=== PATIENT | male | born 1930 | race Caucasian/White ===

== ENCOUNTER 2020-06-14 21:06 | Inpatient (IN) | payer MEDICARE ==
--- NOTE | 2020-06-14 21:25 | ED ---
General Adult HPI - General Chief complaint: Urogenital Stated complaint: Dehydration Time Seen by Provider: 06/14/20 21:09 Source: patient, EMS Mode of arrival: EMS Limitations: altered mental status - History of Present Illness Initial comments: Patient presents the ED by ambulance from his assisted living facility for evaluation of urinary retention. Per EMS, it was reported to them that the patient's Barnard catheter has not been draining urine today. Patient is noted to have abrasions to the right side of his scalp on arrival to the ED, which EMS states the patient sustained from a fall that he had a few days ago, but the assisted living facility staff were not concerned about this. History from the patient is very limited secondary to dementia. Patient repeatedly states "I am " when asked how he feels. Patient denies having any pain to me. Patient is able to tell me his name, but he is disoriented to place and time. Patient is reportedly DO NOT RESUSCITATE. - Related Data Home Medications Medication Instructions Recorded Confirmed Citalopram Hydrobromide [CeleXA] 20 mg PO DAILY 06/14/20 06/14/20 Donepezil [Aricept] 10 mg PO DAILY 06/14/20 06/14/20 Naproxen Sodium [Aleve] 220 mg PO DAILY PRN 06/14/20 06/14/20 Tamsulosin HCl [Flomax] 0.4 mg PO BID 06/14/20 06/14/20 Allergies Allergy/AdvReac Type Severity Reaction Status Date / Time No Known Allergies Allergy Unverified 06/14/20 21:29 Review of Systems ROS Statement: Those systems with pertinent positive or pertinent negative responses have been documented in the HPI. ROS Other: All systems not noted in ROS Statement are negative. Limitations: ROS unobtainable due to patients medical condition Past Medical History Past Medical History: Dementia, Osteoarthritis (OA), Prostate Disorder History of Any Multi-Drug Resistant Organisms: None Reported Additional Past Surgical History / Comment(s): urogenital implants Past Psychological History: Depression Smoking Status: Former smoker Past Alcohol Use History: None Reported Past Drug Use History: None Reported General Exam Limitations: no limitations General appearance: alert, in no apparent distress Head exam: Present: other (Superficial abrasions are noted to the right side of the patient's frontal scalp) Eye exam: Present: normal appearance, PERRL, EOMI ENT exam: Present: mucous membranes moist, TM's normal bilaterally Neck exam: Present: other (Trachea is in midline). Absent: tenderness Respiratory exam: Present: normal lung sounds bilaterally. Absent: respiratory distress, wheezes, rales, rhonchi Cardiovascular Exam: Present: regular rate, irregular rhythm, normal heart sounds, other (Normal radial pulses bilaterally) GI/Abdominal exam: Present: soft. Absent: distended, tenderness, guarding exam: Present: other (a Barnard catheter is in place with no urine draining from the catheter; there is some blood noted around the patient's urethral meatus). Absent: scrotal swelling Extremities exam: Absent: tenderness, pedal edema Back exam: Absent: CVA tenderness (R), CVA tenderness (L) Neurological exam: Present: alert, other (Patient is oriented to himself, but not to time or place). Absent: motor sensory deficit Psychiatric exam: Present: normal affect, normal mood Skin exam: Present: warm, dry, intact, normal color Course Vital Signs 06/14/20 06/14/20 21:14 22:05 Temperature 98.0 F Pulse Rate 109 H 105 H Respiratory 18 16 Rate Blood Pressure 124/69 96/59 O2 Sat by Pulse 99 98 Oximetry - Reevaluation(s) Reevaluation #1: 06/14/20 22:41 Case, H&P, test results and ED management were discussed with Dr. Ni. He accepts hospital admission. He has no further recommendations at this time. EKG Findings - EKG Comments: EKG Findings:: Atrial fibrillation with RVR, ventricular rate of 110 bpm, normal QRS duration, normal QT interval, normal axis, nonspecific ST and T-wave abnormality Medical Decision Making - Medical Decision Making Patient's Barnard catheter was exchanged in the ED by ED nursing staff with an immediate output of about 1 L of urine. Some purulent drainage was also noted draining into the patient's catheter. Patient's laboratory evaluation reveals renal insufficiency of unknown chronicity, as well as hypernatremia. Patient's urinalysis also appears to demonstrate possible infection, and given patient's leukocytosis, patient was treated with IV Rocephin for suspected UTI. Dr. Ni has accepted hospital admission for further evaluation and management. - Lab Data Result diagrams: 06/14/20 21:42 06/14/20 21:42 Lab Results 06/14/20 06/14/20 06/14/20 Range/Units 21:42 21:42 21:42 WBC 17.1 H (3.8-10.6) k/uL RBC 4.34 (4.30-5.90) m/uL Hgb 12.7 L (13.0-17.5) gm/dL Hct 39.2 (39.0-53.0) % MCV 90.2 (80.0-100.0) fL MCH 29.2 (25.0-35.0) pg MCHC 32.3 (31.0-37.0) g/dL RDW 13.6 (11.5-15.5) % Plt Count 550 H (150-450) k/uL MPV 7.5 Neutrophils % 87 % Lymphocytes % 8 % Monocytes % 4 % Eosinophils % 1 % Basophils % 0 % Neutrophils # 14.8 H (1.3-7.7) k/uL Lymphocytes # 1.4 (1.0-4.8) k/uL Monocytes # 0.6 (0-1.0) k/uL Eosinophils # 0.1 (0-0.7) k/uL Basophils # 0.1 (0-0.2) k/uL PT 12.9 H (9.0-12.0) sec INR 1.3 H (<1.2) APTT 24.7 (22.0-30.0) sec Sodium 153 H (137-145) mmol/L Potassium 3.9 (3.5-5.1) mmol/L Chloride 121 H (98-107) mmol/L Carbon Dioxide 28 (22-30) mmol/L Anion Gap 4 mmol/L BUN 69 H (9-20) mg/dL Creatinine 2.07 H (0.66-1.25) mg/dL Est GFR (CKD-EPI)AfAm 32 (>60 ml/min/1.73 sqM) Est GFR (CKD-EPI)NonAf 28 (>60 ml/min/1.73 sqM) Glucose 142 H (74-99) mg/dL Plasma Lactic Acid Roger (0.7-2.0) mmol/L Calcium 8.8 (8.4-10.2) mg/dL Total Bilirubin 0.8 (0.2-1.3) mg/dL AST 26 (17-59) U/L ALT 27 (4-49) U/L Alkaline Phosphatase 98 (38-126) U/L Total Protein 6.3 (6.3-8.2) g/dL Albumin 2.7 L (3.5-5.0) g/dL Urine Color Urine Appearance (Clear) Urine pH (5.0-8.0) Ur Specific [place] (1.001-1.035) Urine Protein (Negative) Urine Glucose (UA) (Negative) Urine Ketones (Negative) Urine Blood (Negative) Urine Nitrite (Negative) Urine Bilirubin (Negative) Urine Urobilinogen (<2.0) mg/dL Ur Leukocyte Esterase (Negative) Urine RBC (0-5) /hpf Urine WBC (0-5) /hpf Urine WBC Clumps (None) /hpf 06/14/20 06/14/20 Range/Units 21:42 22:02 WBC (3.8-10.6) k/uL RBC (4.30-5.90) m/uL Hgb (13.0-17.5) gm/dL Hct (39.0-53.0) % MCV (80.0-100.0) fL MCH (25.0-35.0) pg MCHC (31.0-37.0) g/dL RDW (11.5-15.5) % Plt Count (150-450) k/uL MPV Neutrophils % % Lymphocytes % % Monocytes % % Eosinophils % % Basophils % % Neutrophils # (1.3-7.7) k/uL Lymphocytes # (1.0-4.8) k/uL Monocytes # (0-1.0) k/uL Eosinophils # (0-0.7) k/uL Basophils # (0-0.2) k/uL PT (9.0-12.0) sec INR (<1.2) APTT (22.0-30.0) sec Sodium (137-145) mmol/L Potassium (3.5-5.1) mmol/L Chloride (98-107) mmol/L Carbon Dioxide (22-30) mmol/L Anion Gap mmol/L BUN (9-20) mg/dL Creatinine (0.66-1.25) mg/dL Est GFR (CKD-EPI)AfAm (>60 ml/min/1.73 sqM) Est GFR (CKD-EPI)NonAf (>60 ml/min/1.73 sqM) Glucose (74-99) mg/dL Plasma Lactic Acid Roger 2.0 (0.7-2.0) mmol/L Calcium (8.4-10.2) mg/dL Total Bilirubin (0.2-1.3) mg/dL AST (17-59) U/L ALT (4-49) U/L Alkaline Phosphatase (38-126) U/L Total Protein (6.3-8.2) g/dL Albumin (3.5-5.0) g/dL Urine Color Light Yellow Urine Appearance Turbid (Clear) Urine pH 5.5 (5.0-8.0) Ur Specific [place] 1.014 (1.001-1.035) Urine Protein 1+ H (Negative) Urine Glucose (UA) Negative (Negative) Urine Ketones Negative (Negative) Urine Blood Large H (Negative) Urine Nitrite Negative (Negative) Urine Bilirubin Negative (Negative) Urine Urobilinogen <2.0 (<2.0) mg/dL Ur Leukocyte Esterase Large H (Negative) Urine RBC >182 H (0-5) /hpf Urine WBC >182 H (0-5) /hpf Urine WBC Clumps Many H (None) /hpf Disposition Clinical Impression: Urinary retention, Fall, Scalp abrasion, UTI (urinary tract infection), Hypernatremia, Renal insufficiency Disposition: ADMITTED IP TO THIS [facility] Condition: Stable Is patient prescribed a controlled substance at d/c from ED?: No Referrals: Nonstaff,Physician [Primary Care Provider] - 1-2 days Time of Disposition: 22:41
[2020-06-14] MEDS ORDERED: DIPH,PERTUS(ACELL)TETVAC-LF 0.5 ML VIAL IM ONE (21:28)
[2020-06-14 22:09] LABS: Appearance,Urine Turbid (Clear); Bilirubin,Urine Negative (Negative); Blood,Urine Large (Negative); Color,Urine Light Yellow; Glucose,Urine (UA) Negative (Negative); Ketones,Urine Negative (Negative); Leukocyte Esterase,Urine Large (Negative); Nitrite,Urine Negative (Negative); PH, Urine 5.5 (5.0-8.0); Protein,Urine 1+ (Negative); RBC,Urine >182 /hpf (0-5); Specific Gravity,Urine 1.014 (1.001-1.035); Urobilinogen,Urine <2.0 mg/dL (<2.0); WBC,Urine >182 /hpf (0-5)
[2020-06-14 22:10] LABS: Basophils # (A) 0.1 k/uL (0-0.2); Basophils % (A) 0 %; Eosinophils # (A) 0.1 k/uL (0-0.7); Eosinophils % (A) 1 %; HCT 39.2 % (39.0-53.0); HGB 12.7 gm/dL (13.0-17.5); Lymphocytes # (A) 1.4 k/uL (1.0-4.8); Lymphocytes % (A) 8 %; MCH 29.2 pg (25.0-35.0); MCHC 32.3 g/dL (31.0-37.0); MCV 90.2 fL (80.0-100.0); Mean Platelet Volume 7.5; Monocytes # (A) 0.6 k/uL (0-1.0); Monocytes % (A) 4 %; Neutrophils # (A) 14.8 k/uL (1.3-7.7); Neutrophils % (A) 87 %; Platelet Count 550 k/uL (150-450); RBC 4.34 m/uL (4.30-5.90); RDW 13.6 % (11.5-15.5); WBC 17.1 k/uL (3.8-10.6)
[2020-06-14] MEDS ORDERED: SODIUM CHLORIDE 0.9% 1,000 ML IV ONE (22:13)
[2020-06-14 22:24] LABS: Albumin 2.7 g/dL (3.5-5.0); Calcium 8.8 mg/dL (8.4-10.2); Potassium 3.9 mmol/L (3.5-5.1); Total Bilirubin 0.8 mg/dL (0.2-1.3); Total Protein 6.3 g/dL (6.3-8.2)
[2020-06-14 22:28] LABS: INR 1.3 (<1.2); Partial Thromboplastin Time 24.7 sec (22.0-30.0); Prothrombin Time 12.9 sec (9.0-12.0)
--- NOTE | 2020-06-14 22:32 | CT ---
EXAMINATION TYPE: CT brain jael gutierrez DATE OF EXAM: 06/14/2020 COMPARISON: None HISTORY: Fall injury CT DLP: 1325 mGycm Automated exposure control for dose reduction was used. There is cerebral cortical atrophy. There is no mass effect nor midline shift. There is no sign of in tracranial hemorrhage. There is hypodensity in the periventricular white matter and more noticeable a round the frontal lobes. The calvarium is intact. Skull base is intact. Cervical vertebra have normal alignment. There is mild spurring anteriorly in the lower cervical spin e. There is no compression fracture. Facet joints are intact. There is mild spurring of the facet chantel nts. There is fracture of the medial and of the left clavicle with impaction and callus formation. IMPRESSION: Cerebral atrophy. Chronic small vessel ischemia. No acute intracranial abnormality. Mild spondylotic changes in the cervical spine. No fracture. Healing fracture of the medial left clavicle.
[2020-06-14] MEDS ORDERED: SODIUM CHLORIDE 0.9% 1,000 ML IV SCH (22:45)
[2020-06-15] MEDS ORDERED: SODIUM CHLORIDE 0.45% 1,000 ML IV SCH (01:30)
[2020-06-15 06:44] LABS: Basophils % (A) 0 %; Eosinophils # (A) 0.1 k/uL (0-0.7); Eosinophils % (A) 1 %; HCT 33.4 % (39.0-53.0); HGB 10.7 gm/dL (13.0-17.5); Hypochromasia Slight; Lymphocytes # (A) 1.5 k/uL (1.0-4.8); Lymphocytes % (A) 10 %; MCH 29.5 pg (25.0-35.0); MCHC 32.2 g/dL (31.0-37.0); MCV 91.5 fL (80.0-100.0); Mean Platelet Volume 7.1; Monocytes # (A) 0.5 k/uL (0-1.0); Monocytes % (A) 3 %; Neutrophils # (A) 13.1 k/uL (1.3-7.7); Neutrophils % (A) 86 %; Platelet Count 502 k/uL (150-450); RBC 3.65 m/uL (4.30-5.90); RDW 13.8 % (11.5-15.5); WBC 15.3 k/uL (3.8-10.6)
[2020-06-15 06:57] LABS: Albumin 2.4 g/dL (3.5-5.0); Total Protein 5.6 g/dL (6.3-8.2)
[2020-06-15 07:12] LABS: Potassium 3.6 mmol/L (3.5-5.1); Total Bilirubin 0.7 mg/dL (0.2-1.3)
[2020-06-15 07:28] VITALS: RESP 16
[2020-06-15] MEDS: DONEPEZIL 10 MG TAB PO SCH (07:28)
[2020-06-15] MEDS: CITALOPRAM HYDROBROMIDE 20 MG TAB PO SCH (07:28)
[2020-06-15] MEDS: TAMSULOSIN 0.4 MG CAP.ER.24H PO SCH ×2 (07:28→19:47)
[2020-06-15] MEDS: DEXTROSE 5%-0.9% NACL 1,000 ML IV SCH (11:16)
--- NOTE | 2020-06-15 13:30 | P.HPIM ---
History of Present Illness His is a pleasant 89-year-old male with advanced dementia, unable to provide any history to me came in for urinary retention secondary to clogged or obstructed Barnard catheter..Patient's Barnard catheter was replaced and patient has a chronic Barnard catheter. Patient urine is significantly abnormal which is not unexpected. Patient was a started on Rocephin for possible urinary tract infection although patient is significantly dehydrated and do not have his baseline creatinine but his BNP creatinine are elevated to 69 and 2.07 with hypernatremia and hyperchloremia. Patient has advanced dementia extreme poor functionality. Review of Systems REVIEW OF SYSTEMS: Unable to obtain due to his clinical condition Past Medical History Past Medical History: Dementia, Osteoarthritis (OA), Prostate Disorder History of Any Multi-Drug Resistant Organisms: None Reported Additional Past Surgical History / Comment(s): urogenital implants Past Psychological History: Depression Smoking Status: Former smoker Past Alcohol Use History: None Reported Past Drug Use History: None Reported Medications and Allergies Home Medications Medication Instructions Recorded Confirmed Type Citalopram Hydrobromide [CeleXA] 20 mg PO DAILY 06/14/20 06/14/20 History Donepezil [Aricept] 10 mg PO DAILY 06/14/20 06/14/20 History Naproxen Sodium [Aleve] 220 mg PO DAILY PRN 06/14/20 06/14/20 History Tamsulosin HCl [Flomax] 0.4 mg PO BID 06/14/20 06/14/20 History Allergies Allergy/AdvReac Type Severity Reaction Status Date / Time No Known Allergies Allergy Unverified 06/14/20 21:29 Physical Exam Vitals: Vital Signs Temp Pulse Pulse Resp BP BP Pulse Ox 06/15/20 07:00 98 F 94 16 119/77 99 06/15/20 02:20 98.0 F 98 17 97/63 99 06/15/20 00:20 101 H 16 06/15/20 00:10 97.9 F 101 H 16 109/72 95 06/14/20 23:34 105 H 16 107/65 98 06/14/20 22:50 108 H 16 109/69 98 06/14/20 22:05 105 H 16 96/59 98 06/14/20 21:14 98.0 F 109 H 18 124/69 99 Intake and Output 06/14/20 06/15/20 06/15/20 22:59 06:59 14:59 Output Total 300 Balance -300 Output: Urine 300 Other: Voiding Method Indwelling Catheter Indwelling Catheter Indwelling Catheter # Bowel Movements 1 Weight 131 kg 131 kg PHYSICAL EXAMINATION: GENERAL: The patient is drowsy, oriented 1 not in respiratory distress HEENT: Pupils are round and equally reacting to light. EOMI. No scleral icterus. No conjunctival pallor. Normocephalic, atraumatic. No pharyngeal erythema. No thyromegaly. CARDIOVASCULAR: S1 and S2 present. No murmurs, rubs, or gallops. PULMONARY: Unable to assess as patient doesn't follow commands ABDOMEN: Soft, nontender, nondistended, normoactive bowel sounds. No palpable organomegaly. MUSCULOSKELETAL: No joint swelling or deformity. EXTREMITIES: No cyanosis, clubbing, or pedal edema. NEUROLOGICAL: Unable to assess patient has advanced dementia SKIN: No rashes. Results CBC & Chem 7: 06/15/20 06:18 06/15/20 06:18 Labs: Abnormal Lab Results - Last 24 Hours (Table) 06/14/20 06/14/20 06/14/20 Range/Units 21:42 21:42 21:42 WBC 17.1 H (3.8-10.6) k/uL RBC (4.30-5.90) m/uL Hgb 12.7 L (13.0-17.5) gm/dL Hct (39.0-53.0) % Plt Count 550 H (150-450) k/uL Neutrophils # 14.8 H (1.3-7.7) k/uL PT 12.9 H (9.0-12.0) sec INR 1.3 H (<1.2) Sodium 153 H (137-145) mmol/L Chloride 121 H (98-107) mmol/L BUN 69 H (9-20) mg/dL Creatinine 2.07 H (0.66-1.25) mg/dL Glucose 142 H (74-99) mg/dL Calcium (8.4-10.2) mg/dL Total Protein (6.3-8.2) g/dL Albumin 2.7 L (3.5-5.0) g/dL Urine Protein (Negative) Urine Blood (Negative) Ur Leukocyte Esterase (Negative) Urine RBC (0-5) /hpf Urine WBC (0-5) /hpf Urine WBC Clumps (None) /hpf 06/14/20 06/15/20 06/15/20 Range/Units 21:42 06:18 06:18 WBC 15.3 H (3.8-10.6) k/uL RBC 3.65 L (4.30-5.90) m/uL Hgb 10.7 L (13.0-17.5) gm/dL Hct 33.4 L (39.0-53.0) % Plt Count 502 H (150-450) k/uL Neutrophils # 13.1 H (1.3-7.7) k/uL PT (9.0-12.0) sec INR (<1.2) Sodium 154 H (137-145) mmol/L Chloride 123 H (98-107) mmol/L BUN 64 H (9-20) mg/dL Creatinine 1.91 H (0.66-1.25) mg/dL Glucose 107 H (74-99) mg/dL Calcium 8.0 L (8.4-10.2) mg/dL Total Protein 5.6 L (6.3-8.2) g/dL Albumin 2.4 L (3.5-5.0) g/dL Urine Protein 1+ H (Negative) Urine Blood Large H (Negative) Ur Leukocyte Esterase Large H (Negative) Urine RBC >182 H (0-5) /hpf Urine WBC >182 H (0-5) /hpf Urine WBC Clumps Many H (None) /hpf Microbiology - Last 24 Hours (Table) 06/14/20 21:42 Urine Culture - Preliminary Urine,Clean Catch Thrombosis Risk Factor Assmnt - Choose All That Apply Each Risk Factor Represents 3 Points: Age 75 years or older Other congenital or acquired thrombophilia - If yes, enter type in comment: No Thrombosis Risk Factor Assessment Total Risk Factor Score: 3 Thrombosis Risk Factor Assessment Level: Moderate Risk Assessment and Plan Plan: -Dehydration, acute renal failure secondary to prerenal azotemia and dehydration: Patient was started on D5 water will be continued today possibility of discharge tomorrow -Clogged Barnard catheter with positive urinary tract infection patient's Barnard catheter was replaced in draining well for now will continue with antibiotic may not need antibiotics upon discharge patient does have leukocytosis which can be reactive or secondary to urinary tract infection -Hypernatremia: Hypovolemic hypernatremia D5 water as mentioned above -Advanced dementia most probably either vascular or senile dementia: Supportive care -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
[2020-06-15] MEDS: HEPARIN SODIUM,PORCINE 5,000 UNIT/ML 1 ML VIAL SQ SCH (19:47)
[2020-06-15 21:48] VITALS: BP 122/75; PULSE 91
[2020-06-16] MEDS: DEXTROSE 5%-0.9% NACL 1,000 ML IV SCH ×2 (01:19→11:40)
[2020-06-16 06:06] VITALS: TEMP 97.4
[2020-06-16 06:08] LABS: HCT 36.9 % (39.0-53.0); HGB 11.8 gm/dL (13.0-17.5); Hypochromasia Moderate; MCH 29.8 pg (25.0-35.0); MCHC 32.1 g/dL (31.0-37.0); MCV 92.9 fL (80.0-100.0); Mean Platelet Volume 7.3; Platelet Count 399 k/uL (150-450); RBC 3.97 m/uL (4.30-5.90); RDW 13.9 % (11.5-15.5); WBC 12.9 k/uL (3.8-10.6)
[2020-06-16] MEDS: TAMSULOSIN 0.4 MG CAP.ER.24H PO SCH (06:49)
[2020-06-16] MEDS: CITALOPRAM HYDROBROMIDE 20 MG TAB PO SCH (06:49)
[2020-06-16] MEDS: DONEPEZIL 10 MG TAB PO SCH (06:49)
[2020-06-16] MEDS: HEPARIN SODIUM,PORCINE 5,000 UNIT/ML 1 ML VIAL SQ SCH (06:49)
[2020-06-16 10:20] LABS: African American GFR (CKD) 47.5 (60.0-200.0); Anion Gap 8.4 mmol/L (4.00-12.00); BUN/Creat Ratio 31.33 Ratio (12.00-20.00); Calcium 8.1 mg/dL (8.7-10.3); Carbon Dioxide 23.6 mmol/L (21.6-31.8); Potassium 4.4 mmol/L (3.5-5.5)
--- NOTE | 2020-06-16 12:05 | P.DS ---
Providers Date of admission: 06/14/20 22:42 Expected date of discharge: 06/16/20 Attending physician: Ana Ni Primary care physician: Physician Nonstaff Hospital Course: Final diagnosis -Dehydration, acute renal failure secondary to prerenal azotemia and dehydration: Patient was started on D5 water will be continued today possibility of discharge tomorrow -Clogged Barnard catheter with possible urinary tract infection, patient's Barnard catheter was replaced in draining well for now will continue with antibiotic may not need antibiotics upon discharge patient does have leukocytosis which can be reactive or secondary to urinary tract infection -Hypernatremia: Hypovolemic hypernatremia, improving -Advanced dementia most probably either vascular or senile dementia: Supportive care -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 Patient will follow-up with visiting physicians in the outpatient setting upon discharge. Patient is to continue with antibiotics in the form of Ceftin 500 mg twice daily for the next 3 days and then may discontinue. Total time taken is greater than 35 minutes. History of present illness This is an 89-year-old male who was recently admitted with urinary retention secondary to a clogged or obstructed indwelling Barnard catheter which is chronic. Catheter was replaced and patient was placed on ceftriaxone. Patient will continue on oral Ceftin 500 mg twice daily for the next 3 days to complete the course. Urine cultures thus far not growing any form of bacteria. Patient has advanced dementia with extreme poor functionality and will be returning to [facility] where he resides. Patient will be following up with visiting physicians in the outpatient setting. During hospitalization patient was also maintained on gentle IV hydration creatinine improved and is currently 1.5 with a BUN of 47. Potassium today is 4.4 and sodium slightly trending down at 152. Recommend repeat labs in 2-3 days to monitor sodium levels. Patient was seen and evaluated by PT/OT recommending continued rehab in the outpatient setting to increase strength and functional mobility. Currently no reports of chest pain, shortness of breath, or palpitations. Patient is afebrile. No reports of nausea or vomiting and patient is tolerating diet. Patient will be going to [facility] today. On exam vital signs are stable. Temp is 97.4F, pulse is 91, respirations are 16, blood pressure is 122/75, oxygen saturation is 99% on room air. Cardio S1, S2 are muffled. Respiratory system shows diminished breath sounds at the bases with no wheezing or rhonchi noted. Abdomen is soft and nontender. Nervous system shows diffuse weakness. Please refer to medication reconciliation sheet for a list of medications. Patient Condition at Discharge: Stable Plan - Discharge Summary Discharge Rx Participant: No New Discharge Prescriptions: New Cefuroxime Axetil [Ceftin] 500 mg PO BID 3 Days #6 tab Continue Tamsulosin HCl [Flomax] 0.4 mg PO BID Naproxen Sodium [Aleve] 220 mg PO DAILY PRN PRN Reason: Pain Donepezil [Aricept] 10 mg PO DAILY Citalopram Hydrobromide [CeleXA] 20 mg PO DAILY Discharge Medication List Citalopram Hydrobromide [CeleXA] 20 mg PO DAILY 06/14/20 [History] Donepezil [Aricept] 10 mg PO DAILY 06/14/20 [History] Naproxen Sodium [Aleve] 220 mg PO DAILY PRN 06/14/20 [History] Tamsulosin HCl [Flomax] 0.4 mg PO BID 06/14/20 [History] Cefuroxime Axetil [Ceftin] 500 mg PO BID 3 Days #6 tab 06/16/20 [Rx] Follow up Appointment(s)/Referral(s): Nonstaff,Physician [Primary Care Provider] - 1-2 days Activity/Diet/Wound Care/Special Instructions: [facility] was referred, they can be contacted at [phone] Activity as tolerated Continue with antibiotics for 3 days until finished and then may discontinue Continue renal diet low potassium, low phosphorus, low sodium Follow-up with primary care provider upon discharge Discharge Disposition: TRANSFER TO SNF/ECF
== END 2020-06-16 14:52 | disposition home health service (06) | DRG 699 ==
LOC: EC 21:06 → 5NMEDONC 22:42
PROVIDERS: ADMIT Internal Medicine; ATTEND Internal Medicine
DX: T83.091A Other mechanical complication of indwelling urethral catheter, initial encounter (principal); N39.0 Urinary tract infection, site not specified; N17.9 Acute kidney failure, unspecified; E87.0 Hyperosmolality and hypernatremia; N13.8 Other obstructive and reflux uropathy; E86.0 Dehydration; Z66 Do not resuscitate; E86.1 Hypovolemia; E87.8 Other disorders of electrolyte and fluid balance, not elsewhere classified; Z20.828 Contact with and (suspected) exposure to other viral communicable diseases; R79.89 Other specified abnormal findings of blood chemistry; Y73.8 Miscellaneous gastroenterology and urology devices associated with adverse incidents, not elsewhere classified; F03.90 Unspecified dementia, unspecified severity, without behavioral disturbance, psychotic disturbance, mood disturbance, and anxiety; F32.9 Major depressive disorder, single episode, unspecified; N40.1 Benign prostatic hyperplasia with lower urinary tract symptoms; M19.90 Unspecified osteoarthritis, unspecified site; Z79.899 Other long term (current) drug therapy; Z87.891 Personal history of nicotine dependence
CPT/HCPCS: 36415; 51702; 70450; 72125; 80048; 80053; 81001; 83605; 85025; 85027; 85610; 85730; 87040; 87086; 87635; 90471; 90715; 93005; 96361; 96365; 99285

== ENCOUNTER 2020-07-16 04:52 | Emergency (ER) | payer MEDICARE ==
[2020-07-16 05:00] VITALS: RESP 18; TEMP 98.1
[2020-07-16 05:02] VITALS: PULSE 81
--- NOTE | 2020-07-16 05:04 | ED ---
Male Urogenital HPI - General Chief complaint: Urogenital Stated complaint: Male Time Seen by Provider: 07/16/20 04:54 Source: patient, EMS, RN notes reviewed, old records reviewed Mode of arrival: EMS Limitations: altered mental status - History of Present Illness Initial comments: This is a 81-year-old male DF for evaluation patient Dese for Perez malfunction. Patient's here for replacement of Perez. There has been some blood in the Perez tonight in the foyer does not appear to be working pricks a care facility. Patient otherwise has complaints abdominal pain but no other new complaints MD Complaint: dysuria (hematuria), other (perez is not working) -: unknown Location: penis Radiation: none Severity: moderate Severity scale (1-10): 5 Consistency: constant Improves with: none Worsens with: none indwelling catheter Reports: urinary retention, blood in urine - Related Data Home Medications Medication Instructions Recorded Confirmed Citalopram Hydrobromide [CeleXA] 20 mg PO DAILY 06/14/20 06/14/20 Donepezil [Aricept] 10 mg PO DAILY 06/14/20 06/14/20 Naproxen Sodium [Aleve] 220 mg PO DAILY PRN 06/14/20 06/14/20 Tamsulosin HCl [Flomax] 0.4 mg PO BID 06/14/20 06/14/20 Previous Rx's Medication Instructions Recorded Cefuroxime Axetil [Ceftin] 500 mg PO BID 3 Days #6 tab 06/16/20 Allergies Allergy/AdvReac Type Severity Reaction Status Date / Time No Known Allergies Allergy Verified 07/16/20 05:00 Review of Systems ROS Statement: Those systems with pertinent positive or pertinent negative responses have been documented in the HPI. ROS Other: All systems not noted in ROS Statement are negative. Past Medical History Past Medical History: Dementia, Osteoarthritis (OA), Prostate Disorder History of Any Multi-Drug Resistant Organisms: None Reported Additional Past Surgical History / Comment(s): urogenital implants Past Psychological History: Depression Smoking Status: Former smoker Past Alcohol Use History: None Reported Past Drug Use History: None Reported General Exam Limitations: altered mental status General appearance: alert, in no apparent distress Head exam: Present: atraumatic, normocephalic, normal inspection Eye exam: Present: normal appearance, PERRL, EOMI. Absent: scleral icterus, conjunctival injection, periorbital swelling ENT exam: Present: normal exam, mucous membranes moist Neck exam: Present: normal inspection. Absent: tenderness, meningismus, lymphadenopathy Respiratory exam: Present: normal lung sounds bilaterally. Absent: respiratory distress, wheezes, rales, rhonchi, stridor Cardiovascular Exam: Present: regular rate, normal rhythm, normal heart sounds. Absent: systolic murmur, diastolic murmur, rubs, gallop, clicks GI/Abdominal exam: Present: soft, normal bowel sounds. Absent: distended, tenderness, guarding, rebound, rigid Extremities exam: Present: normal inspection, full ROM, normal capillary refill. Absent: tenderness, pedal edema, joint swelling, calf tenderness Back exam: Present: normal inspection Neurological exam: Present: alert, oriented X3, CN II-XII intact Psychiatric exam: Present: normal affect, normal mood Skin exam: Present: warm, dry, intact, normal color. Absent: rash Course Vital Signs 07/16/20 07/16/20 07/16/20 04:56 05:00 06:09 Temperature 98.1 F 98.1 F Pulse Rate 80 81 81 Respiratory 18 18 18 Rate Blood Pressure 153/100 149/95 149/81 O2 Sat by Pulse 98 98 98 Oximetry - Reevaluation(s) Reevaluation #1: 07/16/20 05:10 medical record is reviewed Perez catheter is replaced without difficulty Patient is informed of results here in the ER and questions are answered Patient spoken with, feeling better, symptoms remained improved Patient is okay for discharge Medical Decision Making - Medical Decision Making 89 male DF for evaluation. Perez is replaced here in the ER for urinary retention. Patient can be discharged home Disposition Clinical Impression: Urinary retention, Malfunction of Perez catheter Disposition: HOME SELF-CARE Condition: Good Instructions (If sedation given, give patient instructions): Perez Catheter Placement and Care (ED) Is patient prescribed a controlled substance at d/c from ED?: No Referrals: Nonstaff,Physician [Primary Care Provider] - 1-2 days
[2020-07-16 06:10] VITALS: BP 149/81
== END 2020-07-16 06:10 | disposition home or self-care (01) ==
LOC: EC 04:52
DX: R33.9 Retention of urine, unspecified (principal); T83.018A Breakdown (mechanical) of other urinary catheter, initial encounter; F32.9 Major depressive disorder, single episode, unspecified; F03.90 Unspecified dementia, unspecified severity, without behavioral disturbance, psychotic disturbance, mood disturbance, and anxiety; M19.90 Unspecified osteoarthritis, unspecified site; Z79.899 Other long term (current) drug therapy; Z87.891 Personal history of nicotine dependence
CPT/HCPCS: 51702; 99284

== ENCOUNTER 2020-07-21 23:48 | Inpatient (IN) | payer MEDICARE ==
[2020-07-22] MEDS ORDERED: ACETAMINOPHEN TAB 500 MG TAB PO STA (00:07)
--- NOTE | 2020-07-22 00:07 | ED ---
Weakness HPI - General Chief complaint: Fall Stated complaint: Fall Time Seen by Provider: 07/22/20 00:05 Source: patient, EMS, RN notes reviewed, old records reviewed Mode of arrival: EMS Limitations: altered mental status - History of Present Illness Initial comments: A fall tonight which sustained laceration over left eye, patient otherwise is awake alert, feeling mildly weak over the last few days, multiple hospital admissions. But no recent travel history sick contacts. Patient has noted a fever today patient is a poor strain secondary to underlying dementia - Related Data Home Medications Medication Instructions Recorded Confirmed Citalopram Hydrobromide [CeleXA] 20 mg PO DAILY 06/14/20 06/14/20 Donepezil [Aricept] 10 mg PO DAILY 06/14/20 06/14/20 Naproxen Sodium [Aleve] 220 mg PO DAILY PRN 06/14/20 06/14/20 Tamsulosin HCl [Flomax] 0.4 mg PO BID 06/14/20 06/14/20 Previous Rx's Medication Instructions Recorded Cefuroxime Axetil [Ceftin] 500 mg PO BID 3 Days #6 tab 06/16/20 Allergies Allergy/AdvReac Type Severity Reaction Status Date / Time No Known Allergies Allergy Verified 07/16/20 05:00 Review of Systems ROS Statement: Those systems with pertinent positive or pertinent negative responses have been documented in the HPI. ROS Other: All systems not noted in ROS Statement are negative. Past Medical History Past Medical History: Dementia, Osteoarthritis (OA), Prostate Disorder History of Any Multi-Drug Resistant Organisms: None Reported Additional Past Surgical History / Comment(s): urogenital implants Past Psychological History: Depression Smoking Status: Former smoker Past Alcohol Use History: None Reported Past Drug Use History: None Reported General Exam Limitations: altered mental status General appearance: alert, in no apparent distress Head exam: Present: atraumatic, normocephalic, normal inspection Eye exam: Present: normal appearance, PERRL, EOMI. Absent: scleral icterus, conjunctival injection, periorbital swelling ENT exam: Present: normal exam, mucous membranes moist Neck exam: Present: normal inspection. Absent: tenderness, meningismus, lymphadenopathy Respiratory exam: Present: normal lung sounds bilaterally. Absent: respiratory distress, wheezes, rales, rhonchi, stridor Cardiovascular Exam: Present: regular rate, normal rhythm, normal heart sounds. Absent: systolic murmur, diastolic murmur, rubs, gallop, clicks GI/Abdominal exam: Present: soft, normal bowel sounds. Absent: distended, tenderness, guarding, rebound, rigid Extremities exam: Present: normal inspection, full ROM, normal capillary refill. Absent: tenderness, pedal edema, joint swelling, calf tenderness Back exam: Present: normal inspection Neurological exam: Present: alert, oriented X3, CN II-XII intact Psychiatric exam: Present: normal affect, normal mood Skin exam: Present: warm, dry, intact, normal color. Absent: rash Course Vital Signs 07/21/20 23:51 Temperature 101.4 F H Pulse Rate 72 Respiratory 18 Rate Blood Pressure 152/70 O2 Sat by Pulse 98 Oximetry - Reevaluation(s) Reevaluation #1: 07/22/20 01:51 Medical records reviewed Reevaluation #2: 07/22/20 01:51 Patient is able to rest comfortably throughout ER stay - Consultations Consultation #1: Spoke with [facility] were agreeable to admit this patient EKG Findings - EKG Comments: EKG Findings:: EKG is sinus 70, MN 158 QRS 80 QTC 408 Medical Decision Making - Medical Decision Making 89 male status post fall which he did sustain a forehead laceration which is repaired patient also has fever, pneumonia we'll admit for fever control and IV antibiotics - Lab Data Result diagrams: 07/22/20 00:46 07/22/20 00:46 Lab Results 07/22/20 07/22/20 07/22/20 Range/Units 00:46 00:46 00:46 WBC 6.5 (3.8-10.6) k/uL RBC 4.00 L (4.30-5.90) m/uL Hgb 11.5 L (13.0-17.5) gm/dL Hct 36.0 L (39.0-53.0) % MCV 89.8 (80.0-100.0) fL MCH 28.7 (25.0-35.0) pg MCHC 32.0 (31.0-37.0) g/dL RDW 15.1 (11.5-15.5) % Plt Count 325 (150-450) k/uL MPV 6.7 Neutrophils % 77 % Lymphocytes % 11 % Monocytes % 7 % Eosinophils % 1 % Basophils % 1 % Neutrophils # 5.0 (1.3-7.7) k/uL Lymphocytes # 0.7 L (1.0-4.8) k/uL Monocytes # 0.5 (0-1.0) k/uL Eosinophils # 0.1 (0-0.7) k/uL Basophils # 0.1 (0-0.2) k/uL PT 10.3 (9.0-12.0) sec INR 1.0 (<1.2) APTT 23.4 (22.0-30.0) sec D-Dimer 5.17 H (<0.60) mg/L FEU Sodium 132 L (137-145) mmol/L Potassium 4.9 (3.5-5.1) mmol/L Chloride 104 (98-107) mmol/L Carbon Dioxide 25 (22-30) mmol/L Anion Gap 3 mmol/L BUN 19 (9-20) mg/dL Creatinine 0.85 (0.66-1.25) mg/dL Est GFR (CKD-EPI)AfAm >90 (>60 ml/min/1.73 sqM) Est GFR (CKD-EPI)NonAf 78 (>60 ml/min/1.73 sqM) Glucose 90 (74-99) mg/dL Plasma Lactic Acid Roger (0.7-2.0) mmol/L Calcium 8.5 (8.4-10.2) mg/dL Magnesium 1.9 (1.6-2.3) mg/dL Total Bilirubin 0.5 (0.2-1.3) mg/dL AST 26 (17-59) U/L ALT 14 (4-49) U/L Alkaline Phosphatase 114 (38-126) U/L Lactate Dehydrogenase 625 H (313-618) U/L C-Reactive Protein <5.0 (<10.0) mg/L Total Protein 6.5 (6.3-8.2) g/dL Albumin 3.2 L (3.5-5.0) g/dL Coronavirus (PCR) (Not Detectd) 07/22/20 07/22/20 Range/Units 00:46 01:00 WBC (3.8-10.6) k/uL RBC (4.30-5.90) m/uL Hgb (13.0-17.5) gm/dL Hct (39.0-53.0) % MCV (80.0-100.0) fL MCH (25.0-35.0) pg MCHC (31.0-37.0) g/dL RDW (11.5-15.5) % Plt Count (150-450) k/uL MPV Neutrophils % % Lymphocytes % % Monocytes % % Eosinophils % % Basophils % % Neutrophils # (1.3-7.7) k/uL Lymphocytes # (1.0-4.8) k/uL Monocytes # (0-1.0) k/uL Eosinophils # (0-0.7) k/uL Basophils # (0-0.2) k/uL PT (9.0-12.0) sec INR (<1.2) APTT (22.0-30.0) sec D-Dimer (<0.60) mg/L FEU Sodium (137-145) mmol/L Potassium (3.5-5.1) mmol/L Chloride (98-107) mmol/L Carbon Dioxide (22-30) mmol/L Anion Gap mmol/L BUN (9-20) mg/dL Creatinine (0.66-1.25) mg/dL Est GFR (CKD-EPI)AfAm (>60 ml/min/1.73 sqM) Est GFR (CKD-EPI)NonAf (>60 ml/min/1.73 sqM) Glucose (74-99) mg/dL Plasma Lactic Acid Roger 1.6 (0.7-2.0) mmol/L Calcium (8.4-10.2) mg/dL Magnesium (1.6-2.3) mg/dL Total Bilirubin (0.2-1.3) mg/dL AST (17-59) U/L ALT (4-49) U/L Alkaline Phosphatase (38-126) U/L Lactate Dehydrogenase (313-618) U/L C-Reactive Protein (<10.0) mg/L Total Protein (6.3-8.2) g/dL Albumin (3.5-5.0) g/dL Coronavirus (PCR) Not Detected (Not Detectd) - Radiology Data Radiology results: report reviewed (Chest x-ray shows probable early pneumonia), image reviewed Disposition Clinical Impression: Fall, Malfunction of Barnard catheter, Renal insufficiency, Fever, Pneumonia, Forehead laceration Disposition: ADMITTED IP TO THIS HOSP Condition: Fair Is patient prescribed a controlled substance at d/c from ED?: No Referrals: Nonstaff,Physician [Primary Care Provider] - 1-2 days
[2020-07-22] MEDS ORDERED: IBUPROFEN 800 MG TAB PO STA (00:08)
[2020-07-22 00:58] LABS: Basophils # (A) 0.1 k/uL (0-0.2); Basophils % (A) 1 %; Eosinophils # (A) 0.1 k/uL (0-0.7); Eosinophils % (A) 1 %; HGB 11.5 gm/dL (13.0-17.5); Lymphocytes # (A) 0.7 k/uL (1.0-4.8); Lymphocytes % (A) 11 %; MCH 28.7 pg (25.0-35.0); MCV 89.8 fL (80.0-100.0); Mean Platelet Volume 6.7; Monocytes # (A) 0.5 k/uL (0-1.0); Monocytes % (A) 7 %; Neutrophils % (A) 77 %; Platelet Count 325 k/uL (150-450); RDW 15.1 % (11.5-15.5); WBC 6.5 k/uL (3.8-10.6)
--- NOTE | 2020-07-22 01:09 | XR ---
EXAM: XR Chest, 1 View CLINICAL HISTORY: ITS.REASON XR Reason: Suspected COVID-19 pneumonia TECHNIQUE: Frontal view of the chest. COMPARISON: No previous study. FINDINGS: Lungs: Minimal patchy airspace disease of the right lung base possibly on the basis of early or residual pneumonia. Probable subsegmental atelectasis at the left lung base per Pleural space: Unremarkable. No pneumothorax. Heart: Cardiomegaly. Mediastinum: Unremarkable. Bones/joints: Osteopenia. Upper abdomen: There is elevation of the right hemidiaphragm. IMPRESSION: 1. Possible early or residual pneumonia at the right lung base. Clinical correlation is necessary. 2. Elevation of the right hemidiaphragm. 3. Cardiomegaly.
--- NOTE | 2020-07-22 01:10 | XR ---
EXAM: XR Pelvis, 1 or 2 Views CLINICAL HISTORY: Fall. Pain. TECHNIQUE: Frontal view of the pelvis. COMPARISON: No previous study. FINDINGS: Bones/joints: Mild to moderate osteoarthritic changes about the hip joints. Superior and inferior pubic rami are unremarkable. Moderate osteoarthritic changes about the sacroiliac joints. Gentle levoscoliosis of the lower lumbar spine. No acute fracture. No dislocation. Soft tissues: Unremarkable. Vasculature: Atherosclerotic disease. Pelvic phleboliths. IMPRESSION: 1. Osteoarthritic changes about the hip joints. 2. No acute fracture or dislocation. 3. Atherosclerotic disease.
[2020-07-22 01:14] LABS: ALT 14 U/L (4-49); AST 26 U/L (17-59); African American GFR (CKD) >90 (>60 ml/min/1.73 sqM); Albumin 3.2 g/dL (3.5-5.0); Alkaline Phosphatase 114 U/L (38-126); Anion Gap 3 mmol/L; Blood Urea Nitrogen 19 mg/dL (9-20); C Reactive Protein <5.0 mg/L (<10.0); Calcium 8.5 mg/dL (8.4-10.2); Carbon Dioxide 25 mmol/L (22-30); Chloride 104 mmol/L (98-107); Glucose 90 mg/dL (74-99); LDH 625 U/L (313-618); Magnesium 1.9 mg/dL (1.6-2.3); Non-African American GFR(CKD) 78 (>60 ml/min/1.73 sqM); Sodium 132 mmol/L (137-145); Total Bilirubin 0.5 mg/dL (0.2-1.3); Total Protein 6.5 g/dL (6.3-8.2)
[2020-07-22 01:18] LABS: Potassium 4.9 mmol/L (3.5-5.1)
[2020-07-22 01:19] LABS: Partial Thromboplastin Time 23.4 sec (22.0-30.0); Prothrombin Time 10.3 sec (9.0-12.0)
--- NOTE | 2020-07-22 01:23 | CT ---
EXAM: CT Head Without Intravenous Contrast CLINICAL HISTORY: ITS.REASON CT Reason: fall TECHNIQUE: Axial computed tomography images of the head/brain without intravenous contrast. CTDI is 45.2 mGy and DLP is 1007 mGy-cm. This CT exam was performed using one or more of the following dose reduction techniques: automated exposure control, adjustment of the mA and/or kV according to patient size, and/or use of iterative reconstruction technique. COMPARISON: 06/14/2020. FINDINGS: Brain: Minimal small vessel disease of aging. No abnormal extra-axial collection. No hemorrhage. Ventricles: Unremarkable. No ventriculomegaly. Bones/joints: Calvarium is unremarkable. No acute fracture. Soft tissues: Unremarkable. Sinuses: Mild chronic ethmoid sinusitis. Mastoid air cells: Mastoid air cells are well pneumatized to Other findings: Age-related changes. IMPRESSION: 1. Age-related changes. 2. Small vessel disease of aging. 3. No acute intracranial pathology per 4. If there is concern for etiology such as early acute lacunar infarcts, magnetic resonance imaging of the brain with diffusion-weighted sequences should be performed for follow-up. EXAM: CT Cervical Spine Without Intravenous Contrast CLINICAL HISTORY: ITS.REASON CT Reason: fall TECHNIQUE: Axial computed tomography images of the cervical spine without intravenous contrast. CTDI is 11.47 mGy and DLP is 272.3 mGy-cm. This CT exam was performed using one or more of the following dose reduction techniques: automated exposure control, adjustment of the mA and/or kV according to patient size, and/or use of iterative reconstruction technique. COMPARISON: No previous studies. FINDINGS: Vertebrae: Minimal grade 1 retrolisthesis of C2 upon C3 vertebral body. Visualized thoracic vertebral bodies are maintained in height. Gentle are levoscoliosis of the cervical spine. There is a normal relationship of C1 and C2. No acute fracture. Discs/spinal canal/neural foramina: Moderate to severe degenerative disc disease of the cervical spine. Transaxial images of the cervical spine reveal multilevel posterior facet hypertrophy and disc osteophyte complexes. No spinal canal stenosis. Other bones/joints: Fracture of the medial left clavicle, possibly acute. Clinical correlation is advised. Soft tissues: Unremarkable. Lung apices: Lung apices are unremarkable. Other findings: Spinous processes are unremarkable. IMPRESSION: 1. Fracture of the medial left clavicle is noted. Similar finding was reported on a report from previous study of 06/14/2020. Clinical correlation is advised. Based on report from the previous study, the injuries presumably subacute. 2. Advanced degenerative disc disease of the cervical spine. 3. No acute injury to the cervical spine is detected.
[2020-07-22] MEDS ORDERED: PNEUMONIA PROTOCOL UTILIZED 1 EACH MISC PO PRN (01:49)
[2020-07-22] MEDS ORDERED: AZITHROMYCIN 500 MG in SODIUM CHLORIDE 0.9% 250 ML IVPB STA (01:49)
[2020-07-22 02:17] LABS: Appearance,Urine Turbid (Clear); Bilirubin,Urine Negative (Negative); Blood,Urine Negative (Negative); Color,Urine Yellow; Glucose,Urine (UA) Negative (Negative); Hyaline Casts,Urine 6 /lpf (0-2); Ketones,Urine Negative (Negative); Leukocyte Esterase,Urine Small (Negative); Mucus,Urine Rare /hpf; Nitrite,Urine Negative (Negative); PH, Urine 5.5 (5.0-8.0); Protein,Urine Trace (Negative); RBC,Urine 6 /hpf (0-5); Specific Gravity,Urine 1.015 (1.001-1.035); Uric Acid Crystals,Urine Rare /hpf; Urobilinogen,Urine <2.0 mg/dL (<2.0); WBC,Urine 23 /hpf (0-5)
[2020-07-22] MEDS: SODIUM CHLORIDE 0.9% 1,000 ML IV SCH ×2 (02:17→15:46)
[2020-07-22] MEDS: IPRATROPIUM-ALBUTEROL 3 ML NEB INHALATION PRN ×2 (07:36→11:15)
[2020-07-22] MEDS: ENOXAPARIN 40 MG/0.4 ML SYRINGE SQ SCH (08:29)
[2020-07-22] MEDS: ACETAMINOPHEN TAB 325 MG TAB PO PRN (08:29)
--- NOTE | 2020-07-22 13:56 | US ---
EXAMINATION TYPE: US venous doppler duplex LE BI DATE OF EXAM: 07/22/2020 1:40 PM COMPARISON: NONE CLINICAL HISTORY: 89-year-old male pain, Elevated D Dimer SIDE PERFORMED: Bilateral TECHNIQUE: The lower extremity deep venous system is examined utilizing real time linear array sonog elle with graded compression, doppler sonography and color-flow sonography. FINDINGS: VESSELS IMAGED: Common Femoral Vein Deep Femoral Vein Greater Saphenous Vein * Femoral Vein Popliteal Vein Small Saphenous Vein * Proximal Calf Veins (* superficial vessels) Right Leg: Negative for DVT Left Leg: Negative for DVT IMPRESSION: No evidence for DVT within the bilateral lower extremities imaged from the groin to the upper calves.
--- NOTE | 2020-07-22 14:06 | CT ---
CT CHEST FOR PULMONARY EMBOLISM. EXAMINATION TYPE: CT chest angio for PE DATE OF EXAM: 07/22/2020 INDICATION: positive dimer CT DLP: 294.3 mGycm, Automated exposure control for dose reduction was used. CONTRAST: Patient injected with 100 mL of Isovue 370. COMPARISON: None TECHNIQUE: CT of the chest is performed on a spiral scan at 2 mm thick sections. Study is performed with intravenous contrast timed for evaluation for pulmonary embolism. This will limit additional po rtions of the evaluation. 3-D MIP images reconstructed by the technologist are reviewed on the compu ter in the coronal and sagittal planes. FINDINGS: No persistent filling defects are evident to suggest an acute pulmonary embolism. No mediastinal or hilar adenopathy enlarged by CT criteria is evident. The ascending aorta diameter at the level of the main pulmonary artery is 2.4 cm. The main pulmonary artery diameter at the bifur cation is 3.4 cm. Minimal calcifications along the right diaphragm. There is some mild compressive atelectasis within t he dependent portions of the lung bases. Limited CT section through the upper abdomen are unremarkable. IMPRESSIONS: 1. No acute pulmonary embolism. 2. Minimal infiltrate at the dependent lung bases most likely compressive atelectasis
[2020-07-22] MEDS ORDERED: HYDROcodone/APAP 5-325MG 1 EACH TAB PO PRN (15:00)
[2020-07-22] MEDS: CHOLECALCIFEROL 1,000 UNIT TAB PO SCH (15:45)
[2020-07-22] MEDS: ZINC SULFATE 220 MG CAP PO SCH (15:45)
[2020-07-22] MEDS: DONEPEZIL 10 MG TAB PO SCH (15:45)
[2020-07-22] MEDS: CITALOPRAM HYDROBROMIDE 20 MG TAB PO SCH (15:45)
--- NOTE | 2020-07-22 15:45 | HP ---
HISTORY AND PHYSICAL CHIEF COMPLAINT: Frequent falls. HISTORY OF PRESENT ILLNESS: This 89-year-old gentleman with a past medical history of dementia, history of DJD, history of prostate disorder, history of depression, was complaining of multiple falls. The patient was complaining of weakness and the patient had multiple falls and multiple hospital visits apparently. The patient came to [facility]. Evaluation showed possible UTI as well as elevated D-dimer, but there is no evidence of pulmonary embolism. The patient also has minimal bilateral leg edema. I ordered an ultrasound of the legs which came back negative. A CT angio of the chest which I ordered and personally reviewed showed no evidence of pulmonary embolism, but the CT angio showed evidence of suspected bibasilar atelectasis versus infiltrate. The patient is admitted for further evaluation and treatment. There is no history of any fever, rigor or chills. No history of headache, loss of consciousness, seizures. PAST MEDICAL HISTORY: History of dementia, history of DJD, history of prostate disorder, history of chronic Barnard catheter, history of depression. MEDICATIONS: Medications prior to admission include zinc, Naprosyn, cholecalciferol, Flomax, melatonin, Aricept. Vitamin C, Celexa. ALLERGIES: NONE. FAMILY HISTORY: No history of heart disease or strokes in the family. SOCIAL HISTORY: Previous history of smoking. No current smoking or alcohol intake. REVIEW OF SYSTEMS: ENT: Diminished hearing. Diminished vision. CARDIOVASCULAR SYSTEM: No angina, palpitations. RESPIRATORY SYSTEM: No cough, hemoptysis. GI: No nausea, vomiting. : As mentioned earlier. NERVOUS SYSTEM: As mentioned earlier. ALLERGY/IMMUNOLOGY: No asthma, hayfever. MUSCULOSKELETAL: As mentioned earlier. HEMATOLOGY/ONCOLOGY: No history of anemia. ENDOCRINE: No history of diabetes, hypothyroidism. CONSTITUTIONAL: As mentioned earlier. DERMATOLOGY: Negative. RHEUMATOLOGY: Negative. PSYCHIATRY: As mentioned earlier. PHYSICAL EXAMINATION: Patient alert and oriented x3. Pulse 69, blood pressure 128/62, respirations 17, temperature 97.6, pulse ox 97% on room air. HEENT: Conjunctivae normal. Oral mucosa moist. NECK: No jugular venous distention. No carotid bruit. No lymph node enlargement. CARDIOVASCULAR SYSTEM: S1, S2 muffled. No S3. No S4. RESPIRATORY SYSTEM: Breath sounds diminished at the bases. No rhonchi. No crackles. ABDOMEN: Soft, non-tender. No mass palpable. LEGS: No edema. No swelling. NERVOUS SYSTEM: Higher functions as mentioned earlier. Moves all 4 limbs. Mild diffuse weakness.tone is increased. cog wheel rigidity LYMPHATICS: No lymph node palpable in neck, axillae or groin. SKIN: No ulcer, rash, bleeding. JOINTS: No active deforming arthropathy. LABS: Labs at this time show WBC 6.5, hemoglobin 11.5. Sodium 132. LDH is 625. UA noted. ASSESSMENT: 1. Acute urinary tract infection with possible sepsis, possibly related to indwelling Barnard catheter, present on admission. 2. History of multiple falls. possible parkinsons 3. Severe gait dysfunction. 4. Elevated D-dimer without any evidence of any pulmonary embolism or deep vein thrombosis. 5. Possible bibasilar infiltrate and pneumonia, possibly Gram-negative. 6. Hyponatremia. 7. Anemia, normocytic anemia of chronic disease. 8. History of dementia. 9. History of degenerative joint disease. 10.History of prostate disorder. 11.Chronic Barnard catheter. 12.Urogenital implants. 13.History of depression. 14.Remote history of nicotine dependence. RECOMMENDATIONS AND DISCUSSION: In this 89-year-old gentleman who presented with multiple complex medical issues, we will monitor the patient closely, continue the current medications, continue symptomatic treatment. Otherwise, I would recommend continuing the IV antibiotics and DVT prophylaxis. Symptomatic treatment. PT/OT evaluation. Obtain the cultures. I would also explore the possibility of ECF rehab. Home medication will be continued. Medication conciliation will be done. Prognosis guarded because of multiple complex medical issues. Further recommendations to follow. MMODL / IJN: [id number] / JORGE
[2020-07-22 16:15] LABS: Ferritin 193.3 ng/mL (22.0-322.0)
--- NOTE | 2020-07-22 18:36 | P.CNNES ---
History of Present Illness Consult date: 07/22/20 Requesting physician: Enrique Rush Reason for Consult: Weakness, possible Parkinson's disease History of Present Illness: Patient is a 89-year-old male came to the hospital yesterday at 11:48 PM after sustaining a fall with laceration over the left eye. Patient has been feeling weak over the last few days, multiple hospitalizations. Patient does not know why he came to the hospital. Not able to provide any history. Neurology was consulted for generalized weakness and rule out Parkinson's disease. Vital signs on arrival showed blood pressure 152/70, pulse rate 72, temperature 101.4. Chest x-ray showed possible early or residual pneumonia at the right lung base. Clinical correlation is necessary. Cardiomegaly. Elevation of the right hemidiaphragm. Pelvic x-ray showed coarse osteoarthritis changes of the hip joints. No acute fracture or dislocation. CT head showed age-related changes. Small vessel disease, no acute process. CT of the cervical spine showed fracture of the medial left clavicle. Similar findings was reported on her report from previous study of 06/14/2020. Advanced degenerative disc disease of the cervical spine. No acute injury of the cervical spine. EKG shows normal sinus rhythm. CT of the chest shows negative for acute pulmonary embolism. Minimal infiltrate in the-dependent lung bases most likely compressive atelectasis. Patient's blood test shows him to be C6 0.5 hemoglobin 11.5 platelets 325. PT/PTT normal. Sodium 132 potassium 4.9, normal renal functions. Hepatic panel is normal. CRP normal. UA shows small amount of leukocyte Estrace, 23 WBCs. Garvin virus PCR negative. Influenza screen negative. Patient has been diagnosed with acute urinary tract infection with possible sepsis, possibly related to indwelling Perez catheter. Patient has severe gait dysfunction, possible basilar infiltrate and pneumonia. Patient also has reported history of dementia. History of depression, nicotine dependence. Review of Systems Patient denies headache. Patient not able to provide any history states "I'm lost". ROS unobtainable: due to mental status Past Medical History Past Medical History: Dementia, Osteoarthritis (OA), Prostate Disorder Additional Past Medical History / Comment(s): Falls, chronic perez History of Any Multi-Drug Resistant Organisms: None Reported Additional Past Surgical History / Comment(s): urogenital implants Past Anesthesia/Blood Transfusion Reactions: No Reported Reaction Past Psychological History: Depression Smoking Status: Former smoker Past Alcohol Use History: None Reported Past Drug Use History: None Reported Medications and Allergies Home Medications Medication Instructions Recorded Confirmed Type Citalopram Hydrobromide [CeleXA] 20 mg PO DAILY 06/14/20 07/22/20 History Donepezil [Aricept] 10 mg PO DAILY 06/14/20 07/22/20 History Naproxen Sodium [Aleve] 220 mg PO DAILY PRN 06/14/20 07/22/20 History Tamsulosin HCl [Flomax] 0.4 mg PO BID 06/14/20 07/22/20 History Ascorbic Acid [Vitamin C] 500 mg PO BID 07/22/20 07/22/20 History Cholecalciferol [Vitamin D3 (25 2,000 unit PO DAILY 07/22/20 07/22/20 History Mcg = 1000 Iu)] Melatonin 3 mg PO HS 07/22/20 07/22/20 History Zinc 50 mg PO DAILY 07/22/20 07/22/20 History Allergies Allergy/AdvReac Type Severity Reaction Status Date / Time No Known Allergies Allergy Verified 07/22/20 07:54 Physical Examination - Vital Signs Vital Signs: Vital Signs Temp Pulse Pulse Resp BP BP Pulse Ox 07/22/20 13:49 97.6 F 69 17 128/62 97 07/22/20 11:25 68 07/22/20 11:16 72 07/22/20 08:00 15 07/22/20 07:55 98.1 F 58 L 16 103/49 95 07/22/20 07:45 62 07/22/20 07:38 64 07/22/20 03:09 18 07/22/20 03:03 98.5 F 60 18 106/61 97 07/22/20 02:05 98.9 F 07/21/20 23:51 101.4 F H 72 18 152/70 98 Intake and Output 07/22/20 07/22/20 07/22/20 06:59 14:59 22:59 Output Total 350 600 Balance -350 -600 Output: Urine 350 600 Other: Voiding Method Indwelling Catheter Indwelling Catheter Weight 66.5 kg On examination patient is an elderly male, laying in the bed, appears somewhat in mild distress, coughing. Patient's skin appears dry. There is no obvious bruit, S1 and S2 audible. No peripheral edema. Patient has some c ongestion of the chest. Abdomen is soft. On neurological examination, patient does not know where he is at, what month or what year is it. He could not tell name of the current president. He knows his name, and states is 81 years of age. Speech and language functions are normal. He speaks with low volume. Her dysarthria. Attention, concentration and fund of knowledge is limited. On cranial nerve examination his pupils are very small, not clearly reacting. Gaze is midline. Patient did not cooperate for checking off his extraocular muscles. He would keep his eyes closed. Has to manually open his eyelids to check his pupils. Face is symmetric. Tongue protrudes to the midline. Hearing appears slightly decreased. Patient did not open his mouth to check his palate 4 sensations. On muscle strength testing there is no pronator drift and the strength is normal in both upper limbs. In the lower limbs his right leg is normal distally and proximally. He has a left foot drop arm negative. Patient's left hip flexion appears normal. Reflexes are diminished and plantars are flat. Sensory touch is equal. No ataxia for [id number] testing. He has mild tremors at rest. Tone is moderately increased on the right, moderate to severely on the left. She appears obviously bradykinetic. Results - Laboratory Findings CBC and BMP: 07/22/20 00:46 07/22/20 00:46 Abnormal Lab Findings: Abnormal Labs 07/22/20 07/22/20 07/22/20 00:46 00:46 00:46 RBC 4.00 L Hgb 11.5 L Hct 36.0 L Lymphocytes # 0.7 L D-Dimer 5.17 H Sodium 132 L Lactate Dehydrogenase 625 H Albumin 3.2 L Urine Protein Ur Leukocyte Esterase Urine RBC Urine WBC Uric Acid Crystals Hyaline Casts Urine Mucus 07/22/20 02:05 RBC Hgb Hct Lymphocytes # D-Dimer Sodium Lactate Dehydrogenase Albumin Urine Protein Trace H Ur Leukocyte Esterase Small H Urine RBC 6 H Urine WBC 23 H Uric Acid Crystals Rare H Hyaline Casts 6 H Urine Mucus Rare H Assessment and Plan Assessment: * 89-year-old male came with a fall, also has gait imbalance. Examination reveals moderate rigidity, bradykinesia and mild tremors at rest. Parkinson's is definitely a possibility. Patient does not take any medication that may produce extrapyramidal side effects. Patient also has mild encephalopathy, may be contributing to parkinsonian features. * Left foot drop, uncertain new or old finding. Uncertain if due to compression of the peroneal nerve at fibular head, or radicular in nature. Patient's fall likely due to left foot drop, on top of parkinsonism. * Dementia * Acute UTI * Degenerative joint disease Plan: * Trial of Sinemet 25/100, one tablet twice a day. * B12, folate * EMG and nerve conduction study of left lower extremity as outpatient for left footdrop. * PT and OT.
[2020-07-22] MEDS: ASCORBIC ACID 500 MG TAB PO SCH (21:02)
[2020-07-22] MEDS: CARBIDOPA-LEVODOPA 25-100 MG 1 EACH TAB PO SCH (21:02)
[2020-07-22] MEDS: MELATONIN 3 MG TABLET PO SCH (21:02)
[2020-07-22] MEDS: TAMSULOSIN 0.4 MG CAP.ER.24H PO SCH (21:02)
[2020-07-23] MEDS: SODIUM CHLORIDE 0.9% 1,000 ML IV SCH ×3 (00:42→22:04)
[2020-07-23] MEDS: AZITHROMYCIN 500 MG TAB PO SCH ×2 (02:01→21:58)
[2020-07-23 07:15] LABS: Basophils # (A) 0.1 k/uL (0-0.2); Basophils % (A) 1 %; Eosinophils % (A) 0 %; HCT 35.5 % (39.0-53.0); HGB 11.7 gm/dL (13.0-17.5); Lymphocytes # (A) 0.9 k/uL (1.0-4.8); Lymphocytes % (A) 15 %; MCH 29.4 pg (25.0-35.0); MCHC 32.9 g/dL (31.0-37.0); MCV 89.2 fL (80.0-100.0); Mean Platelet Volume 6.6; Monocytes # (A) 0.4 k/uL (0-1.0); Monocytes % (A) 7 %; Neutrophils # (A) 4.3 k/uL (1.3-7.7); Neutrophils % (A) 74 %; Platelet Count 286 k/uL (150-450); RBC 3.97 m/uL (4.30-5.90); RDW 14.6 % (11.5-15.5); WBC 5.8 k/uL (3.8-10.6)
[2020-07-23] MEDS: IPRATROPIUM-ALBUTEROL 3 ML NEB INHALATION PRN (07:44)
[2020-07-23] MEDS: ZINC SULFATE 220 MG CAP PO SCH (08:41)
[2020-07-23] MEDS: TAMSULOSIN 0.4 MG CAP.ER.24H PO SCH ×2 (08:41→21:58)
[2020-07-23] MEDS: CHOLECALCIFEROL 1,000 UNIT TAB PO SCH (08:41)
[2020-07-23] MEDS: ENOXAPARIN 40 MG/0.4 ML SYRINGE SQ SCH (08:41)
[2020-07-23] MEDS: CITALOPRAM HYDROBROMIDE 20 MG TAB PO SCH (08:41)
[2020-07-23] MEDS: DONEPEZIL 10 MG TAB PO SCH (08:41)
[2020-07-23] MEDS: ASCORBIC ACID 500 MG TAB PO SCH ×2 (08:41→21:58)
[2020-07-23] MEDS: CARBIDOPA-LEVODOPA 25-100 MG 1 EACH TAB PO SCH ×2 (08:41→21:58)
--- NOTE | 2020-07-23 09:49 | XR ---
EXAMINATION TYPE: XR chest 1V DATE OF EXAM: 07/23/2020 COMPARISON: 07/22/2020 INDICATION: Pneumonia TECHNIQUE: Single frontal view of the chest is obtained. FINDINGS: The heart size is normal. The pulmonary vasculature is normal. Mild infiltrate is at the right base. There could be some chronic eventration of the right diaphragm IMPRESSION: 1. Suggestion of some mild atelectatic type changes at the right lung base. Findings are improving fr om comparison.
[2020-07-23] MEDS: FOLIC ACID 1 MG TAB PO SCH (13:15)
[2020-07-23] MEDS: THIAMINE 100 MG TAB PO SCH (13:15)
[2020-07-23] MEDS: MULTIVITAMINS, THERA 1 EACH TAB PO SCH (13:15)
--- NOTE | 2020-07-23 13:54 | P.PN ---
Subjective Progress Note Date: 07/23/20 Patient was seen for a follow-up. Patient is much more alert and awake. In no distress. Patient offers no complaints. He is laying comfortably in the bed. Patient does not recall having any foot problem on the left side. He states that he did have knee surgery on the left. Objective - Vital Signs Vital signs: Vital Signs Temp 100 F H 07/23/20 07:21 Pulse 95 07/23/20 08:00 Resp 17 07/23/20 08:00 BP 153/67 07/23/20 07:21 Pulse Ox 91 L 07/23/20 07:21 Intake & Output 07/22/20 07/23/20 07/23/20 18:59 06:59 18:59 Output Total 600 1800 Balance -600 -1800 Output: Urine 600 1800 Other: Voiding Method Indwelling Catheter Indwelling Catheter Indwelling Catheter # Bowel Movements 1 1 - Exam On examination patient is alert and awake. Patient states is July and the year is 2001. He states Mr. Dunaway is the president. He states he is in [facility]. Speech and language functions are normal. No aphasia or dysarthria. On cranial nerve examination pupils are round and reacting, visual santos revealed left homonymous hemianopia. Face is symmetric and tongue protrudes the midline. Palatal elevation normal. On muscle strength testing patient has left pronation but no drift. The strength appears normal in the arms and legs except left foot which is weak at ankle dorsiflexion about 2, plantar flexion also weak 4+. Sensations are equal. No ataxia for [id number]. Tone is decreased in the left foot. Plantars are flat. Reflexes symmetric. Tone is increase mild to moderately in the arms. No significant resting tremors noted. - Labs CBC & Chem 7: 07/23/20 06:54 07/22/20 00:46 Labs: Abnormal Lab Results - Last 24 Hours (Table) 07/23/20 Range/Units 06:54 RBC 3.97 L (4.30-5.90) m/uL Hgb 11.7 L (13.0-17.5) gm/dL Hct 35.5 L (39.0-53.0) % Lymphocytes # 0.9 L (1.0-4.8) k/uL Microbiology - Last 24 Hours (Table) 07/22/20 02:05 Urine Culture - Final Urine,Clean Catch 07/22/20 00:46 Blood Culture - Preliminary Blood No Growth after 24 hours 07/22/20 00:46 Blood Culture - Preliminary Blood No Growth after 24 hours Assessment and Plan Assessment: * Parkinsonian symptoms, possible Parkinson's disease. * Left foot drop, uncertain new or old finding. 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 Rule out subacute CVA. * Dementia * Acute UTI * Degenerative joint disease Plan: * Continue Sinemet 25/100, one tablet twice a day. * MRI of brain, rule out CVA. * Carotid Doppler * B12, folate * EMG and nerve conduction study of left lower extremity as outpatient for left footdrop (especially if MRI brain comes negative). * PT and OT.
--- NOTE | 2020-07-23 15:09 | US ---
EXAMINATION TYPE: US carotid duplex BILAT DATE OF EXAM: 07/23/2020 COMPARISON: NONE CLINICAL HISTORY: Left-sided weakness, rule out CVA. Left sided weakness EXAM MEASUREMENTS: RIGHT: Peak Systolic Velocity (PSV) cm/sec ----- Right CCA: 67.3 ----- Right ICA: 100.9 ----- Right ECA: 138.8 ICA/CCA ratio: 44.8 RIGHT: End Diastole cm/sec ----- Right CCA: 12.3 ----- Right ICA: 23.9 ----- Right ECA: 5.6 LEFT: Peak Systolic Velocity (PSV) cm/sec ----- Left CCA: 64.0 ----- Left ICA: 132.4 ----- Left ECA: 40.3 ICA/CCA ratio: 2.1 LEFT: End Diastole cm/sec ----- Left CCA: 12.0 ----- Left ICA: 24.4 ----- Left ECA: 0.0 VERTEBRALS (direction of flow): Right Vertebral: Antegrade Left Vertebral: Antegrade Rhythm: Arrhythmia Bilateral intimal thickening, plaque bilateral bulb and proximal ICA, elevated velocities: right prox imal ECA and left mid ICA, left ICA/CCA ratio 2.1 There is large atheromatous plaque with posterior shadowing in the right carotid bulb. Narrowing at t he external carotid artery origin is evident with atheromatous plaquing. No elevated velocity is evid ent. There is atheromatous plaquing within the left carotid bifurcation. Heart plaquing is within the hunter tid bulb. IMPRESSION: 1. Atheromatous plaquing present at the bilateral carotid bifurcations. 2. Moderate narrowing between 50 and 69% of the left internal carotid artery origin based on velocity Criteria for Assigning % of Stenosis / Diameter reduction (Estimation based on the indirect measurements of the internal carotid artery velocities (ICA PSV). 1. Normal (no stenosis)=ICA PSV < 125 cm/s: ratio < 2.0: ICA EDV<40 cm/s. 2. Less than 50% stenosis=ICA PSV < 125 cm/s: ratio < 2.0: ICA EDV<40 cm/s. 3. 50 to 69% stenosis=ICA PSV of 125 to 230 cm/s: ration 2.0 ? 4.0: ICA EDV 40-100 cm/s. 4. Greater than 70% stenosis to near occlusion= ICA PSV > 230 cm/s: ratio > 4.0: ICA EDV > 100 cm/s. 5. Near occlusion= ICA PSV velocities may be low or undetectable: variable ratio and ICA EDV. 6. Total occlusion=unable to detect flow.
[2020-07-23 17:33] LABS: African American GFR (CKD) 88.1 (60.0-200.0); Anion Gap 8.2 mmol/L (4.00-12.00); BUN/Creat Ratio 17.78 Ratio (12.00-20.00); Carbon Dioxide 24.8 mmol/L (21.6-31.8); Potassium 4.2 mmol/L (3.5-5.5)
[2020-07-23] MEDS: ASPIRIN 81 MG PO SCH (17:53)
--- NOTE | 2020-07-23 17:56 | PN ---
PROGRESS NOTE DATE OF SERVICE: 07/23/2020 This 89-year-old gentleman who was admitted with significant gait dysfunction and fall had features of acute UTI. Neurology has seen the patient and has recommended a trial of Sinemet twice daily. The patient today is feeling slightly better. A carotid Doppler was also done to complete the workup, which I reviewed personally. It showed moderate narrowing of 50% to 69% of the left ICA. Atheromatous plaques were also noted. The patient is being closely monitored at this time. Past medical history reviewed. REVIEW OF SYSTEMS: CARDIOVASCULAR SYSTEM: No angina, palpitations. RESPIRATORY SYSTEM: As mentioned earlier. GI: As mentioned earlier. : No dysuria or retention. NERVOUS SYSTEM: No numbness, weakness. CURRENT MEDICATIONS: Reviewed. They include Tylenol, [place], DuoNeb, Xanax, vitamin C, Zithromax, Sinemet, Aricept, Lovenox and melatonin. PHYSICAL EXAMINATION: Patient is alert, oriented x3. Pulse 67, blood pressure 120/70, respiration 18, temperature 98.4, pulse ox 98% on room air. HEENT: Conjunctivae normal. NECK: No jugular venous distention. CARDIOVASCULAR SYSTEM: S1, S2 muffled. RESPIRATORY SYSTEM: Breath sounds diminished at the bases. A few scattered rhonchi and crackles. ABDOMEN: Soft, non-tender. LEGS: No edema. No swelling. NERVOUS SYSTEM: No focal deficit. LABS: D-dimer is 5.17. WBC 11.7. UA noted. COVID-19 is negative. Influenza is negative. ASSESSMENT: 1. Acute urinary tract infection with possible sepsis, present on admission, possibly related to indwelling Barnard catheter. 2. Change in mental status, metabolic encephalopathy. 3. Multiple falls with possible acute Parkinson's disorder. 4. Gait dysfunction. 5. Elevated D-dimer without any evidence of pulmonary embolism or deep vein thrombosis. 6. Possible bibasilar infiltrate pneumonia, possibly Gram-negative. 7. COVID-19 ruled out. 8. Hyponatremia. 9. Anemia, normocytic anemia of chronic disease. 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 11.History of dementia. 12.Degenerative joint disease. 13.History of prostate disorder. 14.Chronic Barnard catheter. 15.Urogenital implants. 16.History of depression. 17.Remote history of nicotine dependence. RECOMMENDATIONS AND DISCUSSION: In this 89-year-old gentleman who presented with multiple complex medical issues, we will monitor the patient closely, continue the current medications, continue symptomatic treatment. I would also recommend vascular surgery consultation. Add aspirin to the current regimen. Continue the antibiotics. Guarded prognosis. Further recommendations to follow. JALEESA / LAURAN: [id number] /
[2020-07-23 20:57] LABS: Calcium 8.2 mg/dL (8.7-10.3)
[2020-07-23 21:07] LABS: Folate, Serum >24.0 ng/mL
[2020-07-23] MEDS: ACETAMINOPHEN TAB 325 MG TAB PO PRN (21:57)
[2020-07-23] MEDS: MELATONIN 3 MG TABLET PO SCH (21:58)
[2020-07-24] MEDS: SODIUM CHLORIDE 0.9% 1,000 ML IV SCH ×3 (04:46→21:03)
[2020-07-24] MEDS: ACETAMINOPHEN TAB 325 MG TAB PO PRN ×2 (05:42→19:50)
[2020-07-24] MEDS: ALPRAZolam 0.25 MG TAB PO PRN (05:42)
[2020-07-24 07:01] LABS: Basophils % (A) 1 %; Eosinophils % (A) 0 %; HCT 32.5 % (39.0-53.0); HGB 10.5 gm/dL (13.0-17.5); Lymphocytes # (A) 0.6 k/uL (1.0-4.8); Lymphocytes % (A) 12 %; MCH 28.4 pg (25.0-35.0); MCHC 32.4 g/dL (31.0-37.0); MCV 87.5 fL (80.0-100.0); Mean Platelet Volume 6.8; Monocytes # (A) 0.3 k/uL (0-1.0); Monocytes % (A) 6 %; Neutrophils # (A) 3.9 k/uL (1.3-7.7); Neutrophils % (A) 80 %; Platelet Count 276 k/uL (150-450); RBC 3.71 m/uL (4.30-5.90); RDW 14.8 % (11.5-15.5); WBC 4.9 k/uL (3.8-10.6)
--- NOTE | 2020-07-24 08:46 | P.GSCN ---
History of Present Illness Consult date: 07/24/20 History of present illness: The patient is an 89-year-old male who came to the hospital after a fall. Due to his dementia and confusion the majority of the information is collected via the patient's chart. He thinks he has been feeling weak. It seems like he is more generalized in his weakness as he states he is unable to get up out of bed because he has no strength. No unilateral signs. Review of Systems ROS unobtainable: due to mental status Past Medical History Past Medical History: Dementia, Osteoarthritis (OA), Prostate Disorder Additional Past Medical History / Comment(s): Falls, chronic perez History of Any Multi-Drug Resistant Organisms: None Reported Additional Past Surgical History / Comment(s): urogenital implants Past Anesthesia/Blood Transfusion Reactions: No Reported Reaction Past Psychological History: Depression Smoking Status: Former smoker Past Alcohol Use History: None Reported Past Drug Use History: None Reported Medications and Allergies Home Medications Medication Instructions Recorded Confirmed Type Citalopram Hydrobromide [CeleXA] 20 mg PO DAILY 06/14/20 07/22/20 History Donepezil [Aricept] 10 mg PO DAILY 06/14/20 07/22/20 History Naproxen Sodium [Aleve] 220 mg PO DAILY PRN 06/14/20 07/22/20 History Tamsulosin HCl [Flomax] 0.4 mg PO BID 06/14/20 07/22/20 History Ascorbic Acid [Vitamin C] 500 mg PO BID 07/22/20 07/22/20 History Cholecalciferol [Vitamin D3 (25 2,000 unit PO DAILY 07/22/20 07/22/20 History Mcg = 1000 Iu)] Melatonin 3 mg PO HS 07/22/20 07/22/20 History Zinc 50 mg PO DAILY 07/22/20 07/22/20 History Allergies Allergy/AdvReac Type Severity Reaction Status Date / Time No Known Allergies Allergy Verified 07/22/20 07:54 Surgical - Exam Vital Signs Temp Pulse Resp BP Pulse Ox 101.4 F H 72 18 152/70 98 07/21/20 23:51 07/21/20 23:51 07/21/20 23:51 07/21/20 23:51 07/21/20 23:51 Gen. is a pleasant and cooperative although lethargic and slightly confused male in no acute distress. HEENT is normocephalic atraumatic extraocular motion intact heart appears regular at this time. Lungs are clear bilaterally. Abdomen is soft. Nontender nondistended. Extremity show no clubbing, cyanosis or edema. Normal motor sensory of his bilateral upper extremities. Bilateral lower extremity are warm and dry. No wounds noted. Results Bilateral carotid Doppler noted. Left internal carotid artery with peak systolic velocity of 132. This correlates with 50-69% stenosis, closer to 50% - Labs 07/24/20 06:37 07/23/20 06:54 Abnormal Lab Results - Last 24 Hours (Table) 07/23/20 07/24/20 Range/Units 06:54 06:37 RBC 3.71 L (4.30-5.90) m/uL Hgb 10.5 L (13.0-17.5) gm/dL Hct 32.5 L (39.0-53.0) % Lymphocytes # 0.6 L (1.0-4.8) k/uL Calcium 8.2 L (8.7-10.3) mg/dL Microbiology - Last 24 Hours (Table) 07/22/20 00:46 Blood Culture - Preliminary Blood No Growth after 48 hours 07/22/20 00:46 Blood Culture - Preliminary Blood No Growth after 48 hours 07/22/20 02:05 Urine Culture - Final Urine,Clean Catch Diabetes panel 07/23/20 Range/Units 06:54 Sodium 139 (135-145) mmol/L Potassium 4.2 (3.5-5.5) mmol/L Chloride 106 (96-109) mmol/L Carbon Dioxide 24.8 (21.6-31.8) mmol/L BUN 16.0 (9.0-27.0) mg/dL Creatinine 0.9 (0.6-1.5) mg/dL Glucose 79 (70-110) mg/dL Calcium 8.2 L (8.7-10.3) mg/dL Calcium panel 07/23/20 Range/Units 06:54 Calcium 8.2 L (8.7-10.3) mg/dL Pituitary panel 07/23/20 Range/Units 06:54 Sodium 139 (135-145) mmol/L Potassium 4.2 (3.5-5.5) mmol/L Chloride 106 (96-109) mmol/L Carbon Dioxide 24.8 (21.6-31.8) mmol/L BUN 16.0 (9.0-27.0) mg/dL Creatinine 0.9 (0.6-1.5) mg/dL Glucose 79 (70-110) mg/dL Calcium 8.2 L (8.7-10.3) mg/dL Adrenal panel 07/23/20 Range/Units 06:54 Sodium 139 (135-145) mmol/L Potassium 4.2 (3.5-5.5) mmol/L Chloride 106 (96-109) mmol/L Carbon Dioxide 24.8 (21.6-31.8) mmol/L BUN 16.0 (9.0-27.0) mg/dL Creatinine 0.9 (0.6-1.5) mg/dL Glucose 79 (70-110) mg/dL Calcium 8.2 L (8.7-10.3) mg/dL Assessment and Plan Assessment: Left internal carotid artery stenosis, approximately 50% Generalized weakness Dementia Plan: At this time given the patient's comorbidities and age along with the relative 50% narrowing, no further revascularization recommended. Continue medical therapy. Continue evaluation per neurology and medical teams.
[2020-07-24] MEDS: CITALOPRAM HYDROBROMIDE 20 MG TAB PO SCH (08:50)
[2020-07-24] MEDS: ASPIRIN 81 MG PO SCH (08:50)
[2020-07-24] MEDS: TAMSULOSIN 0.4 MG CAP.ER.24H PO SCH ×2 (08:50→21:02)
[2020-07-24] MEDS: CARBIDOPA-LEVODOPA 25-100 MG 1 EACH TAB PO SCH ×2 (08:50→21:02)
[2020-07-24] MEDS: ENOXAPARIN 40 MG/0.4 ML SYRINGE SQ SCH (08:50)
[2020-07-24] MEDS: ZINC SULFATE 220 MG CAP PO SCH (08:50)
[2020-07-24] MEDS: DONEPEZIL 10 MG TAB PO SCH (08:51)
[2020-07-24] MEDS: ASCORBIC ACID 500 MG TAB PO SCH ×2 (08:51→21:01)
[2020-07-24] MEDS: CHOLECALCIFEROL 1,000 UNIT TAB PO SCH (08:51)
[2020-07-24 09:45] LABS: African American GFR (CKD) 92.4 (60.0-200.0); Anion Gap 7.3 mmol/L (4.00-12.00); BUN/Creat Ratio 18.75 Ratio (12.00-20.00); Calcium 7.4 mg/dL (8.7-10.3); Carbon Dioxide 23.7 mmol/L (21.6-31.8); Non-African American GFR(CKD) 79.8 (60.0-200.0); Potassium 3.6 mmol/L (3.5-5.5)
[2020-07-24] MEDS: FOLIC ACID 1 MG TAB PO SCH (11:15)
[2020-07-24] MEDS: MULTIVITAMINS, THERA 1 EACH TAB PO SCH (11:15)
[2020-07-24] MEDS: THIAMINE 100 MG TAB PO SCH (11:15)
[2020-07-24] MEDS ORDERED: MECLIZINE 12.5 MG TAB PO PRN (12:37)
--- NOTE | 2020-07-24 13:25 | P.PN ---
Subjective Progress Note Date: 07/24/20 Patient was seen for a follow-up. Patient appears to be slightly more confused, delirious, laying diagonally in the bed. Denies headache, offers no new complaints. Objective - Vital Signs Vital signs: Vital Signs Temp 100.2 F H 07/24/20 07:45 Pulse 71 07/24/20 07:46 Resp 18 07/24/20 07:46 BP 101/56 07/24/20 07:45 Pulse Ox 94 L 07/24/20 07:45 Intake & Output 07/23/20 07/24/20 07/24/20 18:59 06:59 18:59 Intake Total 1050 400 Output Total 475 475 Balance 1050 -475 -75 Intake: Intake, IV Titration 700 Amount Sodium Chloride 0.9% 1, 700 000 ml @ 100 mls/hr IV . Q10H [facility] Rx#:[id number] Oral 350 400 Output: Urine 475 475 Other: Voiding Method Indwelling Catheter Indwelling Catheter Indwelling Catheter - Exam 07/24/2020: Patient appears slightly more encephalopathic. Awake and alert. Appears somewhat uncomfortable, wants to have a bowel movement. Patient did not elect to answer to questions. Patient does have left homonymous hemianopia it appears. Left arm and leg is slightly weaker as compared to the right. Exam very limited due to patient's mentation and noncooperation. Tone is mild to moderately increased. Patient appears bradykinetic. 07/23/2020: On examination patient is alert and awake. Patient states is July and the year is 2001. He states Mr. Dunaway is the president. He states he is in [facility]. Speech and language functions are normal. No aphasia or dysarthria. On cranial nerve examination pupils are round and reacting, visual santos revealed left homonymous hemianopia. Face is symmetric and tongue protrudes the midline. Palatal elevation normal. On muscle strength testing patient has left pronation but no drift. The strength appears normal in the arms and legs except left foot which is weak at ankle dorsiflexion about 2, plantar flexion also weak 4+. Sensations are equal. No ataxia for [id number]. Tone is decreased in the left foot. Plantars are flat. Reflexes symmetric. Tone is increase mild to moderately in the arms. No significant resting tremors noted. - Labs CBC & Chem 7: 07/24/20 06:37 07/24/20 06:37 Labs: Abnormal Lab Results - Last 24 Hours (Table) 07/23/20 07/24/20 07/24/20 Range/Units 06:54 06:37 06:37 RBC 3.71 L (4.30-5.90) m/uL Hgb 10.5 L (13.0-17.5) gm/dL Hct 32.5 L (39.0-53.0) % Lymphocytes # 0.6 L (1.0-4.8) k/uL Calcium 8.2 L 7.4 L (8.7-10.3) mg/dL Microbiology - Last 24 Hours (Table) 07/22/20 00:46 Blood Culture - Preliminary Blood No Growth after 48 hours 07/22/20 00:46 Blood Culture - Preliminary Blood No Growth after 48 hours 07/22/20 02:05 Urine Culture - Final Urine,Clean Catch Assessment and Plan Assessment: * Parkinsonian symptoms, possible Parkinson's disease. * Mild left-sided weakness with left homonymous hemianopia. Rule out subacute CVA. * Left ICA stenosis 50-69%, likely asymptomatic, as it is on the ipsilateral side of symptoms. * Dementia * Acute UTI * Anemia * Degenerative joint disease Plan: * Continue Sinemet 25/100, one tablet twice a day. * Await MRI of brain, rule out CVA. If patient cannot have MRI, then may consider repeating computed tomography scan of the head. * Carotid Doppler showed atheromatous plaquing present bilateral carotid bifurcations. Moderate narrowing between 50-69% of the left ICA origin based on the velocity. Antegrade flow in both vertebral arteries. Vascular surgery input appreciated. No surgical intervention needed. * Patient started on aspirin 81 mg daily. Fasting lipid panel and hemoglobin A1c ordered. * B12 272, which is low, we'll start replacement, folate >24 * PT and OT.
[2020-07-24] MEDS: CYANOCOBALAMIN 1,000 MCG/ML 1 ML VIAL IM SCH (15:22)
--- NOTE | 2020-07-24 17:45 | PN ---
PROGRESS NOTE DATE OF SERVICE: 07/24/2020 INTERVAL HISTORY: This is an 89-year-old gentleman admitted with significant gait dysfunction and also had possible acute UTI with sepsis possibly related to indwelling Barnard catheter. The patient also had change in mental status. Patient also history of multiple falls also. The patient remains confused. Patient also found to have carotid stenosis during the workup. Patient also had features of acute Parkinson's. The patient appears to be responding to the therapeutic trial of Sinemet at this time. Dr. Barnard has seen the patient and recommended outpatient followup and medical treatment. No chest pain. No palpitations. PAST MEDICAL HISTORY: Reviewed. CURRENT MEDICATIONS: Reviewed include Tylenol, [place], Xanax, vitamin C, aspirin. Medications doses are reviewed. Sinemet dose reviewed. REVIEW OF SYSTEMS: Could not be taken as the patient is mildly confused. PHYSICAL EXAMINATION: The pulse is 107, blood pressure 150/80, respirations 16, temperature is 100.3, pulse ox 96% on room air. HEENT: Conjunctivae normal. Oral mucosa moist. NECK: No jugular venous distention. RESPIRATORY: Breath sounds diminished at the bases. A few scattered rhonchi and crackles. HEART: S1 and S2, muffled. ABDOMEN: Soft, no tenderness. EXTREMITIES: No edema, no swelling. NERVOUS: No focal deficits. LABS: COVID-19 negative. Influenza negative. WBC 4.2, hemoglobin 11.5. Cultures are negative. ASSESSMENT: 1. Acute urinary tract infection with possible sepsis present on admission possibly related to indwelling Barnard catheter. 2. Continued fever. 3. Change in mental status acute metabolic encephalopathy, multifactorial. 4. Multiple falls with possible acute Parkinson's disorder. 5. Gait dysfunction. 6. Elevated D-dimer without any evidence of acute pulmonary embolism or deep vein thrombosis. 7. Possible infiltrative pneumonia possibly gram-negative. 8. COVID-19 ruled out. 9. Hyponatremia. 10.Anemia, normocytic anemia of chronic disease. 11.Left internal carotid artery stenosis of 50-60%. 12.History of dementia. 13.Degenerative joint disease. 14.History of prostate disorder. 15.Chronic Barnard catheter. 16.Urogenital implant history. 17.History of depression. 18.Remote history of nicotine dependence. RECOMMENDATION AND DISCUSSION: Will recommend to continue the current medication, continue symptomatic treatment. Recommend consultation with Infectious Disease. Continue the antibiotics. Repeat cultures. Repeat x-ray. The patient is currently on Rocephin 2 g. COVID-19 test was negative. Prognosis guarded. Further recommendations to follow. MMODL / IJN: [id number] /
[2020-07-24] MEDS: MELATONIN 3 MG TABLET PO SCH (21:02)
[2020-07-25] MEDS: AZITHROMYCIN 500 MG TAB PO SCH (01:16)
[2020-07-25] MEDS: ACETAMINOPHEN TAB 325 MG TAB PO PRN ×2 (01:23→19:20)
[2020-07-25 06:25] LABS: Basophils % (A) 0 %; Eosinophils % (A) 0 %; HCT 37.5 % (39.0-53.0); HGB 12.3 gm/dL (13.0-17.5); Lymphocytes # (A) 0.9 k/uL (1.0-4.8); Lymphocytes % (A) 10 %; MCH 29.8 pg (25.0-35.0); MCHC 32.9 g/dL (31.0-37.0); MCV 90.6 fL (80.0-100.0); Mean Platelet Volume 7.1; Monocytes # (A) 0.4 k/uL (0-1.0); Monocytes % (A) 4 %; Neutrophils # (A) 7.4 k/uL (1.3-7.7); Neutrophils % (A) 83 %; Platelet Count 272 k/uL (150-450); RBC 4.14 m/uL (4.30-5.90); RDW 14.8 % (11.5-15.5); WBC 8.9 k/uL (3.8-10.6)
[2020-07-25] MEDS: SODIUM CHLORIDE 0.9% 1,000 ML IV SCH ×2 (09:00→20:09)
[2020-07-25] MEDS: ENOXAPARIN 40 MG/0.4 ML SYRINGE SQ SCH (09:03)
[2020-07-25] MEDS: TAMSULOSIN 0.4 MG CAP.ER.24H PO SCH ×2 (09:03→20:10)
[2020-07-25] MEDS: ASCORBIC ACID 500 MG TAB PO SCH ×2 (09:03→20:10)
[2020-07-25] MEDS: CHOLECALCIFEROL 1,000 UNIT TAB PO SCH (09:03)
[2020-07-25] MEDS: ASPIRIN 81 MG PO SCH (09:03)
[2020-07-25] MEDS: ZINC SULFATE 220 MG CAP PO SCH (09:03)
[2020-07-25] MEDS: CITALOPRAM HYDROBROMIDE 20 MG TAB PO SCH (09:03)
[2020-07-25] MEDS: DONEPEZIL 10 MG TAB PO SCH (09:03)
[2020-07-25] MEDS: CARBIDOPA-LEVODOPA 25-100 MG 1 EACH TAB PO SCH ×2 (09:03→20:09)
[2020-07-25 09:57] LABS: African American GFR (CKD) 88.1 (60.0-200.0); Anion Gap 10.1 mmol/L (4.00-12.00); BUN/Creat Ratio 18.89 Ratio (12.00-20.00); Calcium 7.7 mg/dL (8.7-10.3); Carbon Dioxide 21.9 mmol/L (21.6-31.8); Chol/HDL Ratio 4.38; LDL Cholesterol,Calculated 97.2 mg/dL (0.0-131.0); Potassium 4.1 mmol/L (3.5-5.5); VLDL Calculation 17.8 mg/dL (5.00-40.00)
[2020-07-25] MEDS: CYANOCOBALAMIN 1,000 MCG/ML 1 ML VIAL IM SCH (10:27)
[2020-07-25] MEDS: MULTIVITAMINS, THERA 1 EACH TAB PO SCH (12:12)
[2020-07-25] MEDS: THIAMINE 100 MG TAB PO SCH (12:12)
[2020-07-25] MEDS: FOLIC ACID 1 MG TAB PO SCH (12:12)
--- NOTE | 2020-07-25 15:51 | MR ---
EXAMINATION TYPE: MR brain wo con DATE OF EXAM: 07/25/2020 COMPARISON: None HISTORY: Confusion, CVA Multiplanar multiecho imaging of the brain was performed without contrast. There is diffuse cerebral cortical atrophy. There is no mass effect nor midline shift. There is no si gn of intracranial hemorrhage. Diffusion images show no sign of acute infarct. There is patchy abnormal increased signal in the periventricular white matter and levin-white matter j unction of both cerebral hemispheres on the T2 and FLAIR images. There is some enlargement of the ricky tricles. The brainstem is intact. There is no evidence of posterior fossa mass. Corpus callosum is in tact. Sella turcica is intact. IMPRESSION: Cerebral atrophy and chronic White matter changes probably due to small vessel ischemia. No evidence of an acute cortical infarct.
--- NOTE | 2020-07-25 16:18 | PN ---
PROGRESS NOTE DATE OF SERVICE: 07/25/2020 INTERVAL HISTORY: This is an 89-year-old gentleman who was admitted with acute UTI, had possibly sepsis from the UTI. The patient had some continued fever. Patient also had features of parkinsonism. Brain MRI has been requested. The cultures are negative so far. The white count is 8.9. Infectious Disease also being consulted. COVID-19 is negative at this time. PAST MEDICAL HISTORY: Reviewed. REVIEW OF SYSTEMS: Could not be taken. The patient is confused. CURRENT MEDICATIONS: Reviewed include Tylenol, [place], DuoNeb, Xanax, vitamin C, aspirin, Rocephin, Celexa, vitamin B23, folic acid. Doses are reviewed. PHYSICAL EXAM: GENERAL: Patient is conscious and confused. VITAL SIGNS: Pulse 92, blood pressure 137/60, respirations 17, temperature 99.4, T-max 101.9, pulse ox 92% on room air. HEENT: Conjunctivae normal. Oral mucosa moist. NECK: No jugular venous distention. No carotid bruits. No lymph node enlargement. RESPIRATORY: Breath sounds diminished at the bases. No rhonchi, no crackles. HEART: S1 and S2, muffled. ABDOMEN: Soft, no tenderness. No masses palpable. EXTREMITIES: No edema, no swelling. NERVOUS: Diffusely weak. Tone is increased. History of parkinsonism. LABS: WBC 8.2, hemoglobin 12.3. Other labs are noted. ASSESSMENT: 1. Acute urinary tract infection with possible sepsis present on admission possibly related to indwelling Barnard catheter. 2. Continued fever. 3. Change in mental status acute metabolic encephalopathy, multifactorial. 4. Multiple falls with possible acute Parkinson's disorder. 5. Gait dysfunction. 6. Elevated D-dimer without any evidence of acute pulmonary embolism or deep vein thrombosis. 7. Possible infiltrate with pneumonia, possibly gram-negative. 8. COVID-19 ruled out. 9. Hyponatremia. 10.Anemia, normocytic anemia of chronic disease. 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 12.History of dementia. 13.Degenerative joint disease. 14.History of prostate disorder. 15.Chronic Barnard catheter. 16.Urogenital implant history. 17.History of depression. 18.Remote history of nicotine dependence. RECOMMENDATION AND DISCUSSION: In this 89-year-old gentleman who presented with multiple complex medical issues, we will monitor the patient closely. Continue the current management and continue symptomatic treatment. I would recommend repeat chest x-ray. MRI has been noted and Neurology and Vascular Surgery has seen the patient. Infectious disease evaluation also has been requested. Overall prognosis is extremely guarded because of multiple complex medical issues. Further recommendations to follow. MMIFEANYIL / LAURAN: [id number] /
[2020-07-25 17:23] LABS: Appearance,Urine Cloudy (Clear); Bacteria,Urine Occasional /hpf; Bilirubin,Urine Negative (Negative); Blood,Urine Small (Negative); Color,Urine Yellow; Glucose,Urine (UA) Negative (Negative); Ketones,Urine 2+ (Negative); Leukocyte Esterase,Urine Moderate (Negative); Mucus,Urine Rare /hpf; Nitrite,Urine Negative (Negative); PH, Urine 5.5 (5.0-8.0); Protein,Urine 2+ (Negative); RBC,Urine 44 /hpf (0-5); Specific Gravity,Urine 1.021 (1.001-1.035); Squamous Epithelial Cell,Urine <1 /hpf (0-4); Urobilinogen,Urine <2.0 mg/dL (<2.0); WBC,Urine 54 /hpf (0-5)
--- NOTE | 2020-07-25 20:08 | XR ---
EXAMINATION TYPE: XR chest 1V portable DATE OF EXAM: 07/25/2020 COMPARISON: 07/23/2020 HISTORY: Pneumonia. Short of breath. TECHNIQUE: FINDINGS: There is some airspace infiltrate left lower lobe. There is no gross heart failure. Heart s ize is fairly normal. Bony thorax is intact. There is also some mild atelectasis right lung base. Int erposition of the hepatic flexure of the colon. IMPRESSION: There is some left lower lobe pneumonia increased compared to recent exam. No heart failu re seen. Mild atelectasis right lung base unchanged.
[2020-07-25] MEDS: MELATONIN 3 MG TABLET PO SCH (20:09)
--- NOTE | 2020-07-25 23:04 | P.CONS ---
History of Present Illness - Reason for Consult Consult date: 07/25/20 Sepsis Requesting physician: Enrique Rush - Chief Complaint Fever x few days - History of Present Illness Patient is 89-year-old male presenting to the ER as [facility] 4 days ago for evaluation of a fall and did sustain laceration over the left eye patient was feeling weak for the last few days before presentation to the hospital patient denies having any headache or URI symptoms denies having any chest pain or shortness of breath minimal cough no nausea no vomiting no abdominal pain or any diarrhea patient did have a fever of 101.42 for an height on admission to the hospital he did spike a fever of 102.8 degrees Fahrenheit yesterday that prompted this infectious disease consultation patient did have a extensive work-up done including CT angiogram of the chest was negative for PE minimal infiltrate at the dependent lung bases most likely compression atelectasis MRI of the brain was negative for any acute cortical infarct patient did have a normal white count and lymphopenia D-dimer was elevated procalcitonin was normal CRP was less than 5 mackey PCR x2 has been negative cultures are negative currently being treated with Rocephin and Zithromax. Review of Systems Positive points has been mentioned in HPI complete review could not be obtained because of his underlying mental status Past Medical History Past Medical History: Dementia, Osteoarthritis (OA), Prostate Disorder Additional Past Medical History / Comment(s): Falls, chronic perez History of Any Multi-Drug Resistant Organisms: None Reported Additional Past Surgical History / Comment(s): urogenital implants Past Anesthesia/Blood Transfusion Reactions: No Reported Reaction Past Psychological History: Depression Smoking Status: Former smoker Past Alcohol Use History: None Reported Past Drug Use History: None Reported Medications and Allergies Home Medications Medication Instructions Recorded Confirmed Type Citalopram Hydrobromide [CeleXA] 20 mg PO DAILY 06/14/20 07/22/20 History Donepezil [Aricept] 10 mg PO DAILY 06/14/20 07/22/20 History Naproxen Sodium [Aleve] 220 mg PO DAILY PRN 06/14/20 07/22/20 History Tamsulosin HCl [Flomax] 0.4 mg PO BID 06/14/20 07/22/20 History Ascorbic Acid [Vitamin C] 500 mg PO BID 07/22/20 07/22/20 History Cholecalciferol [Vitamin D3 (25 2,000 unit PO DAILY 07/22/20 07/22/20 History Mcg = 1000 Iu)] Melatonin 3 mg PO HS 07/22/20 07/22/20 History Zinc 50 mg PO DAILY 07/22/20 07/22/20 History Allergies Allergy/AdvReac Type Severity Reaction Status Date / Time No Known Allergies Allergy Verified 07/22/20 07:54 Physical Exam Vitals: Vital Signs Temp Pulse Resp BP Pulse Ox 07/25/20 21:18 98.5 F 07/25/20 20:12 100.8 F H 07/25/20 20:00 123 H 18 07/25/20 18:50 103.0 F H 123 H 18 128/89 94 L 07/25/20 14:00 99.4 F 92 17 137/68 92 L 07/25/20 08:59 98.4 F 07/25/20 07:40 101.9 F H 82 17 135/70 94 L 07/25/20 02:20 98.7 F 76 18 91/52 96 Intake and Output 07/25/20 07/25/20 07/26/20 14:59 22:59 06:59 Intake Total 400 Output Total 400 Balance 0 Intake: IV 400 Sodium Chloride 0.9% 1, 400 000 ml @ 50 mls/hr IV . Q20H [facility] Rx#:[id number] Output: Urine 400 Uretheral (Perez) 400 Other: Voiding Method Indwelling Catheter Indwelling Catheter GENERAL DESCRIPTION: An elderly male lying in bed, no distress. No tachypnea or accessory muscle of respiration use. HEENT: Shows Pallor , no scleral icterus. Oral mucous membrane is dry. No pha ryngeal erythema or thrush NECK: Trachea central, no thyromegaly. LUNGS: Unlabored breathing. Coarse breath sounds Bilaterally. No wheeze or crackle. HEART: S1, S2, regular rate and rhythm. No loud murmur ABDOMEN: Soft, no tenderness , guarding or rigidity, no organomegaly EXTREMITIES: No edema of feet. SKIN: No rash, no masses palpable. NEUROLOGICAL: The patient is awake, alert, oriented x2, mood and affect normal. Results CBC & Chem 7: 07/25/20 05:53 07/25/20 05:53 Labs: Abnormal Lab Results - Last 24 Hours (Table) 12/07/25/20 07/25/20 Range/Units 16:35 05:53 05:53 RBC 4.14 L (4.30-5.90) m/uL Hgb 12.3 L (13.0-17.5) gm/dL Hct 37.5 L (39.0-53.0) % Lymphocytes # 0.9 L (1.0-4.8) k/uL Calcium 7.7 L (8.7-10.3) mg/dL HDL Cholesterol 34.0 L (40.0-60.0) mg/dL Urine Protein 2+ H (Negative) Urine Ketones 2+ H (Negative) Urine Blood Small H (Negative) Ur Leukocyte Esterase Moderate H (Negative) Urine RBC 44 H (0-5) /hpf Urine WBC 54 H (0-5) /hpf Urine Bacteria Occasional H (None) /hpf Urine Mucus Rare H (None) /hpf Microbiology - Last 24 Hours (Table) 07/24/20 16:43 Blood Culture - Preliminary Blood No Growth after 24 hours 07/22/20 00:46 Blood Culture - Preliminary Blood No Growth after 72 hours 07/22/20 00:46 Blood Culture - Preliminary Blood No Growth after 72 hours Assessment and Plan Assessment: 1-patient presented to the hospital help with fall with laceration to the forehead and this patient has been spiking fever on a daily basis and did have extensive workup so far including CT angiogram of the chest was negative for PE did not show any pneumonia or groundglass opacities with pathognomonic for mackey virus infection, though most of the biochemical markers are pointing towards a viral infection, urine is negative and no evidence of any cellulitis (1) Fever Current Visit: Yes Status: Acute Code(s): R50.9 - FEVER, UNSPECIFIED SNOMED Code(s): 368070604 Plan: 1-we will recheck his inflammatory markers and pro-calcitonin 2-discontinue Rocephin 3-start the patient on Zosyn 3.375 grams every 8 hours 4-we will check a CT of abdominal pelvis with contrast in the morning We will follow on clinical condition and cultures to further adjust medication if needed Thank you for this consultation will follow this patient with you Time with Patient: Greater than 30
[2020-07-25] MEDS: PIPERACILLIN-TAZOBACTAM 3.375 GM in SODIUM CHLORIDE 0.9% 100 ML IVPB SCH (23:31)
[2020-07-26] MEDS: AZITHROMYCIN 500 MG TAB PO SCH (01:49)
[2020-07-26] MEDS: ACETAMINOPHEN TAB 325 MG TAB PO PRN (07:36)
[2020-07-26] MEDS: CHOLECALCIFEROL 1,000 UNIT TAB PO SCH (07:37)
[2020-07-26] MEDS: CITALOPRAM HYDROBROMIDE 20 MG TAB PO SCH (07:37)
[2020-07-26] MEDS: CARBIDOPA-LEVODOPA 25-100 MG 1 EACH TAB PO SCH ×2 (07:37→21:01)
[2020-07-26] MEDS: PIPERACILLIN-TAZOBACTAM 3.375 GM in SODIUM CHLORIDE 0.9% 100 ML IVPB SCH ×2 (07:37→15:58)
[2020-07-26] MEDS: TAMSULOSIN 0.4 MG CAP.ER.24H PO SCH ×2 (07:37→21:01)
[2020-07-26] MEDS: ASPIRIN 81 MG PO SCH (07:37)
[2020-07-26] MEDS: ASCORBIC ACID 500 MG TAB PO SCH ×3 (07:37→21:01)
[2020-07-26] MEDS: DONEPEZIL 10 MG TAB PO SCH (07:37)
[2020-07-26] MEDS: ZINC SULFATE 220 MG CAP PO SCH (07:37)
[2020-07-26] MEDS: ENOXAPARIN 40 MG/0.4 ML SYRINGE SQ SCH (07:53)
[2020-07-26] MEDS: CYANOCOBALAMIN 1,000 MCG/ML 1 ML VIAL IM SCH (09:25)
[2020-07-26] MEDS: IOPAMIDOL CONTRAST (ORAL USE) VIAL PO PRN ×2 (10:19→11:26)
[2020-07-26 10:20] LABS: African American GFR (CKD) 88.1 (60.0-200.0); Anion Gap 6.1 mmol/L (4.00-12.00); BUN/Creat Ratio 18.89 Ratio (12.00-20.00); C Reactive Protein 17.5 mg/dL (0.0-0.8); Carbon Dioxide 23.9 mmol/L (21.6-31.8); Potassium 3.5 mmol/L (3.5-5.5)
[2020-07-26] MEDS: THIAMINE 100 MG TAB PO SCH (13:15)
[2020-07-26] MEDS: MULTIVITAMINS, THERA 1 EACH TAB PO SCH (13:15)
[2020-07-26] MEDS: FOLIC ACID 1 MG TAB PO SCH (13:15)
--- NOTE | 2020-07-26 13:44 | CT ---
EXAMINATION TYPE: CT abdomen pelvis w con DATE OF EXAM: 07/26/2020 COMPARISON: None. HISTORY: Fever, PNA CT DLP: 870.5 mGycm, Automated Exposure Control for Dose Reduction was Utilized. CONTRAST: CT scan of the abdomen and pelvis is performed with oral and with IV Contrast, patient injected with 100 ml mL of Isovue 300. FINDINGS: LUNG BASES: Tiny right pleural effusion. Associated compressive atelectasis. Small left pleural effus ion. Posterior left basilar consolidation. Mild cardiomegaly. Coronary artery calcification noted. LIVER/GB: Occasional subcentimeter thin-walled cysts throughout the left hepatic lobe. PANCREAS: No significant abnormality is seen. SPLEEN: No significant abnormality is seen. ADRENALS: No significant abnormality is seen. KIDNEYS: Symmetric cortical medullary uptake and excretion without hydronephrosis or concerning renal mass bilaterally. Barnard catheter in decompressed bladder which has severe wall thickening. BOWEL: Oral contrast reaches level of mid sigmoid colon. No suspicious small or large bowel dilatatio n. Prominence of fecal material in the sigmoid rectal colon some contrast prominence of the cecum. No rmal contrast-filled appendix inferiorly. A few sigmoid colonic diverticula. No CT evidence for acute diverticulitis. PROSTATE/SEMINAL VESICLES: Enlarged prostate gland consistent with BPH. Several scattered pelvic phle boliths LYMPH NODES: No greater than 1cm abdominal or pelvic lymph nodes are appreciated. OSSEOUS STRUCTURES: Underlying scoliotic curvature. Ebau-[id number] multilevel disc space narrowing and vacuum disc phenomenon. Mild to moderate narrowing and spurring in both hip joints. OTHER: Moderate subcutaneous edema greatest over right side. Moderate to severe calcified plaque of t he aorta extends into branch vessels. Subcutaneous air anterior pelvic wall likely product of subcuta neous medicine injections, correlate clinically. IMPRESSION: 1. There is failure fluid overload state with mild to moderate diffuse soft tissue anasarca and small tiny left greater than right pleural effusions. Slightly more prominent or suspicious consolidation posterior left lung base noted. 2. Severe concentric wall thickening and decompressed bladder presumed product of outlet obstruction from BPH. Acute cystitis or bladder infection cannot be excluded.
--- NOTE | 2020-07-26 18:29 | PN ---
PROGRESS NOTE DATE OF SERVICE: 07/26/2020 This 89-year-old gentleman admitted with UTI with sepsis and continued fever. The cultures are negative. The patient treated empirically on antibiotics. Dr. Gallegos, from Infectious Disease has seen the patient and recommended continued followup. The patient had multiple inflammatory markers but Covid 19 was negative twice and also influenza was negative also. The patient also had a chest x-ray which was personally reviewed by me showed somewhat of bilateral lower lobe infiltrates and brain MRA showed no evidence of any acute changes. Abdomen and pelvis CAT scan was also done to complete the workup which showed fluid overload with anasarca. Suspicious consolidation in the posterior left lung. Presumed thickening of the bladder wall. Past medical history reviewed. REVIEW OF SYSTEMS: Could not be taken, the patient is confused. CURRENT MEDICATIONS: Are Tylenol. [place]. DuoNeb. Xanax. Vitamin C, Zithromax, cinnamon, Aricept. Lovenox, Antivert, Phenergan, Zosyn. Oral zinc. PHYSICAL EXAM: Patient is conscious, confused. Pulse 73, blood pressure 132/70, respirations 16, temperature 97.4, pulse ox 99% on room air. HEENT: Conjunctivae normal. Neck: No JVD. CARDIOVASCULAR: S1, S2 muffled. Respirations: Breath sounds diminished in the bases. A few scattered rhonchi and crackles. ABDOMEN: Soft. Nontender. Legs are no edema. No swelling. NERVOUS SYSTEM: Diffusely weak. LABS: WBC 8.2, hemoglobin 12.3, and D-dimer is 1.71. Procalcitonin 0.37. ASSESSMENT: 1. Acute urinary tract infection with possible sepsis present on admission with possibly indwelling Barnard catheter. Culture negative. 2. Continued fever. 3. Possible bilateral pneumonia, left more than the right, possibly viral interstitial pneumonia. 4. COVID-19 test negative x2. 5. Change in mental, status acute metabolic encephalopathy multifactorial. 6. Multiple falls with possible acute Parkinsonian disorder. 7. Gait dysfunction. 8. Elevated D-dimer without any evidence of acute pulmonary embolism or deep vein thrombosis. 9. Hyponatremia. 10.Anemia, normocytic anemia of chronic disease. 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 12.History of dementia. 13.Degenerative joint disease. 14.History of prostate disorder. 15.History of chronic Barnard catheter. 16.Urogenital implant history. 17.History of depression. 18.Remote history of nicotine dependence. RECOMMENDATIONS AND DISCUSSION: Recommend to continue current medications, management and symptomatic treatment. Otherwise, at this time, continue the broad-spectrum IV antibiotics per Dr. Gallegos's suggestion. Continue to monitor. Prognosis guarded. Further recommendations to follow. Covid 19 is negative and repeat cultures are pending. MMODL / IJN: [id number] /
[2020-07-26] MEDS: SODIUM CHLORIDE 0.9% 1,000 ML IV SCH (21:01)
[2020-07-26] MEDS: MELATONIN 3 MG TABLET PO SCH (21:01)
--- NOTE | 2020-07-26 22:44 | PN ---
PROGRESS NOTE DATE OF SERVICE: 07/26/2020 REASON FOR FOLLOWUP: Pneumonia. INTERVAL HISTORY: Patient is currently afebrile. He did have fever this morning of 101.7. The patient is more awake and alert. He is breathing comfortably on room air. Denies having any chest pain. Occasional cough. No abdominal pain. No diarrhea. PHYSICAL EXAMINATION: Blood pressure 132/70 with a pulse of 73, temperature 97.4. He is 99% on room air. General description: The patient is an elderly male lying in bed in no distress. Respiratory system: Unlabored breathing with decreased breath sounds at bases. No wheeze. HEART: S1, S2. Regular rate and rhythm. ABDOMEN: Soft, no tenderness. LAB: D. dimer is down to 1.71. CRP 17.5. Procalcitonin of 0.37. CT of abdomen and pelvis concern for left lower lobe pneumonia. DIAGNOSTIC IMPRESSION AND PLAN: Patient with fever, source likely left lower lobe pneumonia concern for possible aspiration. Patient is covered with Zosyn and fever pattern has improved. To continue and monitor clinical course closely. MMODL / IJN: [id number] /
[2020-07-27] MEDS: PIPERACILLIN-TAZOBACTAM 3.375 GM in SODIUM CHLORIDE 0.9% 100 ML IVPB SCH ×4 (00:04→23:03)
[2020-07-27] MEDS: AZITHROMYCIN 500 MG TAB PO SCH (00:04)
[2020-07-27] MEDS: ACETAMINOPHEN TAB 325 MG TAB PO PRN ×2 (03:10→19:36)
[2020-07-27] MEDS: CHOLECALCIFEROL 1,000 UNIT TAB PO SCH (08:49)
[2020-07-27] MEDS: TAMSULOSIN 0.4 MG CAP.ER.24H PO SCH ×2 (08:49→20:12)
[2020-07-27] MEDS: ENOXAPARIN 40 MG/0.4 ML SYRINGE SQ SCH (08:49)
[2020-07-27] MEDS: MULTIVITAMINS, THERA 1 EACH TAB PO SCH (08:50)
[2020-07-27] MEDS: FOLIC ACID 1 MG TAB PO SCH (08:50)
[2020-07-27] MEDS: THIAMINE 100 MG TAB PO SCH (08:50)
[2020-07-27] MEDS: ASCORBIC ACID 500 MG TAB PO SCH ×2 (08:50→20:12)
[2020-07-27] MEDS: ASPIRIN 81 MG PO SCH (08:50)
[2020-07-27] MEDS: CITALOPRAM HYDROBROMIDE 20 MG TAB PO SCH (08:50)
[2020-07-27] MEDS: DONEPEZIL 10 MG TAB PO SCH (08:50)
[2020-07-27] MEDS: CARBIDOPA-LEVODOPA 25-100 MG 1 EACH TAB PO SCH ×2 (08:50→20:12)
[2020-07-27] MEDS: ZINC SULFATE 220 MG CAP PO SCH (08:50)
--- NOTE | 2020-07-27 13:53 | P.PN ---
Subjective Progress Note Date: 07/27/20 HISTORY OF PRESENT ILLNESS This is an 89-year-old male presented to the hospital for pneumonia a nd treated with Zosyn. Patient continues to have fever with temperature max 103.1 at 3 AM. Patient denies having any shortness of breath. He denies chest pain, no cough. No nausea or vomiting. Blood pressure 117/62, pulse ox 92% on room air, heart rate 77. Previous blood cultures are showing no growth. Urine cultures finalized with no growth. No blood culture was obtained at time of fever this morning. PHYSICAL EXAMINATION Gen: This is an 89-year-old male. Patient is resting in bed and appears to be comfortable. No acute respiratory distress noted. HEENT: Head is atraumatic, normocephalic. Pupils equal, round. Sclerae is anicteric. NECK: Supple. No JVD. No lymphadenopathy. LUNGS: Decreased breath sounds in the bases. No wheezes. No intercostal retractions. HEART: Regular rate and rhythm. No murmur. ABDOMEN: Soft. Bowel sounds are present. No masses. No tenderness. Barnard catheter. EXTREMITIES: No pedal edema. No calf tenderness. NEUROLOGICAL: Patient is awake, alert and oriented to person and place with mild confusion.. ASSESSMENT Sepsis secondary to Left lower lobe pneumonia, possible aspiration pneumonia PLAN Continue Zosyn Discontinue azithromycin Continue supportive treatment Obtain blood cultures at time of fever. The above dictated assessment and findings were discussed with Dr. Gallegos. The impression and plan of care have been directed as dictated. Brittney Ramachandran nurse practitioner acting as scribe for Dr. Gallegos. Objective - Vital Signs Vital signs: Vital Signs Temp 99 F 07/27/20 07:41 Pulse 77 07/27/20 07:41 Resp 22 07/27/20 07:41 BP 117/62 07/27/20 07:41 Pulse Ox 92 L 07/27/20 07:41 Intake & Output 07/26/20 07/27/20 07/27/20 18:59 06:59 18:59 Intake Total 400 Output Total 400 375 Balance 0 -375 Intake: IV 400 Sodium Chloride 0.9% 1, 400 000 ml @ 50 mls/hr IV . Q20H [facility] Rx#:[id number] Output: Urine 400 375 Uretheral (Barnard) 200 Other: Voiding Method Indwelling Catheter Indwelling Catheter Indwelling Catheter # Bowel Movements 1 - Labs CBC & Chem 7: 07/25/20 05:53 07/26/20 05:54 Labs: Microbiology - Last 24 Hours (Table) 07/22/20 00:46 Blood Culture - Preliminary Blood No Growth after 120 hours 07/22/20 00:46 Blood Culture - Preliminary Blood No Growth after 120 hours 07/24/20 16:43 Blood Culture - Preliminary Blood No Growth after 48 hours 07/25/20 16:35 Urine Culture - Final Urine,Catheterized 07/25/20 15:22 Blood Culture - Preliminary Blood No Growth after 24 hours
[2020-07-27] MEDS: SODIUM CHLORIDE 0.9% 1,000 ML IV SCH (14:06)
--- NOTE | 2020-07-27 17:33 | PN ---
PROGRESS NOTE DATE OF SERVICE: 07/27/2020 This 89-year-old gentleman with possible acute urinary tract infection with sepsis, is being closely monitored. The patient continues to have fever, all the cultures are negative so far. D-dimer is still elevated 1.71 and Covid testing is done multiple occasions, which is negative. Most recent blood cultures also being sought. Past medical history reviewed. REVIEW OF SYSTEMS: Patient continues to be confused. CURRENT MEDICATIONS: Tylenol, Remus, aspirin, vitamin C, Sinemet, Celexa, Lovenox, folic acid, melatonin, Zosyn, multivitamins, vitamin B1, oral zinc. PHYSICAL EXAM: Patient is conscious, confused. Pulse 108. Blood pressure 140/80, respirations 22. Temperature 98.8, pulse ox 98% on 2 L. HEENT: Conjunctivae normal. Neck: No JVD. CARDIOVASCULAR: S1, S2 muffled. Respirations: Breath sounds diminished in the bases. A few scattered rhonchi and crackles. ABDOMEN: Soft, nontender. Legs are no edema. No swelling. NERVOUS SYSTEM: Diffusely weak. LABS: WBC 8.2, hemoglobin 12.3, and D-dimer is 1.71. ASSESSMENT: 1. Acute urinary tract infection with possible sepsis, present on admission with possible indwelling Barnard catheter. Culture negative. 2. Continued fever. 3. Possible bilateral pneumonia, left more than the right, possibly interstitial viral pneumonia. 4. COVID-19 test is negative x2. 5. Change in mental status/possibly acute metabolic encephalopathy, multifactorial. 6. Multiple falls with possible acute Parkinsonian disorder. 7. Gait dysfunction. 8. Elevated D-dimer without any evidence of acute pulmonary embolism or deep vein thrombosis. 9. Hyponatremia. 10.Anemia, normocytic anemia of chronic disease. 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 12.History of dementia. 13.Degenerative joint disease. 14.History of prostate disorder. 15.History of chronic Barnard catheter. 16.Urogenital implant history. 17.History of depression. 18.Remote history of nicotine dependence. RECOMMENDATIONS AND DISCUSSION: Recommend to continue current medications, management and continue symptomatic treatment. Continue the broad-spectrum IV antibiotics. Continue the rest of medications. Repeat cultures. Otherwise, closely follow with Infectious Disease. Prognosis guarded because of multiple complex medical issues. Further recommendations to follow. MMODL / IJN: [id number] /
[2020-07-27] MEDS: MELATONIN 3 MG TABLET PO SCH (20:12)
[2020-07-28] MEDS: DONEPEZIL 10 MG TAB PO SCH (07:40)
[2020-07-28] MEDS: CITALOPRAM HYDROBROMIDE 20 MG TAB PO SCH (07:40)
[2020-07-28] MEDS: ASPIRIN 81 MG PO SCH (07:41)
[2020-07-28] MEDS: TAMSULOSIN 0.4 MG CAP.ER.24H PO SCH ×2 (07:41→20:00)
[2020-07-28] MEDS: ZINC SULFATE 220 MG CAP PO SCH (07:41)
[2020-07-28] MEDS: THIAMINE 100 MG TAB PO SCH (07:41)
[2020-07-28] MEDS: CHOLECALCIFEROL 1,000 UNIT TAB PO SCH (07:41)
[2020-07-28] MEDS: CARBIDOPA-LEVODOPA 25-100 MG 1 EACH TAB PO SCH ×2 (07:41→20:00)
[2020-07-28] MEDS: PIPERACILLIN-TAZOBACTAM 3.375 GM in SODIUM CHLORIDE 0.9% 100 ML IVPB SCH ×3 (07:41→23:26)
[2020-07-28] MEDS: MULTIVITAMINS, THERA 1 EACH TAB PO SCH (07:41)
[2020-07-28] MEDS: FOLIC ACID 1 MG TAB PO SCH (07:41)
[2020-07-28] MEDS: ASCORBIC ACID 500 MG TAB PO SCH ×2 (07:41→20:00)
[2020-07-28] MEDS: ENOXAPARIN 40 MG/0.4 ML SYRINGE SQ SCH (07:42)
[2020-07-28] MEDS: SODIUM CHLORIDE 0.9% 1,000 ML IV SCH (07:42)
[2020-07-28] MEDS: IPRATROPIUM-ALBUTEROL 3 ML NEB INHALATION PRN (08:30)
[2020-07-28 13:17] VITALS: BMI 22.3
--- NOTE | 2020-07-28 14:26 | P.PN ---
Subjective Progress Note Date: 07/28/20 Upon seeing the patient bedside he stated that he wants to go home. He said that he feels about the same as the since couple days ago. The patient nurse she's being treated for pneumonia. Objective - Vital Signs Vital signs: Vital Signs Temp 97.8 F 07/28/20 07:47 Pulse 62 07/28/20 08:39 Resp 18 07/28/20 07:47 BP 129/71 07/28/20 07:47 Pulse Ox 91 L 07/28/20 07:47 Intake & Output 07/27/20 07/28/20 07/28/20 18:59 06:59 18:59 Intake Total 100 Output Total 0 400 Balance 0 -300 Intake: Oral 100 Output: Urine 400 Urine/Stool Mix 0 Other: Voiding Method Indwelling Catheter Indwelling Catheter Indwelling Catheter # Voids 3 # Bowel Movements 1 - Exam GENERAL: The patient is lying in bed and is not in acute distress. NEUROLOGICAL: Higher mental function: The patient is awake, alert, oriented to self. He st ated that he is in the hospital but could not tell me which hospital he was at. He is not oriented to time he stated that was 1998. Patient is able to follow simple commands. No aphasia and no neglect Cranial nerves: The pupils are round, equal and reactive to light. Visual santos are full confrontation of the bilateral lower field spot for the upper back could not assess because his cooperation and he was bluntly answering for bilateral upper santos. Extraocular movement is intact no nystagmus. Facial sensation is normal to touch throughout. The facial strength is normal throughout. Tongue is midline and moved [id number] without any difficulty. No dysarthria is noted. Motor: Gait is deferred because of the patient cooperation. The strength patient is able to lift bilateral upper extremity above gravity as well as bilateral lower extremity above gravity and the didn't appreciate any focality except on the left ankle dorsiflexion which seems weak and I felt like the strength was probably at 2-3/5 while left lateral flexion I would say 4+ to 5 minus I felt the patient had increased tone on the left upper extremity mostly in the wrist elbow area. No resting tremor is noted. Sensation: Sensation is normal to touch throughout. Reflexes (right/left): 2+ throughout except ankles are 1+ bilaterally. Plantars are downgoing bilaterally. - Labs CBC & Chem 7: 07/25/20 05:53 07/26/20 05:54 Labs: Microbiology - Last 24 Hours (Table) 07/22/20 00:46 Blood Culture - Final Blood No Growth after 144 hours 07/22/20 00:46 Blood Culture - Final Blood No Growth after 144 hours 07/24/20 16:43 Blood Culture - Preliminary Blood No Growth after 72 hours 07/25/20 15:22 Blood Culture - Preliminary Blood No Growth after 48 hours Assessment and Plan Assessment: * Parkinsonian symptoms, possible Parkinson's disease. * Left ICA stenosis 50-69%, likely asymptomatic, as it is on the ipsilateral side of symptoms. * Left foot drop * Dementia * Acute UTI * Anemia * Degenerative joint disease Plan: * Continue Sinemet 25/100, one tablet twice a day. * MRI of brain: Reported as cerebral atrophy and chronic white matter changes probably due to small vessel ischemia. No evidence of acute cortical infarct. * Carotid Doppler showed atheromatous plaquing present bilateral carotid bifurcations. Moderate narrowing between 50-69% of the left ICA origin based on the velocity. Antegrade flow in both vertebral arteries. Vascular surgery input appreciated. No surgical intervention needed. * Patient started on aspirin 81 mg daily. Started the patient on Lipitor which will also help with the carotid stenosis. * Lipid profiles triglyceride 89, cholesterol is 149, LDLs 90s 7.2, and HDL is 34. * Vitamin B12 is 272 which is considered low normal. Therefore I'll start the patient on the vitamin B12 1000 g daily. * Folate is more than 24 which is normal. Patient is also on folic acid 1 mg daily which was started by the primary team. * Patient hemoglobin A1c is 4.9 is considered normal. * PT and OT. * Regarding the patient left footdrop consider getting EMG with nerve conduction as an outpatient. Also patient needs to follow-up with a neurologist in outpatient within 2 weeks. Time with Patient: Less than 30
--- NOTE | 2020-07-28 15:44 | P.PN ---
Subjective Progress Note Date: 07/28/20 This is an 89-year-old male who was recently admitted with possible acute urinary tract infection with sepsis and is being closely monitored. Urine cultures have been negative and patient is maintained on Zosyn and will continue at this time. Infectious disease is following. Patient continues to be con fused and weak and PT/OT following recommending 24-hour care or subacute rehab and patient does reside at [facility]. Will discuss with social work about discharge planning needs. Most recent d-dimer was elevated although multiple Covid 19 testings have been negative. Patient is currently maintaining 92% on 4 L via nasal cannula. No reports of chest pain or shortness of breath. Patient continues to be confused. Patient is afebrile. Will continue to monitor closely. Neurology has also seen and evaluated the patient recommending outpatient follow-up for further EMG testing related to the left foot drop. Review of systems: Unable to obtain as patient remains confused Active Medications Acetaminophen (Acetaminophen Tab 325 Mg Tab) 650 mg PO Q4HR PRN PRN Reason: Fever and/ or Pain Last Admin: 07/27/20 19:36 Dose: 650 mg Documented by: Hydrocodone Bitart/Acetaminophen (Hydrocodone/Apap 5-325mg 1 Each Tab) 1 each PO Q6HR PRN PRN Reason: Pain Albuterol/Ipratropium (Ipratropium-Albuterol 3 Ml Neb) 3 ml INHALATION RT-Q4H PRN PRN Reason: shortness of breath Last Admin: 07/28/20 08:30 Dose: 3 ml Documented by: Alprazolam (Alprazolam 0.25 Mg Tab) 0.25 mg PO TID PRN PRN Reason: Anxiety Last Admin: 07/24/20 05:42 Dose: 0.25 mg Documented by: Ascorbic Acid (Ascorbic Acid 500 Mg Tab) 500 mg PO BID [facility] Last Admin: 07/28/20 07:41 Dose: 500 mg Documented by: Aspirin (Aspirin 81 Mg) 81 mg PO DAILY [facility] Last Admin: 07/28/20 07:41 Dose: 81 mg Documented by: Atorvastatin Calcium (Atorvastatin 40 Mg Tab) 40 mg PO HS [facility] Carbidopa/Levodopa (Carbidopa-Levodopa 25-100 Mg 1 Each Tab) 1 each PO BID [facility] Last Admin: 07/28/20 07:41 Dose: 1 each Documented by: Cholecalciferol (Cholecalciferol 1,000 Unit Tab) 2,000 unit PO DAILY [facility] Last Admin: 07/28/20 07:41 Dose: 2,000 unit Documented by: Citalopram Hydrobromide (Citalopram Hydrobromide 20 Mg Tab) 20 mg PO DAILY [facility] Last Admin: 07/28/20 07:40 Dose: 20 mg Documented by: Cyanocobalamin (Cyanocobalamin 500 Mcg Tab) 1,000 mcg PO DAILY [facility] Donepezil HCl (Donepezil 10 Mg Tab) 10 mg PO DAILY [facility] Last Admin: 07/28/20 07:40 Dose: 10 mg Documented by: Enoxaparin Sodium (Enoxaparin 40 Mg/0.4 Ml Syringe) 40 mg SQ DAILY [facility] Last Admin: 07/28/20 07:42 Dose: 40 mg Documented by: Folic Acid (Folic Acid 1 Mg Tab) 1 mg PO DAILY@1200 [facility] Last Admin: 07/28/20 07:41 Dose: 1 mg Documented by: Sodium Chloride (Saline 0.9%) 1,000 mls @ 50 mls/hr IV .Q20H [facility] Last Admin: 07/28/20 07:42 Dose: Not Given Documented by: Piperacillin Sod/Tazobactam (Sod 3.375 gm/ Sodium Chloride) 100 mls @ 25 mls/hr IVPB Q8HR [facility] Last Admin: 07/28/20 07:41 Dose: 25 mls/hr Documented by: Meclizine HCl (Meclizine 12.5 Mg Tab) 12.5 mg PO TID PRN PRN Reason: Vertigo Melatonin (Melatonin 3 Mg Tablet) 3 mg PO HS [facility] Last Admin: 07/27/20 20:12 Dose: 3 mg Documented by: Miscellaneous Information (Pneumonia Protocol Utilized 1 Each Misc) 1 each PO ONCE PRN PRN Reason: Per Protocol Multivitamins (Multivitamins, Thera 1 Each Tab) 1 each PO DAILY@1200 [facility] Last Admin: 07/28/20 07:41 Dose: 1 each Documented by: Tamsulosin HCl (Tamsulosin 0.4 Mg Cap.Er.24h) 0.4 mg PO BID [facility] Last Admin: 07/28/20 07:41 Dose: 0.4 mg Documented by: Thiamine HCl (Thiamine 100 Mg Tab) 100 mg PO DAILY@1200 [facility] Last Admin: 07/28/20 07:41 Dose: 100 mg Documented by: Zinc Sulfate (Zinc Sulfate 220 Mg Cap) 220 mg PO DAILY [facility] Last Admin: 07/28/20 07:41 Dose: 220 mg Documented by: Objective - Vital Signs Vital signs: Vital Signs Temp 97.9 F 07/28/20 14:00 Pulse 64 07/28/20 14:00 Resp 19 07/28/20 14:00 BP 145/67 07/28/20 14:00 Pulse Ox 92 L 07/28/20 14:00 Intake & Output 07/27/20 07/28/20 07/28/20 18:59 06:59 18:59 Intake Total 100 Output Total 0 400 Balance 0 -300 Weight 66.5 kg Intake: Oral 100 Output: Urine 400 Urine/Stool Mix 0 Other: Voiding Method Indwelling Catheter Indwelling Catheter Indwelling Catheter # Voids 3 # Bowel Movements 1 - Exam Gen: This is a 89-year-old male sitting up in bed awake, alert and oriented 1, well-developed, well-nourished. Temp is any 7.9F, pulse is 64, respirations are 19, blood pressure is 145/67, oxygen saturation is 92% on 4 L via nasal cannula. HEENT: Head is atraumatic, normocephalic. Pupils equal, round. Sclerae is anicteric. NECK: Supple. No JVD. No lymphadenopathy. No thyromegaly. LUNGS: Breath sounds diminished at the bases with a few scattered rhonchi and crackles noted. No intercostal retractions. HEART: S1, S2 are muffled ABDOMEN: Soft. Bowel sounds are present. No masses. No tenderness. EXTREMITIES: No pedal edema. No calf tenderness. NEUROLOGICAL: Patient is awake, alert and oriented x1. Confused. Diffusely weak - Labs CBC & Chem 7: 07/25/20 05:53 07/26/20 05:54 Labs: Microbiology - Last 24 Hours (Table) 07/22/20 00:46 Blood Culture - Final Blood No Growth after 144 hours 07/22/20 00:46 Blood Culture - Final Blood No Growth after 144 hours 07/24/20 16:43 Blood Culture - Preliminary Blood No Growth after 72 hours 07/25/20 15:22 Blood Culture - Preliminary Blood No Growth after 48 hours Assessment and Plan Assessment: Acute urinary tract infection with possible sepsis, present on admission with possible indwelling Barnard catheter. 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 Patient is maintained on IV antibiotics in the form of Zosyn and will continue at this time. Urine cultures are negative. Multiple medical consultations following including infectious disease. Due to multiple complex medical issues, prognosis is guarded. Case management and social work following working on possible ECF placement for continued PT/OT therapy. Further recommendations to follow.
[2020-07-28] MEDS: CYANOCOBALAMIN 500 MCG TAB PO SCH (17:46)
[2020-07-28] MEDS: ACETAMINOPHEN TAB 325 MG TAB PO PRN (19:11)
[2020-07-28] MEDS: MELATONIN 3 MG TABLET PO SCH (20:00)
[2020-07-28] MEDS: ATORVASTATIN 40 MG TAB PO SCH (20:00)
--- NOTE | 2020-07-28 23:18 | PN ---
PROGRESS NOTE DATE OF SERVICE: 07/28/2020 REASON FOR FOLLOWUP: Pneumonia. INTERVAL HISTORY: Patient was seen on rounds this afternoon. The patient has been afebrile. The patient though did spike a fever last night of 102.8. The patient is hemodynamically stable. No nausea. No vomiting. No abdominal pain or diarrhea. PHYSICAL EXAMINATION: Blood pressure 145/67, pulse of 64, temperature 97.9, pulse ox 92% on 4 L nasal cannula. General description is an elderly male lying in bed in no distress. Respiratory system: Unlabored breathing with decreased breath sounds in the base, with no wheeze. Heart S1, S2. Regular rate. ABDOMEN: Soft, no tenderness. LABS: No new labs have been obtained in the last 2 days. DIAGNOSTIC IMPRESSION AND PLAN: Patient with fever with concern for pneumonia and a question of possible aspiration and has been treated with Zosyn. However, persistent fever is slightly concerning as we do not have any other obvious focus on this infection. Cultures will be repeated and antibiotic adjusted further if needed. Continue supportive care. MMODL / IJN: [id number] /
[2020-07-28] MEDS: DEXAMETHASONE SOD PHOSPHATE 10 MG/ML 1 ML VIAL IV SCH (23:26)
[2020-07-29 00:06] LABS: Amorphous Sediment,Urine Occasional /hpf; Appearance,Urine Turbid (Clear); Bacteria,Urine Rare /hpf; Bilirubin,Urine Negative (Negative); Blood,Urine Negative (Negative); Color,Urine Yellow; Glucose,Urine (UA) Negative (Negative); Granular Casts,Urine 7 /lpf (0); Hyaline Casts,Urine 3 /lpf (0-2); Ketones,Urine Trace (Negative); Leukocyte Esterase,Urine Trace (Negative); Mucus,Urine Rare /hpf; Nitrite,Urine Negative (Negative); Protein,Urine 2+ (Negative); RBC,Urine 10 /hpf (0-5); Specific Gravity,Urine 1.026 (1.001-1.035); Squamous Epithelial Cell,Urine 3 /hpf (0-4); Urobilinogen,Urine <2.0 mg/dL (<2.0); WBC,Urine 22 /hpf (0-5)
[2020-07-29] MEDS: SODIUM CHLORIDE 0.9% 1,000 ML IV SCH ×2 (03:34→23:17)
[2020-07-29 06:40] LABS: Basophils % (A) 0 %; Eosinophils % (A) 0 %; HCT 33.2 % (39.0-53.0); HGB 10.9 gm/dL (13.0-17.5); Lymphocytes # (A) 0.4 k/uL (1.0-4.8); Lymphocytes % (A) 5 %; MCH 28.7 pg (25.0-35.0); MCHC 32.7 g/dL (31.0-37.0); MCV 87.8 fL (80.0-100.0); Mean Platelet Volume 7.1; Monocytes # (A) 0.2 k/uL (0-1.0); Monocytes % (A) 3 %; Neutrophils # (A) 8.1 k/uL (1.3-7.7); Neutrophils % (A) 91 %; Platelet Count 266 k/uL (150-450); RBC 3.78 m/uL (4.30-5.90); WBC 8.9 k/uL (3.8-10.6)
--- NOTE | 2020-07-29 08:36 | XR ---
EXAMINATION TYPE: XR chest 2V DATE OF EXAM: 07/29/2020 COMPARISON: Chest x-ray 4 days ago and older studies. CTA chest July 22, 2020 HISTORY: Cough and shortness of breath. TECHNIQUE: Frontal and lateral views of the chest are obtained. FINDINGS: There is persistent bibasilar opacities. There are new right hilar and upper lung opaciti es on current study. The cardiac silhouette size is upper limits of normal and more prominent with at herosclerotic aortic knob. The osseous structures remain demineralized. Underlying scoliotic curvat ure is present. IMPRESSION: Small bilateral pleural effusions are now present. Persistent bibasilar acute infiltrate and/or atelectasis. New right upper and midlung acute infiltrates.
[2020-07-29] MEDS: DEXAMETHASONE SOD PHOSPHATE 10 MG/ML 1 ML VIAL IV SCH (08:42)
[2020-07-29] MEDS: PIPERACILLIN-TAZOBACTAM 3.375 GM in SODIUM CHLORIDE 0.9% 100 ML IVPB SCH ×3 (08:45→23:59)
[2020-07-29] MEDS: ENOXAPARIN 40 MG/0.4 ML SYRINGE SQ SCH (08:47)
[2020-07-29] MEDS: CHOLECALCIFEROL 1,000 UNIT TAB PO SCH (08:49)
[2020-07-29] MEDS: MULTIVITAMINS, THERA 1 EACH TAB PO SCH (08:49)
[2020-07-29] MEDS: ZINC SULFATE 220 MG CAP PO SCH (08:49)
[2020-07-29] MEDS: CYANOCOBALAMIN 500 MCG TAB PO SCH (08:49)
[2020-07-29] MEDS: THIAMINE 100 MG TAB PO SCH (08:49)
[2020-07-29] MEDS: ASCORBIC ACID 500 MG TAB PO SCH ×2 (08:49→20:55)
[2020-07-29] MEDS: FOLIC ACID 1 MG TAB PO SCH (08:49)
[2020-07-29] MEDS: TAMSULOSIN 0.4 MG CAP.ER.24H PO SCH ×2 (08:57→20:55)
[2020-07-29] MEDS: ASPIRIN 81 MG PO SCH (08:57)
[2020-07-29] MEDS: CARBIDOPA-LEVODOPA 25-100 MG 1 EACH TAB PO SCH ×2 (08:57→20:55)
[2020-07-29] MEDS: CITALOPRAM HYDROBROMIDE 20 MG TAB PO SCH (08:58)
[2020-07-29] MEDS: DONEPEZIL 10 MG TAB PO SCH (08:58)
--- NOTE | 2020-07-29 11:04 | P.PN ---
Subjective Progress Note Date: 07/29/20 HISTORY OF PRESENT ILLNESS This is an 89-year-old male presented to the hospital for pneumonia a nd treated with Zosyn. Patient continues to have fever with temperature max 101.6. Patient complains of feeling tired and only wants to nap. Patient denies having any shortness of breath. He denies chest pain, no cough. No nausea or vomiting. Patient's nurse has concerns regarding swallowing with thin liquids. Consult with speech therapy will be added. Patient also has diarrhea 3-4 times this morning. Blood pressure 123/68, heart rate 55, pulse ox 97% on 4 L nasal cannula., pulse ox 92% on room air, heart rate 77. All blood cultures are showing no growth. Urine cultures finalized with no growth. Urine culture obtained on July 28 is in process. PHYSICAL EXAMINATION Gen: This is an 89-year-old male. Patient is resting in bed and appears to be comfortable. No acute respiratory distress noted. HEENT: Head is atraumatic, normocephalic. Pupils equal, round. Sclerae is anicteric. NECK: Supple. No JVD. No lymphadenopathy. LUNGS: Decreased breath sounds in the bases. No wheezes. No intercostal retractions. HEART: Regular rate and rhythm. No murmur. ABDOMEN: Soft. Bowel sounds are present. No masses. No tenderness. Barnard catheter. EXTREMITIES: No pedal edema. No calf tenderness. NEUROLOGICAL: Patient is awake, alert and oriented to person and place with mild confusion.. ASSESSMENT Sepsis secondary to Left lower lobe pneumonia, possible aspiration pneumonia Diarrhea, rule out C. difficile colitis PLAN Continue Zosyn Legionella antigen test ordered C. difficile toxin ordered Consult with speech therapy regarding difficulty swallowing liquids. Continue supportive treatment Obtain blood cultures at time of fever. The above dictated assessment and findings were discussed with Dr. Gallegos. The impression and plan of care have been directed as dictated. Brittney Ramachandran nurse practitioner acting as scribe for Dr. Gallegos. Objective - Vital Signs Vital signs: Vital Signs Temp 97.7 F 07/29/20 07:19 Pulse 55 L 07/29/20 07:19 Resp 18 07/29/20 07:19 BP 123/68 07/29/20 07:19 Pulse Ox 97 07/29/20 07:19 Intake & Output 07/28/20 07/29/20 07/29/20 18:59 06:59 18:59 Intake Total 200 Output Total 400 300 Balance -400 -100 Weight 66.5 kg Intake: Oral 200 Output: Urine 400 300 Uretheral (Barnard) 300 Other: Voiding Method Indwelling Catheter Indwelling Catheter # Bowel Movements 1 - Labs CBC & Chem 7: 07/29/20 06:20 07/26/20 05:54 Labs: Abnormal Lab Results - Last 24 Hours (Table) 07/28/20 07/29/20 Range/Units 23:35 06:20 RBC 3.78 L (4.30-5.90) m/uL Hgb 10.9 L (13.0-17.5) gm/dL Hct 33.2 L (39.0-53.0) % Neutrophils # 8.1 H (1.3-7.7) k/uL Lymphocytes # 0.4 L (1.0-4.8) k/uL Urine Protein 2+ H (Negative) Urine Ketones Trace H (Negative) Ur Leukocyte Esterase Trace H (Negative) Urine RBC 10 H (0-5) /hpf Urine WBC 22 H (0-5) /hpf Amorphous Sediment Occasional H (None) /hpf Urine Bacteria Rare H (None) /hpf Hyaline Casts 3 H (0-2) /lpf Urine Mucus Rare H (None) /hpf Microbiology - Last 24 Hours (Table) 07/24/20 16:43 Blood Culture - Preliminary Blood No Growth after 96 hours 07/25/20 15:22 Blood Culture - Preliminary Blood No Growth after 72 hours 07/27/20 14:27 Blood Culture - Preliminary Blood No Growth after 24 hours 07/27/20 14:12 Blood Culture - Preliminary Blood No Growth after 24 hours
[2020-07-29 11:12] LABS: Anion Gap 8.3 mmol/L (4.00-12.00); Calcium 7.6 mg/dL (8.7-10.3); Carbon Dioxide 23.7 mmol/L (21.6-31.8); Potassium 3.1 mmol/L (3.5-5.5)
[2020-07-29 11:17] LABS: C Reactive Protein 21.7 mg/dL (0.0-0.8)
[2020-07-29 12:17] LABS: African American GFR (CKD) 62.2 (60.0-200.0); BUN/Creat Ratio 15.83 Ratio (12.00-20.00); Non-African American GFR(CKD) 53.7 (60.0-200.0)
--- NOTE | 2020-07-29 16:49 | P.PN ---
Subjective Progress Note Date: 07/29/20 Patient was seen at bedside he feels the same about yesterday. Per the patient nurse he's having some loose stools. Otherwise no worsening of his mentation or any focal weakness that seen. Objective - Vital Signs Vital signs: Vital Signs Temp 97.7 F 07/29/20 07:19 Pulse 55 L 07/29/20 08:00 Resp 18 07/29/20 08:00 BP 123/68 07/29/20 07:19 Pulse Ox 97 07/29/20 07:19 Intake & Output 07/28/20 07/29/20 07/29/20 18:59 06:59 18:59 Intake Total 200 Output Total 400 300 Balance -400 -100 Weight 66.5 kg Intake: Oral 200 Output: Urine 400 300 Uretheral (Barnard) 300 Other: Voiding Method Indwelling Catheter Indwelling Catheter Indwelling Catheter # Bowel Movements 1 - Exam GENERAL: The patient is lying in bed and is not in acute distress. NEUROLOGICAL: Higher mental function: The patient is awake, alert, oriented to self. He stated that he is in the hospital but could not tell me which hospital he was at. He is not oriented to time he stated that was 1989. Patient is able to follow simple commands. No aphasia and no neglect Cranial nerves: The pupils are round, equal and reactive to light. Visual fie lds are full confrontation of the bilateral lower field spot for the upper back could not assess because his cooperation and he was bluntly answering for bilateral upper santos. Extraocular movement is intact no nystagmus. Facial sensation is normal to touch throughout. The facial strength is normal throughout. Tongue is midline and moved [id number] without any difficulty. No dysarthria is noted. Motor: Gait is deferred because of his condition The strength patient is able to lift bilateral upper extremity above gravity as well as bilateral lower extremity above gravity and I didn't appreciate any focality except on the left ankle dorsiflexion which seems weak and I felt like the strength was probably at 2-3/5 while left lateral flexion I would say 4+ to 5 minus I felt the patient had increased tone on the left upper extremity mostly in the wrist elbow area. I also felt like he had increased tone in the left lower extremity No resting tremor is noted. Sensation: Sensation is normal to touch throughout. Reflexes (right/left): 2+ throughout except ankles are 1+ bilaterally. Plantars are downgoing bilaterally. - Labs CBC & Chem 7: 07/29/20 06:20 07/29/20 06:20 Labs: Abnormal Lab Results - Last 24 Hours (Table) 07/28/20 07/29/20 07/29/20 Range/Units 23:35 06:20 06:20 RBC 3.78 L (4.30-5.90) m/uL Hgb 10.9 L (13.0-17.5) gm/dL Hct 33.2 L (39.0-53.0) % Neutrophils # 8.1 H (1.3-7.7) k/uL Lymphocytes # 0.4 L (1.0-4.8) k/uL Potassium (3.5-5.5) mmol/L Est GFR (CKD-EPI)NonAf (60.0-200.0) Calcium (8.7-10.3) mg/dL Lactate Dehydrogenase (120-246) U/L C-Reactive Protein (0.0-0.8) mg/dL Procalcitonin 0.30 H (0.02-0.09) ng/mL Urine Protein 2+ H (Negative) Urine Ketones Trace H (Negative) Ur Leukocyte Esterase Trace H (Negative) Urine RBC 10 H (0-5) /hpf Urine WBC 22 H (0-5) /hpf Amorphous Sediment Occasional H (None) /hpf Urine Bacteria Rare H (None) /hpf Hyaline Casts 3 H (0-2) /lpf Urine Mucus Rare H (None) /hpf 07/29/20 Range/Units 06:20 RBC (4.30-5.90) m/uL Hgb (13.0-17.5) gm/dL Hct (39.0-53.0) % Neutrophils # (1.3-7.7) k/uL Lymphocytes # (1.0-4.8) k/uL Potassium 3.1 L (3.5-5.5) mmol/L Est GFR (CKD-EPI)NonAf 53.7 L (60.0-200.0) Calcium 7.6 L (8.7-10.3) mg/dL Lactate Dehydrogenase 264 H (120-246) U/L C-Reactive Protein 21.7 H (0.0-0.8) mg/dL Procalcitonin (0.02-0.09) ng/mL Urine Protein (Negative) Urine Ketones (Negative) Ur Leukocyte Esterase (Negative) Urine RBC (0-5) /hpf Urine WBC (0-5) /hpf Amorphous Sediment (None) /hpf Urine Bacteria (None) /hpf Hyaline Casts (0-2) /lpf Urine Mucus (None) /hpf Microbiology - Last 24 Hours (Table) 07/28/20 23:35 Urine Culture - Preliminary Urine,Voided 07/24/20 16:43 Blood Culture - Preliminary Blood No Growth after 96 hours 07/25/20 15:22 Blood Culture - Preliminary Blood No Growth after 72 hours 07/27/20 14:27 Blood Culture - Preliminary Blood No Growth after 24 hours 07/27/20 14:12 Blood Culture - Preliminary Blood No Growth after 24 hours Assessment and Plan Assessment: * Parkinsonian symptoms, possible Parkinson's disease. * Left ICA stenosis 50-69%, likely asymptomatic, as it is on the ipsilateral side of symptoms. * Left foot drop * Dementia * Acute UTI * Anemia * Degenerative joint disease Plan: * Continue Sinemet 25/100, one tablet twice a day. * MRI of brain: Reported as cerebral atrophy and chronic white matter changes probably due to small vessel ischemia. No evidence of acute cortical infarct. * Carotid Doppler showed atheromatous plaquing present bilateral carotid bifurcations. Moderate narrowing between 50-69% of the left ICA origin based on the velocity. Antegrade flow in both vertebral arteries. Vascular surgery input appreciated. No surgical intervention needed. * Patient started on aspirin 81 mg daily. Started the patient on Lipitor which will also help with the carotid stenosis. * Lipid profiles triglyceride 89, cholesterol is 149, LDLs 90s 7.2, and HDL is 34. * Vitamin B12 is 272 which is considered low normal. Therefore I'll start the patient on the vitamin B12 1000 g daily. * Folate is more than 24 which is normal. Patient is also on folic acid 1 mg daily which was started by the primary team. * Patient hemoglobin A1c is 4.9 is considered normal. * PT and OT. * I also recommend Sugar scan as outpatient for this possible Parkinsonism. Regarding the patient left footdrop consider getting EMG with nerve conduction as an outpatient. I also recommend that MRI the cervical spine as an outpatient. * Patient needs to follow-up with a neurologist in outpatient within 2 weeks. Time with Patient: Less than 30
[2020-07-29] MEDS ORDERED: Potassium Replacement Protocol 1 EACH MISC MISCELLANE PRN (16:58)
--- NOTE | 2020-07-29 17:01 | P.PN ---
Subjective Progress Note Date: 07/29/20 This is an 89-year-old male who was recently admitted with possible acute urinary tract infection with sepsis and is being closely monitored. Urine cultures have been negative and patient is maintained on Zosyn and will continue at this time. Infectious disease is following. Patient continues to be con fused and weak and PT/OT following recommending 24-hour care or subacute rehab and patient does reside at [facility]. Will discuss with social work about discharge planning needs. Most recent d-dimer was elevated although multiple Covid 19 testings have been negative. Patient is currently maintaining 92% on 4 L via nasal cannula. No reports of chest pain or shortness of breath. Patient continues to be confused. Patient is afebrile. Will continue to monitor closely. Neurology has also seen and evaluated the patient recommending outpatient follow-up for further EMG testing related to the left foot drop. 07/29/2020 Patient is seen and evaluated and follow-up and is currently maintained on IV antibiotics in the form of Zosyn and will continue at this time. The urine cultures thus far remain negative although currently pending on finalization. Patient having multiple episodes of diarrhea and is currently being tested for C. diff which is pending at this time. Patient is awake although slightly confused at times. Patient continues to be weak requiring assistance with álvaro pinon. She is currently on 2 L via nasal cannula and oxygen saturation is 92%. Potassium is found to be 3.1 and will replace. Will repeat a.m. labs. Patient is maintained on dexamethasone along with Lovenox and vitamin supplements along with zinc and will continue at this time. Review of systems: Unable to obtain as patient remains confused Active Medications Acetaminophen (Acetaminophen Tab 325 Mg Tab) 650 mg PO Q4HR PRN PRN Reason: Fever and/ or Pain Last Admin: 07/28/20 19:11 Dose: 650 mg Documented by: Hydrocodone Bitart/Acetaminophen (Hydrocodone/Apap 5-325mg 1 Each Tab) 1 each PO Q6HR PRN PRN Reason: Pain Albuterol/Ipratropium (Ipratropium-Albuterol 3 Ml Neb) 3 ml INHALATION RT-Q4H PRN PRN Reason: shortness of breath Last Admin: 07/28/20 08:30 Dose: 3 ml Documented by: Alprazolam (Alprazolam 0.25 Mg Tab) 0.25 mg PO TID PRN PRN Reason: Anxiety Last Admin: 07/24/20 05:42 Dose: 0.25 mg Documented by: Ascorbic Acid (Ascorbic Acid 500 Mg Tab) 500 mg PO BID [facility] Last Admin: 07/29/20 08:49 Dose: 500 mg Documented by: Aspirin (Aspirin 81 Mg) 81 mg PO DAILY [facility] Last Admin: 07/29/20 08:57 Dose: 81 mg Documented by: Atorvastatin Calcium (Atorvastatin 40 Mg Tab) 40 mg PO HS [facility] Last Admin: 07/28/20 20:00 Dose: 40 mg Documented by: Carbidopa/Levodopa (Carbidopa-Levodopa 25-100 Mg 1 Each Tab) 1 each PO BID [facility] Last Admin: 07/29/20 08:57 Dose: 1 each Documented by: Cholecalciferol (Cholecalciferol 1,000 Unit Tab) 2,000 unit PO DAILY [facility] Last Admin: 07/29/20 08:49 Dose: 2,000 unit Documented by: Citalopram Hydrobromide (Citalopram Hydrobromide 20 Mg Tab) 20 mg PO DAILY [facility] Last Admin: 07/29/20 08:58 Dose: 20 mg Documented by: Cyanocobalamin (Cyanocobalamin 500 Mcg Tab) 1,000 mcg PO DAILY [facility] Last Admin: 07/29/20 08:49 Dose: 1,000 mcg Documented by: Dexamethasone Sodium Phosphate (Dexamethasone Sod Phosphate 10 Mg/Ml 1 Ml Vial) 6 mg IV DAILY [facility] Last Admin: 07/29/20 08:42 Dose: 6 mg Documented by: Donepezil HCl (Donepezil 10 Mg Tab) 10 mg PO DAILY [facility] Last Admin: 07/29/20 08:58 Dose: 10 mg Documented by: Enoxaparin Sodium (Enoxaparin 40 Mg/0.4 Ml Syringe) 40 mg SQ DAILY [facility] Last Admin: 07/29/20 08:47 Dose: 40 mg Documented by: Folic Acid (Folic Acid 1 Mg Tab) 1 mg PO DAILY@1200 [facility] Last Admin: 07/29/20 08:49 Dose: 1 mg Documented by: Sodium Chloride (Saline 0.9%) 1,000 mls @ 50 mls/hr IV .Q20H [facility] Last Admin: 07/29/20 03:34 Dose: 50 mls/hr Documented by: Piperacillin Sod/Tazobactam (Sod 3.375 gm/ Sodium Chloride) 100 mls @ 25 mls/hr IVPB Q8HR [facility] Last Admin: 07/29/20 15:41 Dose: 25 mls/hr Documented by: Meclizine HCl (Meclizine 12.5 Mg Tab) 12.5 mg PO TID PRN PRN Reason: Vertigo Melatonin (Melatonin 3 Mg Tablet) 3 mg PO HS [facility] Last Admin: 07/28/20 20:00 Dose: 3 mg Documented by: Miscellaneous Information (Pneumonia Protocol Utilized 1 Each Misc) 1 each PO ONCE PRN PRN Reason: Per Protocol Multivitamins (Multivitamins, Thera 1 Each Tab) 1 each PO DAILY@1200 [facility] Last Admin: 07/29/20 08:49 Dose: 1 each Documented by: Tamsulosin HCl (Tamsulosin 0.4 Mg Cap.Er.24h) 0.4 mg PO BID [facility] Last Admin: 07/29/20 08:57 Dose: 0.4 mg Documented by: Thiamine HCl (Thiamine 100 Mg Tab) 100 mg PO DAILY@1200 [facility] Last Admin: 07/29/20 08:49 Dose: 100 mg Documented by: Zinc Sulfate (Zinc Sulfate 220 Mg Cap) 220 mg PO DAILY [facility] Last Admin: 07/29/20 08:49 Dose: 220 mg Documented by: Objective - Vital Signs Vital signs: Vital Signs Temp 97.7 F 07/29/20 07:19 Pulse 55 L 07/29/20 08:00 Resp 18 07/29/20 08:00 BP 123/68 07/29/20 07:19 Pulse Ox 97 07/29/20 07:19 Intake & Output 07/28/20 07/29/20 07/29/20 18:59 06:59 18:59 Intake Total 200 Output Total 400 300 Balance -400 -100 Weight 66.5 kg Intake: Oral 200 Output: Urine 400 300 Uretheral (Barnard) 300 Other: Voiding Method Indwelling Catheter Indwelling Catheter Indwelling Catheter # Bowel Movements 1 - Exam Gen: This is a 89-year-old male sitting up in bed awake, alert and oriented 1, well-developed, well-nourished. Temp is 97.7F, pulse is 55, respirations are 18, blood pressure is 123/68, oxygen saturation is 94% on 4 L via nasal cannula. HEENT: Head is atraumatic, normocephalic. Pupils equal, round. Sclerae is anicteric. NECK: Supple. No JVD. No lymphadenopathy. No thyromegaly. LUNGS: Breath sounds diminished at the bases with a few scattered rhonchi and crackles noted. No intercostal retractions. HEART: S1, S2 are muffled ABDOMEN: Soft. Bowel sounds are present. No masses. No tenderness. EXTREMITIES: No pedal edema. No calf tenderness. NEUROLOGICAL: Patient is awake, alert and oriented x1. Confused. Diffusely weak - Labs CBC & Chem 7: 07/29/20 06:20 07/29/20 06:20 Labs: Abnormal Lab Results - Last 24 Hours (Table) 07/28/20 07/29/20 07/29/20 Range/Units 23:35 06:20 06:20 RBC 3.78 L (4.30-5.90) m/uL Hgb 10.9 L (13.0-17.5) gm/dL Hct 33.2 L (39.0-53.0) % Neutrophils # 8.1 H (1.3-7.7) k/uL Lymphocytes # 0.4 L (1.0-4.8) k/uL Potassium (3.5-5.5) mmol/L Calcium (8.7-10.3) mg/dL Lactate Dehydrogenase (120-246) U/L C-Reactive Protein (0.0-0.8) mg/dL Procalcitonin 0.30 H (0.02-0.09) ng/mL Urine Protein 2+ H (Negative) Urine Ketones Trace H (Negative) Ur Leukocyte Esterase Trace H (Negative) Urine RBC 10 H (0-5) /hpf Urine WBC 22 H (0-5) /hpf Amorphous Sediment Occasional H (None) /hpf Urine Bacteria Rare H (None) /hpf Hyaline Casts 3 H (0-2) /lpf Urine Mucus Rare H (None) /hpf 07/29/20 Range/Units 06:20 RBC (4.30-5.90) m/uL Hgb (13.0-17.5) gm/dL Hct (39.0-53.0) % Neutrophils # (1.3-7.7) k/uL Lymphocytes # (1.0-4.8) k/uL Potassium 3.1 L (3.5-5.5) mmol/L Calcium 7.6 L (8.7-10.3) mg/dL Lactate Dehydrogenase 264 H (120-246) U/L C-Reactive Protein 21.7 H (0.0-0.8) mg/dL Procalcitonin (0.02-0.09) ng/mL Urine Protein (Negative) Urine Ketones (Negative) Ur Leukocyte Esterase (Negative) Urine RBC (0-5) /hpf Urine WBC (0-5) /hpf Amorphous Sediment (None) /hpf Urine Bacteria (None) /hpf Hyaline Casts (0-2) /lpf Urine Mucus (None) /hpf Microbiology - Last 24 Hours (Table) 07/28/20 23:35 Urine Culture - Preliminary Urine,Voided 07/24/20 16:43 Blood Culture - Preliminary Blood No Growth after 96 hours 07/25/20 15:22 Blood Culture - Preliminary Blood No Growth after 72 hours 07/27/20 14:27 Blood Culture - Preliminary Blood No Growth after 24 hours 07/27/20 14:12 Blood Culture - Preliminary Blood No Growth after 24 hours Assessment and Plan Assessment: Acute urinary tract infection with possible sepsis, present on admission with possible indwelling Barnard catheter. 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 Patient is maintained on IV antibiotics in the form of Zosyn and will continue at this time. Urine cultures are negative. Repeat urine cultures pending. She is having multiple episodes of diarrhea and will send sample to test for C. diff. Currently pending. Multiple medical consultations following including i nfectious disease. Due to multiple complex medical issues, prognosis is guarded. Case management and social work following working on ECF placement for continued PT/OT therapy. Patient's potassium was found to be 3.1 and will replace. Will repeat a.m. labs. Further recommendations to follow. Possible discharge in 24-48 hours.
[2020-07-29] MEDS: POTASSIUM CHLORIDE ER 20 MEQ TAB.ER PO SCH ×2 (18:07→20:55)
[2020-07-29] MEDS: ATORVASTATIN 40 MG TAB PO SCH (20:55)
[2020-07-29] MEDS: MELATONIN 3 MG TABLET PO SCH (20:55)
[2020-07-30 08:07] LABS: Basophils % (A) 0 %; Eosinophils % (A) 0 %; HCT 30.8 % (39.0-53.0); HGB 9.8 gm/dL (13.0-17.5); Lymphocytes # (A) 0.7 k/uL (1.0-4.8); Lymphocytes % (A) 5 %; MCH 27.9 pg (25.0-35.0); MCHC 31.9 g/dL (31.0-37.0); MCV 87.5 fL (80.0-100.0); Mean Platelet Volume 7.5; Monocytes # (A) 0.4 k/uL (0-1.0); Monocytes % (A) 3 %; Neutrophils # (A) 11.1 k/uL (1.3-7.7); Neutrophils % (A) 90 %; Platelet Count 351 k/uL (150-450); RBC 3.52 m/uL (4.30-5.90); RDW 15.5 % (11.5-15.5); WBC 12.3 k/uL (3.8-10.6)
[2020-07-30 08:43] LABS: African American GFR (CKD) 51 (>60 ml/min/1.73 sqM); Anion Gap 2 mmol/L; Blood Urea Nitrogen 25 mg/dL (9-20); Calcium 7.9 mg/dL (8.4-10.2); Carbon Dioxide 26 mmol/L (22-30); Chloride 113 mmol/L (98-107); Glucose 141 mg/dL (74-99); Non-African American GFR(CKD) 44 (>60 ml/min/1.73 sqM); Sodium 141 mmol/L (137-145)
[2020-07-30] MEDS: PIPERACILLIN-TAZOBACTAM 3.375 GM in SODIUM CHLORIDE 0.9% 100 ML IVPB SCH ×2 (09:17→16:09)
[2020-07-30] MEDS: CHOLECALCIFEROL 1,000 UNIT TAB PO SCH (09:19)
[2020-07-30] MEDS: DEXAMETHASONE SOD PHOSPHATE 10 MG/ML 1 ML VIAL IV SCH (09:19)
[2020-07-30] MEDS: ASCORBIC ACID 500 MG TAB PO SCH ×2 (09:19→21:22)
[2020-07-30] MEDS: CARBIDOPA-LEVODOPA 25-100 MG 1 EACH TAB PO SCH ×2 (09:19→21:23)
[2020-07-30] MEDS: ASPIRIN 81 MG PO SCH (09:19)
[2020-07-30] MEDS: DONEPEZIL 10 MG TAB PO SCH (09:19)
[2020-07-30] MEDS: CYANOCOBALAMIN 500 MCG TAB PO SCH (09:19)
[2020-07-30] MEDS: ENOXAPARIN 40 MG/0.4 ML SYRINGE SQ SCH (09:20)
[2020-07-30] MEDS: THIAMINE 100 MG TAB PO SCH (09:20)
[2020-07-30] MEDS: TAMSULOSIN 0.4 MG CAP.ER.24H PO SCH ×2 (09:20→21:23)
[2020-07-30] MEDS: FOLIC ACID 1 MG TAB PO SCH (09:20)
[2020-07-30] MEDS: ZINC SULFATE 220 MG CAP PO SCH (09:20)
[2020-07-30] MEDS: MULTIVITAMINS, THERA 1 EACH TAB PO SCH (09:20)
[2020-07-30] MEDS ORDERED: Potassium Replacement Protocol 1 EACH MISC MISCELLANE PRN (09:27)
[2020-07-30] MEDS: POTASSIUM CHLORIDE ER 20 MEQ TAB.ER PO SCH ×2 (10:05→12:36)
--- NOTE | 2020-07-30 11:04 | CDI ---
Documentation Clarification Form Date: 07/30/2020 10:18:48 AM From: Karen Quintanilla RN CCDS Admit Date: 07/25/2020 08:38:00 AM Patient Name: Tobias Cabral Visit Number: [id number] Discharge Date: ATTENTION: The Clinical Documentation Specialists (CDI) and [facility] Coding Staff appreciate your assistance in clarifying documentation. Please respond to the clarification below the line at the bottom and electronically sign. The CDI & [facility] Coding staff will review the response and follow-up if needed. Please note: Queries are made part of the Legal Health Record. If you have any questions, please contact the author of this message via ITS. Acute urinary tract infection with possible sepsis, present on admission with possible indwelling Perez catheter. Cultures negative. History/Risk Factors: 89-year-old male presents to the ED for feeling weak over the last few days. Medical History: Dementia, DJD, Prostate disorder, history of chronic perez catheter. Clinical Indicators: Vital Signs 07/21: B/P: 152/70; HR: 72; Temp: 101.4 F Oral; RR: 18; SpO2 98% ra WBC07/22: 6.5 Urinalysis: 07/22 Leukocytosis: small; Wbc: 23; Mucus: Rare H: 07/22 Leukocytosis: Moderate; Wbc 54; Bacteria: Occasional; Mucus: Rare H: 07/28 Leukocytosis: Trace; Wbc: 22; Bacteria: Rare; Mucus: Rare H Urine Culture: 07/22: No growth after 18 hours: 07/25: No growth after 18 hours: 07/28 Culture pending. Treatment Antibiotics: 07/22: Ceftriaxone IVPB x1; 07/23 Ceftriaxone IVPB Q24H d/c 07/25; Azithromycin Ivpb x1; 07/23: Azithromycin PO Q24H d/c 07/27; 07/26: Piperacillin IVPB Please document the condition that these clinical indicators signify, whether Present on Admission, and cause if known: UTI due to perez catheter UTI not due to perez catheter UTI ruled out Other, please specify Unable to determine (Last Revision: April 2017) UTI due to perez catheter MTDD
--- NOTE | 2020-07-30 14:01 | P.PN ---
Subjective Progress Note Date: 07/30/20 Patient was seen at bedside and has spiked a fever overnight of a max of 101.2 Fahrenheit oral the repeated the temperature today is 98.1 Fahrenheit oral. Upon seeing him he was sitting in a chair and he was accompanied with the nurse and she was assisting them with feeding.. At patient stated that he feeling well and he doesn't feel any change for last couple days. He doesn't feel any worsening of the weakness over one side or the other or denies any numbness. Regarding his vision issues he stated that he had it for months. He does not have any further resting tremor Objective - Vital Signs Vital signs: Vital Signs Temp 98.1 F 07/30/20 07:51 Pulse 104 H 07/30/20 07:51 Resp 18 07/30/20 07:51 BP 105/68 07/30/20 07:51 Pulse Ox 95 07/30/20 07:51 Intake & Output 07/29/20 07/30/20 07/30/20 18:59 06:59 18:59 Intake Total 1000 Output Total 200 800 Balance -200 200 Intake: IV 600 Sodium Chloride 0.9% 1, 600 000 ml @ 50 mls/hr IV . Q20H [facility] Rx#:[id number] Intake, IV Titration 100 Amount Piperacillin-Tazobactam 3 100 .375 gm In Sodium Chloride 0.9% 100 ml @ 25 mls/hr IVPB Q8HR [facility] Rx# :[id number] Oral 300 Output: Urine 200 800 Uretheral (Barnard) 300 Other: Voiding Method Indwelling Catheter Indwelling Catheter Indwelling Catheter - Exam GENERAL: The patient is lying in bed and is not in acute distress. NEUROLOGICAL: Higher mental function: The patient is awake, alert, oriented to self. He stated that he is in the hospital but he stated that he doesn't know the name. With options he will he correctly stated it was [facility]. He stated the year was 2000.Patient is able to follow simple commands. No aphasia and no neglect Cranial nerves: The pupils are round, equal and reactive to light. Visual santos are full confrontation of the bilateral lower field spot for the upper back could not assess because his cooperation and he was bluntly answering for bilateral upper santos. Extraocular movement is intact no nystagmus. Facial sensation is normal to touch throughout. The facial strength is normal throughout. Tongue is midline and moved [id number] without any difficulty. No dysarthria is noted. Motor: Gait is deferred because of his condition The strength patient is able to lift bilateral upper extremity above gravity as well as bilateral lower extremity above gravity and I didn't appreciate any focality except on the left ankle dorsiflexion which seems weak and I felt like the strength was probably at 2-3/5 while left lateral flexion I would say 4+ to 5 minus I felt the patient had increased tone on the left upper extremity mostly in the wrist elbow area. I also felt like he had increased tone in the left lower extremity No resting tremor is noted. Sensation: Sensation is normal to touch throughout. Reflexes (right/left): 2+ throughout except ankles are 1+ bilaterally. Plantars are downgoing bilaterally. - Labs CBC & Chem 7: 07/30/20 07:35 07/30/20 07:35 Labs: Abnormal Lab Results - Last 24 Hours (Table) 07/30/20 07/30/20 Range/Units 07:35 07:35 WBC 12.3 H (3.8-10.6) k/uL RBC 3.52 L (4.30-5.90) m/uL Hgb 9.8 L (13.0-17.5) gm/dL Hct 30.8 L (39.0-53.0) % Neutrophils # 11.1 H (1.3-7.7) k/uL Lymphocytes # 0.7 L (1.0-4.8) k/uL Potassium 3.0 L (3.5-5.1) mmol/L Chloride 113 H (98-107) mmol/L BUN 25 H (9-20) mg/dL Creatinine 1.43 H (0.66-1.25) mg/dL Glucose 141 H (74-99) mg/dL Calcium 7.9 L (8.4-10.2) mg/dL Microbiology - Last 24 Hours (Table) 07/28/20 23:35 Urine Culture - Final Urine,Voided 07/24/20 16:43 Blood Culture - Preliminary Blood No Growth after 120 hours 07/25/20 15:22 Blood Culture - Preliminary Blood No Growth after 96 hours 07/27/20 14:12 Blood Culture - Preliminary Blood No Growth after 48 hours 07/27/20 14:27 Blood Culture - Preliminary Blood No Growth after 48 hours Assessment and Plan Assessment: * Parkinsonian symptoms, possible Parkinson's disease. * Left ICA stenosis 50-69%, likely asymptomatic, as it is on the ipsilateral side of symptoms. * Left foot drop * Dementia * Pyrexia * Acute UTI * Anemia * Degenerative joint disease Plan: * Continue Sinemet 25/100, one tablet twice a day. * MRI of brain: Reported as cerebral atrophy and chronic white matter changes probably due to small vessel ischemia. No evidence of acute cortical infarct. * Carotid Doppler showed atheromatous plaquing present bilateral carotid bifurcations. Moderate narrowing between 50-69% of the left ICA origin based on the velocity. Antegrade flow in both vertebral arteries. Vascular surgery input appreciated. No surgical intervention needed. * Patient started on aspirin 81 mg daily. Started the patient on Lipitor which will also help with the carotid stenosis. * Lipid profiles triglyceride 89, cholesterol is 149, LDLs 90s 7.2, and HDL is 34. * Vitamin B12 is 272 which is considered low normal. Therefore I'll start the patient on the vitamin B12 1000 g daily. * Folate is more than 24 which is normal. Patient is also on folic acid 1 mg daily which was started by the primary team. * Patient hemoglobin A1c is 4.9 is considered normal. * PT and OT. * I also recommend Sugar scan as outpatient for this possible Parkinsonism. Regarding the patient left footdrop consider getting EMG with nerve conduction as an outpatient. I also recommend that MRI the cervical spine as an outpatient. * Patient needs to follow-up with a neurologist in outpatient within 2 weeks. * Regarding the pyrexia will defer the workup back to the primary team. There is no further neurological workup needed at this time. Neurology will sign off. Reason for consult if needed Levi Mo MD Neuro-Hospitalist Time with Patient: Less than 30
--- NOTE | 2020-07-30 14:15 | P.PN ---
Subjective Progress Note Date: 07/30/20 This is an 89-year-old male who was recently admitted with possible acute urinary tract infection with sepsis and is being closely monitored. Urine cultures have been negative and patient is maintained on Zosyn and will continue at this time. Infectious disease is following. Patient continues to be con fused and weak and PT/OT following recommending 24-hour care or subacute rehab and patient does reside at [facility]. Will discuss with social work about discharge planning needs. Most recent d-dimer was elevated although multiple Covid 19 testings have been negative. Patient is currently maintaining 92% on 4 L via nasal cannula. No reports of chest pain or shortness of breath. Patient continues to be confused. Patient is afebrile. Will continue to monitor closely. Neurology has also seen and evaluated the patient recommending outpatient follow-up for further EMG testing related to the left foot drop. 07/29/2020 Patient is seen and evaluated and follow-up and is currently maintained on IV antibiotics in the form of Zosyn and will continue at this time. The urine cultures thus far remain negative although currently pending on finalization. Patient having multiple episodes of diarrhea and is currently being tested for C. diff which is pending at this time. Patient is awake although slightly confused at times. Patient continues to be weak requiring assistance with álvaro pinon. She is currently on 2 L via nasal cannula and oxygen saturation is 92%. Potassium is found to be 3.1 and will replace. Will repeat a.m. labs. Patient is maintained on dexamethasone along with Lovenox and vitamin supplements along with zinc and will continue at this time. 07/30/2020 Patient is seen in follow-up today and is lethargic although arousable. Per nursing staff patient has been spiking fevers throughout the night. Will order influenza testing along with repeat blood cultures and a 2-D echo. Patient is maintained on IV antibiotics in the form of Zosyn and will continue. Infectious disease is following. Repeat urine cultures show no growth. C. diff testing was negative and patient's loose stools continue although have slightly improved. Patient is weak and lethargic and will require ECF for strength and mobility once stabilized and discharged. Discussed with family of CODE STATUS and patient is a no code. Patient continues to be confused although is arousa ble and has conversation. Review of systems: Unable to obtain as patient remains confused Active Medications Acetaminophen (Acetaminophen Tab 325 Mg Tab) 650 mg PO Q4HR PRN PRN Reason: Fever and/ or Pain Last Admin: 07/28/20 19:11 Dose: 650 mg Documented by: Hydrocodone Bitart/Acetaminophen (Hydrocodone/Apap 5-325mg 1 Each Tab) 1 each PO Q6HR PRN PRN Reason: Pain Last Admin: 07/30/20 01:48 Dose: 1 each Documented by: Albuterol/Ipratropium (Ipratropium-Albuterol 3 Ml Neb) 3 ml INHALATION RT-Q4H PRN PRN Reason: shortness of breath Last Admin: 07/28/20 08:30 Dose: 3 ml Documented by: Alprazolam (Alprazolam 0.25 Mg Tab) 0.25 mg PO TID PRN PRN Reason: Anxiety Last Admin: 07/24/20 05:42 Dose: 0.25 mg Documented by: Ascorbic Acid (Ascorbic Acid 500 Mg Tab) 500 mg PO BID [facility] Last Admin: 07/30/20 09:19 Dose: 500 mg Documented by: Aspirin (Aspirin 81 Mg) 81 mg PO DAILY [facility] Last Admin: 07/30/20 09:19 Dose: 81 mg Documented by: Atorvastatin Calcium (Atorvastatin 40 Mg Tab) 40 mg PO HS [facility] Last Admin: 07/29/20 20:55 Dose: 40 mg Documented by: Carbidopa/Levodopa (Carbidopa-Levodopa 25-100 Mg 1 Each Tab) 1 each PO BID [facility] Last Admin: 07/30/20 09:19 Dose: 1 each Documented by: Cholecalciferol (Cholecalciferol 1,000 Unit Tab) 2,000 unit PO DAILY [facility] Last Admin: 07/30/20 09:19 Dose: 2,000 unit Documented by: Citalopram Hydrobromide (Citalopram Hydrobromide 20 Mg Tab) 20 mg PO DAILY [facility] Last Admin: 07/29/20 08:58 Dose: 20 mg Documented by: Cyanocobalamin (Cyanocobalamin 500 Mcg Tab) 1,000 mcg PO DAILY [facility] Last Admin: 07/30/20 09:19 Dose: 1,000 mcg Documented by: Dexamethasone Sodium Phosphate (Dexamethasone Sod Phosphate 10 Mg/Ml 1 Ml Vial) 6 mg IV DAILY [facility] Last Admin: 07/30/20 09:19 Dose: 6 mg Documented by: Donepezil HCl (Donepezil 10 Mg Tab) 10 mg PO DAILY [facility] Last Admin: 07/30/20 09:19 Dose: 10 mg Documented by: Enoxaparin Sodium (Enoxaparin 40 Mg/0.4 Ml Syringe) 40 mg SQ DAILY [facility] Last Admin: 07/30/20 09:20 Dose: 40 mg Documented by: Folic Acid (Folic Acid 1 Mg Tab) 1 mg PO DAILY@1200 [facility] Last Admin: 07/30/20 09:20 Dose: 1 mg Documented by: Sodium Chloride (Saline 0.9%) 1,000 mls @ 50 mls/hr IV .Q20H [facility] Last Admin: 07/29/20 23:17 Dose: Not Given Documented by: Piperacillin Sod/Tazobactam (Sod 3.375 gm/ Sodium Chloride) 100 mls @ 25 mls/hr IVPB Q8HR [facility] Last Admin: 07/30/20 09:17 Dose: 25 mls/hr Documented by: Meclizine HCl (Meclizine 12.5 Mg Tab) 12.5 mg PO TID PRN PRN Reason: Vertigo Melatonin (Melatonin 3 Mg Tablet) 3 mg PO HS [facility] Last Admin: 07/29/20 20:55 Dose: 3 mg Documented by: Miscellaneous Information (Pneumonia Protocol Utilized 1 Each Misc) 1 each PO ONCE PRN PRN Reason: Per Protocol Miscellaneous Information (Potassium Replacement Protocol 1 Each Misc) 1 each MISCELLANE DAILY PRN; Protocol PRN Reason: Per Protocol Miscellaneous Information (Potassium Replacement Protocol 1 Each Misc) 1 each MISCELLANE DAILY PRN; Protocol PRN Reason: Per Protocol Multivitamins (Multivitamins, Thera 1 Each Tab) 1 each PO DAILY@1200 [facility] Last Admin: 07/30/20 09:20 Dose: 1 each Documented by: Tamsulosin HCl (Tamsulosin 0.4 Mg Cap.Er.24h) 0.4 mg PO BID [facility] Last Admin: 07/30/20 09:20 Dose: 0.4 mg Documented by: Thiamine HCl (Thiamine 100 Mg Tab) 100 mg PO DAILY@1200 [facility] Last Admin: 07/30/20 09:20 Dose: 100 mg Documented by: Zinc Sulfate (Zinc Sulfate 220 Mg Cap) 220 mg PO DAILY [facility] Last Admin: 07/30/20 09:20 Dose: 220 mg Documented by: Objective - Vital Signs Vital signs: Vital Signs Temp 98.1 F 07/30/20 07:51 Pulse 104 H 07/30/20 07:51 Resp 18 07/30/20 07:51 BP 105/68 07/30/20 07:51 Pulse Ox 95 07/30/20 07:51 Intake & Output 07/29/20 07/30/20 07/30/20 18:59 06:59 18:59 Intake Total 1000 Output Total 200 800 Balance -200 200 Intake: IV 600 Sodium Chloride 0.9% 1, 600 000 ml @ 50 mls/hr IV . Q20H ALESHA Rx#:[id number] Intake, IV Titration 100 Amount Piperacillin-Tazobactam 3 100 .375 gm In Sodium Chloride 0.9% 100 ml @ 25 mls/hr IVPB Q8HR ALESHA Rx# :[id number] Oral 300 Output: Urine 200 800 Uretheral (Barnard) 300 Other: Voiding Method Indwelling Catheter Indwelling Catheter Indwelling Catheter - Exam Gen: This is a 89-year-old male lying in bed awake, alert and oriented 1, well- developed, well-nourished. Temp is 98.1F, pulse is 104, respirations are 18, blood pressure is 105/68, oxygen saturation is 95% on 2-3 L via nasal cannula. HEENT: Head is atraumatic, normocephalic. Pupils equal, round. Sclerae is anicteric. NECK: Supple. No JVD. No lymphadenopathy. No thyromegaly. LUNGS: Breath sounds diminished at the bases with a few scattered rhonchi and crackles noted. No intercostal retractions. HEART: S1, S2 are muffled ABDOMEN: Soft. Bowel sounds are present. No masses. No tenderness. EXTREMITIES: No pedal edema. No calf tenderness. NEUROLOGICAL: Patient is awake, alert and oriented x1. Confused. Diffusely weak - Labs CBC & Chem 7: 07/30/20 07:35 07/30/20 07:35 Labs: Abnormal Lab Results - Last 24 Hours (Table) 07/30/20 07/30/20 Range/Units 07:35 07:35 WBC 12.3 H (3.8-10.6) k/uL RBC 3.52 L (4.30-5.90) m/uL Hgb 9.8 L (13.0-17.5) gm/dL Hct 30.8 L (39.0-53.0) % Neutrophils # 11.1 H (1.3-7.7) k/uL Lymphocytes # 0.7 L (1.0-4.8) k/uL Potassium 3.0 L (3.5-5.1) mmol/L Chloride 113 H (98-107) mmol/L BUN 25 H (9-20) mg/dL Creatinine 1.43 H (0.66-1.25) mg/dL Glucose 141 H (74-99) mg/dL Calcium 7.9 L (8.4-10.2) mg/dL Microbiology - Last 24 Hours (Table) 07/28/20 23:35 Urine Culture - Final Urine,Voided 07/24/20 16:43 Blood Culture - Preliminary Blood No Growth after 120 hours 07/25/20 15:22 Blood Culture - Preliminary Blood No Growth after 96 hours 07/27/20 14:12 Blood Culture - Preliminary Blood No Growth after 48 hours 07/27/20 14:27 Blood Culture - Preliminary Blood No Growth after 48 hours Assessment and Plan Assessment: Acute urinary tract infection with possible sepsis, present on admission with possible indwelling Barnard catheter. 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 Patient is maintained on IV antibiotics in the form of Zosyn and will continue a t this time. Urine and blood cultures remain negative. Repeat urine cultures also negative. Patient continues to have fevers and will order influenza, 2-D echo, and repeat blood cultures. Patient continues to have loose stools although slightly improved from yesterday. C. diff testing was negative. Multiple medical consultations following including infectious disease. Due to multiple complex medical issues, prognosis is guarded. Case management and social work following working on ECF placement for continued PT/OT therapy. Patient's potassium was found to be 3.0 and will replace. Will repeat a.m. labs. Further recommendations to follow.
--- NOTE | 2020-07-30 17:37 | ECHOF ---
Referral Reason:fevers, pneumonia, infection MEASUREMENTS -------- HEIGHT: 172.7 cm WEIGHT: 66.2 kg BP: 105/68 RVIDd: 3.8 cm (< 3.3) IVSd: 1.3 cm (0.6 - 1.1) LVIDd: 4.9 cm (3.9 - 5.3) LVPWd: 1.3 cm (0.6 - 1.1) IVSs: 2.0 cm LVIDs: 3.4 cm LVPWs: 1.7 cm LA Diam: 4.2 cm (2.7 - 3.8) Ao Diam: 3.7 cm (2.0 - 3.7) AV Cusp: 1.8 cm (1.5 - 2.6) MV EXCURSION: 14.126 mm (> 18.000) MV EF SLOPE: 116 mm/s (70 - 150) EPSS: 0.9 cm RAP: 5.00 mmHg RVSP: 25.19 mmHg FINDINGS -------- This was a technically difficult study with suboptimal views. The left ventricular size is normal. There is mild concentric left ventricular hypertrophy. Overa ll left ventricular systolic function is normal with, an EF between 55 - 60 %. The right ventricle is mild to moderately enlarged. The left atrium is mildly dilated. The right atrium is normal in size. 5.0mg of Lumason was utilized for enhancement of images Interatrial and interventricular septum intact. Aortic valve is trileaflet and is mildly thickened. The mitral valve leaflets are mildly thickened. There is trace to mild mitral regurgitation. Mild tricuspid regurgitation present. Right ventricular systolic pressure is normal at < 35 mmHg. The pulmonic valve was not well visualized. The aortic root size is normal. Normal inferior vena cava with normal inspiratory collapse consistent with estimated right atrial pre ssure of 5 mmHg. The inferior vena cava is mildly dilated. There is no pericardial effusion. CONCLUSIONS -------- 1. The left ventricular size is normal. 2. There is mild concentric left ventricular hypertrophy. 3. Overall left ventricular systolic function is normal with, an EF between 55 - 60 %. 4. The right ventricle is mild to moderately enlarged. 5. The left atrium is mildly dilated. 6. 5.0mg of Lumason was utilized for enhancement of images 7. Aortic valve is trileaflet and is mildly thickened. 8. The mitral valve leaflets are mildly thickened. 9. There is trace to mild mitral regurgitation. 10. Mild tricuspid regurgitation present. 11. The inferior vena cava is mildly dilated. 12. There is no pericardial effusion. SCHOOL COORDINATOR: NEL Gleason
[2020-07-30] MEDS ORDERED: POTASSIUM CHLORIDE ER 20 MEQ TAB.ER PO STA (19:55)
[2020-07-30] MEDS: SODIUM CHLORIDE 0.9% 1,000 ML IV SCH (21:22)
[2020-07-30] MEDS: MELATONIN 3 MG TABLET PO SCH (21:23)
[2020-07-30] MEDS: ATORVASTATIN 40 MG TAB PO SCH (21:23)
--- NOTE | 2020-07-30 23:20 | PN ---
PROGRESS NOTE DATE OF SERVICE: 07/30/2020 REASON FOR FOLLOWUP: Aspiration pneumonia. INTERVAL HISTORY: The patient did spike another fever last night of 101.2. The patient afebrile since then. The patient is slightly more awake, alert, has been breathing comfortably, is currently 97% on room air. No chest pain. Minimal cough. No abdominal pain and no diarrhea has been reported. PHYSICAL EXAMINATION: Blood pressure 120/71 with a pulse of 90, temperature is 97.7. He is 97% on room air. General description is an elderly male up in the bed in no distress. Respiratory system: Unlabored breathing with decreased breath sounds in the base, with no wheeze. Heart S1, S2. Regular rate and rhythm. ABDOMEN: Soft, no tenderness. EXTREMITIES: No edema of the feet. LABS: White count mildly elevated. Culture has been negative. DIAGNOSTIC IMPRESSION AND PLAN: Patient with fever. Concern for recurrent aspiration. Still waiting for swallow evaluation. Other workup so far negative in this patient with influenza. Garvin PCR negative. Stool for C difficile was negative as well and urine culture and Legionella is negative. The patient to continue Zosyn. Await swallow evaluation and monitor his clinical course closely. Continue supportive care. MMODL / IJN: [id number] /
[2020-07-31] MEDS: PIPERACILLIN-TAZOBACTAM 3.375 GM in SODIUM CHLORIDE 0.9% 100 ML IVPB SCH ×4 (00:08→23:06)
[2020-07-31 06:58] LABS: Basophils % (A) 0 %; Eosinophils % (A) 0 %; HGB 10.7 gm/dL (13.0-17.5); Hypochromasia Slight; Lymphocytes # (A) 0.6 k/uL (1.0-4.8); Lymphocytes % (A) 5 %; MCH 29.4 pg (25.0-35.0); MCHC 33.4 g/dL (31.0-37.0); Mean Platelet Volume 7.4; Monocytes # (A) 0.5 k/uL (0-1.0); Monocytes % (A) 3 %; Neutrophils # (A) 12.1 k/uL (1.3-7.7); Neutrophils % (A) 91 %; Platelet Count 348 k/uL (150-450); RBC 3.63 m/uL (4.30-5.90); RDW 15.3 % (11.5-15.5); WBC 13.3 k/uL (3.8-10.6)
[2020-07-31] MEDS: ENOXAPARIN 40 MG/0.4 ML SYRINGE SQ SCH (09:05)
[2020-07-31] MEDS: TAMSULOSIN 0.4 MG CAP.ER.24H PO SCH ×2 (09:06→20:30)
[2020-07-31] MEDS: DEXAMETHASONE SOD PHOSPHATE 10 MG/ML 1 ML VIAL IV SCH (09:06)
[2020-07-31] MEDS: ASCORBIC ACID 500 MG TAB PO SCH ×2 (09:06→20:30)
[2020-07-31] MEDS: CARBIDOPA-LEVODOPA 25-100 MG 1 EACH TAB PO SCH ×2 (09:06→20:30)
[2020-07-31] MEDS: CHOLECALCIFEROL 1,000 UNIT TAB PO SCH (09:06)
[2020-07-31] MEDS: ASPIRIN 81 MG PO SCH (09:06)
[2020-07-31] MEDS: ZINC SULFATE 220 MG CAP PO SCH (09:06)
[2020-07-31] MEDS: CITALOPRAM HYDROBROMIDE 20 MG TAB PO SCH (09:06)
[2020-07-31] MEDS: CYANOCOBALAMIN 500 MCG TAB PO SCH (09:06)
[2020-07-31] MEDS: MULTIVITAMINS, THERA 1 EACH TAB PO SCH (09:07)
[2020-07-31] MEDS: DONEPEZIL 10 MG TAB PO SCH (09:07)
[2020-07-31 10:11] LABS: African American GFR (CKD) 56.5 (60.0-200.0); Anion Gap 5.5 mmol/L (4.00-12.00); BUN/Creat Ratio 22.31 Ratio (12.00-20.00); C Reactive Protein 10.7 mg/dL (0.0-0.8); Calcium 8.1 mg/dL (8.7-10.3); Carbon Dioxide 25.5 mmol/L (21.6-31.8); Non-African American GFR(CKD) 48.7 (60.0-200.0); Potassium 3.9 mmol/L (3.5-5.5)
--- NOTE | 2020-07-31 10:37 | XR ---
EXAMINATION TYPE: XR chest 1V portable DATE OF EXAM: 07/31/2020 COMPARISON: 07/29/2020 INDICATION: Short of breath TECHNIQUE: Single frontal view of the chest is obtained. FINDINGS: The heart size is normal. The pulmonary vasculature is normal. Mild infiltrates to the right midlung and left lower lung field. Findings have improved over the inte rval. IMPRESSION: 1. Improving bilateral lung infiltrates.
[2020-07-31] MEDS: THIAMINE 100 MG TAB PO SCH (13:29)
[2020-07-31] MEDS: FOLIC ACID 1 MG TAB PO SCH (13:29)
--- NOTE | 2020-07-31 14:27 | P.PN ---
Subjective Progress Note Date: 07/31/20 This is an 89-year-old male who was recently admitted with possible acute urinary tract infection with sepsis and is being closely monitored. Urine cultures have been negative and patient is maintained on Zosyn and will continue at this time. Infectious disease is following. Patient continues to be con fused and weak and PT/OT following recommending 24-hour care or subacute rehab and patient does reside at [facility]. Will discuss with social work about discharge planning needs. Most recent d-dimer was elevated although multiple Covid 19 testings have been negative. Patient is currently maintaining 92% on 4 L via nasal cannula. No reports of chest pain or shortness of breath. Patient continues to be confused. Patient is afebrile. Will continue to monitor closely. Neurology has also seen and evaluated the patient recommending outpatient follow-up for further EMG testing related to the left foot drop. 07/29/2020 Patient is seen and evaluated and follow-up and is currently maintained on IV antibiotics in the form of Zosyn and will continue at this time. The urine cultures thus far remain negative although currently pending on finalization. Patient having multiple episodes of diarrhea and is currently being tested for C. diff which is pending at this time. Patient is awake although slightly confused at times. Patient continues to be weak requiring assistance with álvaro pinon. She is currently on 2 L via nasal cannula and oxygen saturation is 92%. Potassium is found to be 3.1 and will replace. Will repeat a.m. labs. Patient is maintained on dexamethasone along with Lovenox and vitamin supplements along with zinc and will continue at this time. 07/30/2020 Patient is seen in follow-up today and is lethargic although arousable. Per nursing staff patient has been spiking fevers throughout the night. Will order influenza testing along with repeat blood cultures and a 2-D echo. Patient is maintained on IV antibiotics in the form of Zosyn and will continue. Infectious disease is following. Repeat urine cultures show no growth. C. diff testing was negative and patient's loose stools continue although have slightly improved. Patient is weak and lethargic and will require ECF for strength and mobility once stabilized and discharged. Discussed with family of CODE STATUS and patient is a no code. Patient continues to be confused although is arousa ble and has conversation. 07/31/2020 Patient is seen in follow-up today and continues to be closely monitored. Patient being followed by infectious disease as patient remains on IV antibiotics in the form of Zosyn. Urine and blood cultures have been negative. Patient also had influenza and C. diff testing which as been negative. Patient's diarrhea has improved. Patient continues to have poor oral intake and needs encouragement with one-to-one supervision and maintaining aspiration precautions. Discussed with nursing staff about continuing to encourage oral intake patient states he does not have much of an appetite. Patient continues to have a cough and was placed on 1 L of oxygen via nasal cannula and a chest x- ray was obtained. Chest x-ray shows improving bilateral lung infiltrates. Sodium was found to be elevated at 148 and gentle IV fluids discontinued and will switch to D5 in water at 50 mL per hour. Potassium improved and is currently 3.9. White blood count remains at 13.3 and hemoglobin is 10.7. Pro- calcitonin is also elevated at 0.18 although this is improved from previous. CRP trending down as well. Creatinine is 1.3. Patient continues to be slightly confused although appears more alert and oriented today and sitting up in the chair. Review of systems: Constitutional: Reports fatigue Cardiovascular: No reports of chest pain or palpitations Respiratory: No reports of shortness of breath, reports cough GI: No reports of nausea, vomiting, or diarrhea : No reports of dysuria or retention Neurovascular: Reports weakness All medications have been reviewed Active Medications Acetaminophen (Acetaminophen Tab 325 Mg Tab) 650 mg PO Q4HR PRN PRN Reason: Fever and/ or Pain Last Admin: 07/28/20 19:11 Dose: 650 mg Documented by: Hydrocodone Bitart/Acetaminophen (Hydrocodone/Apap 5-325mg 1 Each Tab) 1 each PO Q6HR PRN PRN Reason: Pain Last Admin: 07/30/20 01:48 Dose: 1 each Documented by: Albuterol/Ipratropium (Ipratropium-Albuterol 3 Ml Neb) 3 ml INHALATION RT-Q4H PRN PRN Reason: shortness of breath Last Admin: 07/28/20 08:30 Dose: 3 ml Documented by: Alprazolam (Alprazolam 0.25 Mg Tab) 0.25 mg PO TID PRN PRN Reason: Anxiety Last Admin: 07/24/20 05:42 Dose: 0.25 mg Documented by: Ascorbic Acid (Ascorbic Acid 500 Mg Tab) 500 mg PO BID [facility] Last Admin: 07/31/20 09:06 Dose: 500 mg Documented by: Aspirin (Aspirin 81 Mg) 81 mg PO DAILY [facility] Last Admin: 07/31/20 09:06 Dose: 81 mg Documented by: Atorvastatin Calcium (Atorvastatin 40 Mg Tab) 40 mg PO HS [facility] Last Admin: 07/30/20 21:23 Dose: 40 mg Documented by: Carbidopa/Levodopa (Carbidopa-Levodopa 25-100 Mg 1 Each Tab) 1 each PO BID [facility] Last Admin: 07/31/20 09:06 Dose: 1 each Documented by: Cholecalciferol (Cholecalciferol 1,000 Unit Tab) 2,000 unit PO DAILY [facility] Last Admin: 07/31/20 09:06 Dose: 2,000 unit Documented by: Citalopram Hydrobromide (Citalopram Hydrobromide 20 Mg Tab) 20 mg PO DAILY [facility] Last Admin: 07/31/20 09:06 Dose: 20 mg Documented by: Cyanocobalamin (Cyanocobalamin 500 Mcg Tab) 1,000 mcg PO DAILY [facility] Last Admin: 07/31/20 09:06 Dose: 1,000 mcg Documented by: Dexamethasone Sodium Phosphate (Dexamethasone Sod Phosphate 10 Mg/Ml 1 Ml Vial) 6 mg IV DAILY [facility] Last Admin: 07/31/20 09:06 Dose: 6 mg Documented by: Donepezil HCl (Donepezil 10 Mg Tab) 10 mg PO DAILY [facility] Last Admin: 07/31/20 09:07 Dose: 10 mg Documented by: Enoxaparin Sodium (Enoxaparin 40 Mg/0.4 Ml Syringe) 40 mg SQ DAILY [facility] Last Admin: 07/31/20 09:05 Dose: 40 mg Documented by: Folic Acid (Folic Acid 1 Mg Tab) 1 mg PO DAILY@1200 [facility] Last Admin: 07/31/20 13:29 Dose: 1 mg Documented by: Piperacillin Sod/Tazobactam (Sod 3.375 gm/ Sodium Chloride) 100 mls @ 25 mls/hr IVPB Q8HR [facility] Last Admin: 07/31/20 09:06 Dose: 25 mls/hr Documented by: Dextrose/Water (Dextrose 5%-Water Iv Soln) 1,000 mls @ 50 mls/hr IV .Q20H [facility] Meclizine HCl (Meclizine 12.5 Mg Tab) 12.5 mg PO TID PRN PRN Reason: Vertigo Melatonin (Melatonin 3 Mg Tablet) 3 mg PO HS [facility] Last Admin: 07/30/20 21:23 Dose: 3 mg Documented by: Miscellaneous Information (Pneumonia Protocol Utilized 1 Each Misc) 1 each PO ONCE PRN PRN Reason: Per Protocol Miscellaneous Information (Potassium Replacement Protocol 1 Each Misc) 1 each MISCELLANE DAILY PRN; Protocol PRN Reason: Per Protocol Miscellaneous Information (Potassium Replacement Protocol 1 Each Misc) 1 each MISCELLANE DAILY PRN; Protocol PRN Reason: Per Protocol Multivitamins (Multivitamins, Thera 1 Each Tab) 1 each PO DAILY@1200 [facility] Last Admin: 07/31/20 09:07 Dose: 1 each Documented by: Tamsulosin HCl (Tamsulosin 0.4 Mg Cap.Er.24h) 0.4 mg PO BID [facility] Last Admin: 07/31/20 09:06 Dose: 0.4 mg Documented by: Thiamine HCl (Thiamine 100 Mg Tab) 100 mg PO DAILY@1200 [facility] Last Admin: 07/31/20 13:29 Dose: 100 mg Documented by: Zinc Sulfate (Zinc Sulfate 220 Mg Cap) 220 mg PO DAILY [facility] Last Admin: 07/31/20 09:06 Dose: 220 mg Documented by: Objective - Vital Signs Vital signs: Vital Signs Temp 98.3 F 07/31/20 08:03 Pulse 102 H 07/31/20 08:03 Resp 14 07/31/20 08:03 BP 132/80 07/31/20 08:03 Pulse Ox 94 L 07/31/20 08:03 Intake & Output 07/30/20 07/31/20 07/31/20 18:59 06:59 18:59 Intake Total 240 900 Output Total 500 750 Balance -260 150 Intake: IV 600 Sodium Chloride 0.9% 1, 600 000 ml @ 50 mls/hr IV . Q20H [facility] Rx#:[id number] Intake, IV Titration 100 Amount Piperacillin-Tazobactam 3 100 .375 gm In Sodium Chloride 0.9% 100 ml @ 25 mls/hr IVPB Q8HR [facility] Rx# :[id number] Oral 240 200 Output: Urine 500 750 Other: Voiding Method Indwelling Catheter Indwelling Catheter Indwelling Catheter # Voids 3 # Bowel Movements 2 1 - Exam Gen: This is a 89-year-old male sitting up in the chair, awake, alert and oriented 1, well-developed, well-nourished. Temp is 98.3F, pulse is 102, respirations are 14, blood pressure is 132/80, oxygen saturation is 94% on 1 L via nasal cannula. HEENT: Head is atraumatic, normocephalic. Pupils equal, round. Sclerae is anicteric. NECK: Supple. No JVD. No lymphadenopathy. No thyromegaly. LUNGS: Breath sounds diminished at the bases with a few scattered rhonchi and crackles noted. No intercostal retractions. HEART: S1, S2 are muffled ABDOMEN: Soft. Bowel sounds are present. No masses. No tenderness. EXTREMITIES: No pedal edema. No calf tenderness. NEUROLOGICAL: Patient is awake, alert and oriented x1. Confused. Diffusely weak - Labs CBC & Chem 7: 07/31/20 06:15 07/31/20 06:15 Labs: Abnormal Lab Results - Last 24 Hours (Table) 07/30/20 07/31/20 07/31/20 Range/Units 14:14 06:15 06:15 WBC 13.3 H (3.8-10.6) k/uL RBC 3.63 L (4.30-5.90) m/uL Hgb 10.7 L (13.0-17.5) gm/dL Hct 32.0 L (39.0-53.0) % Neutrophils # 12.1 H (1.3-7.7) k/uL Lymphocytes # 0.6 L (1.0-4.8) k/uL Sodium 148 H (135-145) mmol/L Potassium 3.1 L (3.5-5.5) mmol/L Chloride 117 H (96-109) mmol/L BUN 29.0 H (9.0-27.0) mg/dL Est GFR (CKD-EPI)AfAm 56.5 L (60.0-200.0) Est GFR (CKD-EPI)NonAf 48.7 L (60.0-200.0) BUN/Creatinine Ratio 22.31 H (12.00-20.00) Ratio Glucose 122 H (70-110) mg/dL Calcium 8.1 L (8.7-10.3) mg/dL C-Reactive Protein 10.7 H (0.0-0.8) mg/dL Procalcitonin (0.02-0.09) ng/mL 07/31/20 Range/Units 06:15 WBC (3.8-10.6) k/uL RBC (4.30-5.90) m/uL Hgb (13.0-17.5) gm/dL Hct (39.0-53.0) % Neutrophils # (1.3-7.7) k/uL Lymphocytes # (1.0-4.8) k/uL Sodium (135-145) mmol/L Potassium (3.5-5.5) mmol/L Chloride (96-109) mmol/L BUN (9.0-27.0) mg/dL Est GFR (CKD-EPI)AfAm (60.0-200.0) Est GFR (CKD-EPI)NonAf (60.0-200.0) BUN/Creatinine Ratio (12.00-20.00) Ratio Glucose (70-110) mg/dL Calcium (8.7-10.3) mg/dL C-Reactive Protein (0.0-0.8) mg/dL Procalcitonin 0.18 H (0.02-0.09) ng/mL Microbiology - Last 24 Hours (Table) 07/24/20 16:43 Blood Culture - Final Blood No Growth after 144 hours 07/25/20 15:22 Blood Culture - Preliminary Blood No Growth after 120 hours 07/27/20 14:27 Blood Culture - Preliminary Blood No Growth after 72 hours 07/27/20 14:12 Blood Culture - Preliminary Blood No Growth after 72 hours 07/28/20 23:35 Urine Culture - Final Urine,Voided Assessment and Plan Assessment: Acute urinary tract infection with possible sepsis, present on admission with possible indwelling Barnard catheter. 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 Patient is maintained on IV antibiotics in the form of Zosyn and will continue at this time. Urine and blood cultures remain negative. Repeat urine cultures also negative. Patient continued to have fevers and influenza testing is negative, 2-D echo was also done showing mild concentric left ventricular hypertrophy with overall LV systolic function is normal with an EF between 55 and 60%. C. diff testing was negative. Multiple medical consultations following including infectious disease. Due to multiple complex medical issues, prognosis is guarded. Case management and social work following working on ECF placement for continued PT/OT therapy. Patient's potassium has improved and is 3.8 although sodium is found to be elevated at 148 and will transition IV fluids to D5 and water at 50 mL per hour. Will repeat a.m. labs. Further recommendations to follow.
[2020-07-31] MEDS: DEXTROSE 5% IN WATER 1,000 ML IV SCH (16:40)
--- NOTE | 2020-07-31 18:00 | PN ---
PROGRESS NOTE DATE OF SERVICE: 07/31/2020 REASON FOR FOLLOWUP: Fever, likely aspiration pneumonia. The patient is currently afebrile. No fever in the last 24 hours. The patient seems slightly more awake and alert. He is breathing comfortably. No chest pain. Occasional cough. No abdominal pain or diarrhea. PHYSICAL EXAMINATION: Blood pressure 132/80 with a pulse of 102. Temperature 98.3. He is 94% on 1 L nasal cannula. General description is an elderly male lying in bed in no distress. Respiratory system: Unlabored breathing, decreased breath sounds in the bases. No wheeze. Heart S1, S2. Regular rate and rhythm. ABDOMEN: Soft, no tenderness. LABS: Hemoglobin is 10.7, white count 13.2, BUN of 29, creatinine 1.3. DIAGNOSTIC IMPRESSION AND PLAN: Patient with fever, source likely pneumonia, clinically responding to the Zosyn. Chest x-ray with improving infiltrate. Continue supportive care. MMODL / IJN: [id number] /
[2020-07-31] MEDS: ALPRAZolam 0.25 MG TAB PO PRN (20:30)
[2020-07-31] MEDS: ATORVASTATIN 40 MG TAB PO SCH (20:30)
[2020-07-31] MEDS: MELATONIN 3 MG TABLET PO SCH (20:30)
[2020-08-01] MEDS: DEXTROSE 5% IN WATER 1,000 ML IV SCH (07:54)
[2020-08-01] MEDS: ASPIRIN 81 MG PO SCH (08:05)
[2020-08-01] MEDS: DEXAMETHASONE SOD PHOSPHATE 10 MG/ML 1 ML VIAL IV SCH (08:05)
[2020-08-01] MEDS: TAMSULOSIN 0.4 MG CAP.ER.24H PO SCH ×2 (08:05→20:31)
[2020-08-01] MEDS: CYANOCOBALAMIN 500 MCG TAB PO SCH (08:05)
[2020-08-01] MEDS: CARBIDOPA-LEVODOPA 25-100 MG 1 EACH TAB PO SCH ×2 (08:05→20:30)
[2020-08-01] MEDS: DONEPEZIL 10 MG TAB PO SCH (08:05)
[2020-08-01] MEDS: ZINC SULFATE 220 MG CAP PO SCH (08:05)
[2020-08-01] MEDS: CITALOPRAM HYDROBROMIDE 20 MG TAB PO SCH (08:05)
[2020-08-01] MEDS: ENOXAPARIN 40 MG/0.4 ML SYRINGE SQ SCH (08:05)
[2020-08-01] MEDS: MULTIVITAMINS, THERA 1 EACH TAB PO SCH (08:05)
[2020-08-01] MEDS: FOLIC ACID 1 MG TAB PO SCH (08:05)
[2020-08-01] MEDS: PIPERACILLIN-TAZOBACTAM 3.375 GM in SODIUM CHLORIDE 0.9% 100 ML IVPB SCH ×2 (08:06→16:52)
[2020-08-01] MEDS: THIAMINE 100 MG TAB PO SCH (08:06)
[2020-08-01] MEDS: CHOLECALCIFEROL 1,000 UNIT TAB PO SCH (08:06)
[2020-08-01] MEDS: ASCORBIC ACID 500 MG TAB PO SCH ×2 (08:06→20:30)
[2020-08-01 08:34] LABS: Basophils # (A) 0.1 k/uL (0-0.2); Basophils % (A) 1 %; Eosinophils % (A) 0 %; HCT 32.2 % (39.0-53.0); HGB 10.5 gm/dL (13.0-17.5); Lymphocytes # (A) 0.7 k/uL (1.0-4.8); Lymphocytes % (A) 6 %; MCH 28.5 pg (25.0-35.0); MCHC 32.7 g/dL (31.0-37.0); MCV 87.1 fL (80.0-100.0); Mean Platelet Volume 7.4; Monocytes # (A) 0.4 k/uL (0-1.0); Monocytes % (A) 3 %; Neutrophils # (A) 10.4 k/uL (1.3-7.7); Neutrophils % (A) 88 %; Platelet Count 368 k/uL (150-450); RBC 3.69 m/uL (4.30-5.90); RDW 15.5 % (11.5-15.5); WBC 11.8 k/uL (3.8-10.6)
[2020-08-01 08:49] LABS: African American GFR (CKD) 60 (>60 ml/min/1.73 sqM); Anion Gap 0 mmol/L; Blood Urea Nitrogen 27 mg/dL (9-20); Calcium 8.3 mg/dL (8.4-10.2); Carbon Dioxide 27 mmol/L (22-30); Chloride 117 mmol/L (98-107); Glucose 134 mg/dL (74-99); Non-African American GFR(CKD) 52 (>60 ml/min/1.73 sqM); Potassium 3.6 mmol/L (3.5-5.1); Sodium 144 mmol/L (137-145)
--- NOTE | 2020-08-01 10:10 | P.PN ---
Subjective Progress Note Date: 08/01/20 This is an 89-year-old male who was recently admitted with possible acute urinary tract infection with sepsis and is being closely monitored. Urine cultures have been negative and patient is maintained on Zosyn and will continue at this time. Infectious disease is following. Patient continues to be con fused and weak and PT/OT following recommending 24-hour care or subacute rehab and patient does reside at [facility]. Will discuss with social work about discharge planning needs. Most recent d-dimer was elevated although multiple Covid 19 testings have been negative. Patient is currently maintaining 92% on 4 L via nasal cannula. No reports of chest pain or shortness of breath. Patient continues to be confused. Patient is afebrile. Will continue to monitor closely. Neurology has also seen and evaluated the patient recommending outpatient follow-up for further EMG testing related to the left foot drop. 07/29/2020 Patient is seen and evaluated and follow-up and is currently maintained on IV antibiotics in the form of Zosyn and will continue at this time. The urine cultures thus far remain negative although currently pending on finalization. Patient having multiple episodes of diarrhea and is currently being tested for C. diff which is pending at this time. Patient is awake although slightly confused at times. Patient continues to be weak requiring assistance with álvaro pinon. She is currently on 2 L via nasal cannula and oxygen saturation is 92%. Potassium is found to be 3.1 and will replace. Will repeat a.m. labs. Patient is maintained on dexamethasone along with Lovenox and vitamin supplements along with zinc and will continue at this time. 07/30/2020 Patient is seen in follow-up today and is lethargic although arousable. Per nursing staff patient has been spiking fevers throughout the night. Will order influenza testing along with repeat blood cultures and a 2-D echo. Patient is maintained on IV antibiotics in the form of Zosyn and will continue. Infectious disease is following. Repeat urine cultures show no growth. C. diff testing was negative and patient's loose stools continue although have slightly improved. Patient is weak and lethargic and will require ECF for strength and mobility once stabilized and discharged. Discussed with family of CODE STATUS and patient is a no code. Patient continues to be confused although is arousa ble and has conversation. 07/31/2020 Patient is seen in follow-up today and continues to be closely monitored. Patient being followed by infectious disease as patient remains on IV antibiotics in the form of Zosyn. Urine and blood cultures have been negative. Patient also had influenza and C. diff testing which as been negative. Patient's diarrhea has improved. Patient continues to have poor oral intake and needs encouragement with one-to-one supervision and maintaining aspiration precautions. Discussed with nursing staff about continuing to encourage oral intake patient states he does not have much of an appetite. Patient continues to have a cough and was placed on 1 L of oxygen via nasal cannula and a chest x- ray was obtained. Chest x-ray shows improving bilateral lung infiltrates. Sodium was found to be elevated at 148 and gentle IV fluids discontinued and will switch to D5 in water at 50 mL per hour. Potassium improved and is currently 3.9. White blood count remains at 13.3 and hemoglobin is 10.7. Pro- calcitonin is also elevated at 0.18 although this is improved from previous. CRP trending down as well. Creatinine is 1.3. Patient continues to be slightly confused although appears more alert and oriented today and sitting up in the chair. 08/01/2020 Patient is seen and evaluated in follow-up currently sitting up in bed awake alert and oriented 1 continues to be slightly confused although having more conversation each day. Patient is maintained on IV antibiotic some the form of Zosyn and will continue. Infectious disease is following. Patient sodium slightly improved today and is 144 with a potassium of 3.6 and creatinine slightly improved as well at 1.24. Will continue with D5 water at 50 mL per hour and repeat labs tomorrow. Continue to encourage oral intake and maintain current diet with supervision and aspiration precautions. Patient has remained afebrile for the last 2 days. Review of systems: Constitutional: Reports fatigue Cardiovascular: No reports of chest pain or palpitations Respiratory: No reports of shortness of breath, reports cough GI: No reports of nausea, vomiting, or diarrhea : No reports of dysuria or retention Neurovascular: Reports weakness All medications have been reviewed Active Medications Acetaminophen (Acetaminophen Tab 325 Mg Tab) 650 mg PO Q4HR PRN PRN Reason: Fever and/ or Pain Last Admin: 07/28/20 19:11 Dose: 650 mg Documented by: Hydrocodone Bitart/Acetaminophen (Hydrocodone/Apap 5-325mg 1 Each Tab) 1 each PO Q6HR PRN PRN Reason: Pain Last Admin: 07/30/20 01:48 Dose: 1 each Documented by: Albuterol/Ipratropium (Ipratropium-Albuterol 3 Ml Neb) 3 ml INHALATION RT-Q4H PRN PRN Reason: shortness of breath Last Admin: 07/28/20 08:30 Dose: 3 ml Documented by: Alprazolam (Alprazolam 0.25 Mg Tab) 0.25 mg PO TID PRN PRN Reason: Anxiety Last Admin: 07/31/20 20:30 Dose: 0.25 mg Documented by: Ascorbic Acid (Ascorbic Acid 500 Mg Tab) 500 mg PO BID [facility] Last Admin: 08/01/20 08:06 Dose: 500 mg Documented by: Aspirin (Aspirin 81 Mg) 81 mg PO DAILY [facility] Last Admin: 08/01/20 08:05 Dose: 81 mg Documented by: Atorvastatin Calcium (Atorvastatin 40 Mg Tab) 40 mg PO HS [facility] Last Admin: 07/31/20 20:30 Dose: 40 mg Documented by: Carbidopa/Levodopa (Carbidopa-Levodopa 25-100 Mg 1 Each Tab) 1 each PO BID [facility] Last Admin: 08/01/20 08:05 Dose: 1 each Documented by: Cholecalciferol (Cholecalciferol 1,000 Unit Tab) 2,000 unit PO DAILY [facility] Last Admin: 08/01/20 08:06 Dose: 2,000 unit Documented by: Citalopram Hydrobromide (Citalopram Hydrobromide 20 Mg Tab) 20 mg PO DAILY [facility] Last Admin: 08/01/20 08:05 Dose: 20 mg Documented by: Cyanocobalamin (Cyanocobalamin 500 Mcg Tab) 1,000 mcg PO DAILY [facility] Last Admin: 08/01/20 08:05 Dose: 1,000 mcg Documented by: Dexamethasone Sodium Phosphate (Dexamethasone Sod Phosphate 10 Mg/Ml 1 Ml Vial) 6 mg IV DAILY [facility] Last Admin: 08/01/20 08:05 Dose: 6 mg Documented by: Donepezil HCl (Donepezil 10 Mg Tab) 10 mg PO DAILY [facility] Last Admin: 08/01/20 08:05 Dose: 10 mg Documented by: Enoxaparin Sodium (Enoxaparin 40 Mg/0.4 Ml Syringe) 40 mg SQ DAILY [facility] Last Admin: 08/01/20 08:05 Dose: 40 mg Documented by: Folic Acid (Folic Acid 1 Mg Tab) 1 mg PO DAILY@1200 [facility] Last Admin: 08/01/20 08:05 Dose: 1 mg Documented by: Piperacillin Sod/Tazobactam (Sod 3.375 gm/ Sodium Chloride) 100 mls @ 25 mls/hr IVPB Q8HR [facility] Last Admin: 08/01/20 08:06 Dose: 25 mls/hr Documented by: Dextrose/Water (Dextrose 5%-Water Iv Soln) 1,000 mls @ 50 mls/hr IV .Q20H [facility] Last Admin: 08/01/20 07:54 Dose: 50 mls/hr Documented by: Meclizine HCl (Meclizine 12.5 Mg Tab) 12.5 mg PO TID PRN PRN Reason: Vertigo Melatonin (Melatonin 3 Mg Tablet) 3 mg PO HS [facility] Last Admin: 07/31/20 20:30 Dose: 3 mg Documented by: Miscellaneous Information (Pneumonia Protocol Utilized 1 Each Misc) 1 each PO ONCE PRN PRN Reason: Per Protocol Miscellaneous Information (Potassium Replacement Protocol 1 Each Misc) 1 each MISCELLANE DAILY PRN; Protocol PRN Reason: Per Protocol Miscellaneous Information (Potassium Replacement Protocol 1 Each Misc) 1 each MISCELLANE DAILY PRN; Protocol PRN Reason: Per Protocol Multivitamins (Multivitamins, Thera 1 Each Tab) 1 each PO DAILY@1200 [facility] Last Admin: 08/01/20 08:05 Dose: 1 each Documented by: Tamsulosin HCl (Tamsulosin 0.4 Mg Cap.Er.24h) 0.4 mg PO BID [facility] Last Admin: 08/01/20 08:05 Dose: 0.4 mg Documented by: Thiamine HCl (Thiamine 100 Mg Tab) 100 mg PO DAILY@1200 [facility] Last Admin: 08/01/20 08:06 Dose: 100 mg Documented by: Zinc Sulfate (Zinc Sulfate 220 Mg Cap) 220 mg PO DAILY [facility] Last Admin: 08/01/20 08:05 Dose: 220 mg Documented by: Objective - Vital Signs Vital signs: Vital Signs Temp 97.6 F 08/01/20 02:40 Pulse 89 08/01/20 02:40 Resp 18 08/01/20 02:40 BP 150/86 08/01/20 02:40 Pulse Ox 99 08/01/20 02:40 Intake & Output 07/31/20 08/01/20 08/01/20 18:59 06:59 18:59 Intake Total 900 Output Total 550 500 Balance 350 -500 Intake: IV 600 Sodium Chloride 0.9% 1, 600 000 ml @ 50 mls/hr IV . Q20H [facility] Rx#:[id number] Intake, IV Titration 100 Amount Piperacillin-Tazobactam 3 100 .375 gm In Sodium Chloride 0.9% 100 ml @ 25 mls/hr IVPB Q8HR [facility] Rx# :[id number] Oral 200 Output: Urine 550 500 Other: Voiding Method Indwelling Catheter Indwelling Catheter # Voids 3 # Bowel Movements 1 1 1 - Exam Gen: This is a 89-year-old male sitting up in the chair, awake, alert and oriented 1, well-developed, well-nourished. Temp is 97.3F, pulse is 70, respirations are 16, blood pressure is 135/80, oxygen saturation is 99% on 3 L via nasal cannula. HEENT: Head is atraumatic, normocephalic. Pupils equal, round. Sclerae is anicteric. NECK: Supple. No JVD. No lymphadenopathy. No thyromegaly. LUNGS: Breath sounds diminished at the bases with a few scattered rhonchi and crackles noted. No intercostal retractions. HEART: S1, S2 are muffled ABDOMEN: Soft. Bowel sounds are present. No masses. No tenderness. EXTREMITIES: No pedal edema. No calf tenderness. NEUROLOGICAL: Patient is awake, alert and oriented x1. Confused. Diffusely weak - Labs CBC & Chem 7: 08/01/20 08:12 08/01/20 08:12 Labs: Abnormal Lab Results - Last 24 Hours (Table) 07/31/20 07/31/20 Range/Units 06:15 06:15 Sodium 148 H (135-145) mmol/L Chloride 117 H (96-109) mmol/L BUN 29.0 H (9.0-27.0) mg/dL Est GFR (CKD-EPI)AfAm 56.5 L (60.0-200.0) Est GFR (CKD-EPI)NonAf 48.7 L (60.0-200.0) BUN/Creatinine Ratio 22.31 H (12.00-20.00) Ratio Glucose 122 H (70-110) mg/dL Calcium 8.1 L (8.7-10.3) mg/dL C-Reactive Protein 10.7 H (0.0-0.8) mg/dL Procalcitonin 0.18 H (0.02-0.09) ng/mL Microbiology - Last 24 Hours (Table) 07/25/20 15:22 Blood Culture - Final Blood No Growth after 144 hours 07/27/20 14:27 Blood Culture - Preliminary Blood No Growth after 96 hours 07/27/20 14:12 Blood Culture - Preliminary Blood No Growth after 96 hours 07/30/20 14:14 Blood Culture - Preliminary Blood No Growth after 24 hours Assessment and Plan Assessment: Acute urinary tract infection with possible sepsis, present on admission with possible indwelling Barnard catheter. 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 Patient is maintained on IV antibiotics in the form of Zosyn and will continue at this time. Patient has been afebrile for 2 days. Multiple medical consultations following including infectious disease. Due to multiple complex medical issues, prognosis is guarded. Case management and social work following working on ECF placement for continued PT/OT therapy. Patient will be going to [facility] once stabilized and discharged. Sodium slightly improved today and will continue with IV fluids of D5 and water at 50 mL per hour. Will repeat a.m. labs. Further recommendations to follow.
--- NOTE | 2020-08-01 17:46 | PN ---
PROGRESS NOTE DATE OF SERVICE: 08/01/2020 REASON FOR FOLLOWUP: Aspiration pneumonia. INTERVAL HISTORY: The patient is currently afebrile. The patient is feeling better, breathing comfortably. Denies having any chest pain or cough. No abdominal pain or any diarrhea. PHYSICAL EXAMINATION: His blood pressure is 123/83 with a pulse of 83, temperature 97.7. He is 98% on 2 L nasal cannula. General description is an elderly male lying in bed in no distress. RESPIRATORY SYSTEM: Unlabored breathing with decreased breath sounds at the base. No wheeze. HEART: S1, S2. Regular rate and rhythm. ABDOMEN: Soft. No tenderness. LABS: Hemoglobin is 10.5, white count 11.8. BUN of 27, creatinine 1.24. DIAGNOSTIC IMPRESSION AND PLAN: Patient with fever. Source is likely aspiration pneumonia. Clinical responding to Zosyn; to continue. Finish therapy with oral antibiotic / Avelox and continue supportive care. MMODL / IJN: [id number] / MTDD
[2020-08-01] MEDS: MELATONIN 3 MG TABLET PO SCH (20:30)
[2020-08-01] MEDS: ATORVASTATIN 40 MG TAB PO SCH (20:30)
[2020-08-02] MEDS: PIPERACILLIN-TAZOBACTAM 3.375 GM in SODIUM CHLORIDE 0.9% 100 ML IVPB SCH ×4 (00:16→23:45)
[2020-08-02] MEDS: DEXTROSE 5% IN WATER 1,000 ML IV SCH ×2 (03:35→16:48)
[2020-08-02 08:07] LABS: African American GFR (CKD) 63 (>60 ml/min/1.73 sqM); Anion Gap 1 mmol/L; Blood Urea Nitrogen 29 mg/dL (9-20); Calcium 8.4 mg/dL (8.4-10.2); Carbon Dioxide 26 mmol/L (22-30); Chloride 116 mmol/L (98-107); Glucose 118 mg/dL (74-99); Non-African American GFR(CKD) 55 (>60 ml/min/1.73 sqM); Potassium 3.5 mmol/L (3.5-5.1); Sodium 143 mmol/L (137-145)
[2020-08-02] MEDS: ASPIRIN 81 MG PO SCH (08:09)
[2020-08-02] MEDS: DONEPEZIL 10 MG TAB PO SCH (08:09)
[2020-08-02] MEDS: MULTIVITAMINS, THERA 1 EACH TAB PO SCH (08:09)
[2020-08-02] MEDS: CITALOPRAM HYDROBROMIDE 20 MG TAB PO SCH (08:09)
[2020-08-02] MEDS: CYANOCOBALAMIN 500 MCG TAB PO SCH (08:09)
[2020-08-02] MEDS: ASCORBIC ACID 500 MG TAB PO SCH ×2 (08:09→20:56)
[2020-08-02] MEDS: CARBIDOPA-LEVODOPA 25-100 MG 1 EACH TAB PO SCH ×2 (08:09→20:57)
[2020-08-02] MEDS: TAMSULOSIN 0.4 MG CAP.ER.24H PO SCH ×2 (08:09→20:57)
[2020-08-02] MEDS: THIAMINE 100 MG TAB PO SCH (08:09)
[2020-08-02] MEDS: FOLIC ACID 1 MG TAB PO SCH (08:09)
[2020-08-02] MEDS: ZINC SULFATE 220 MG CAP PO SCH (08:09)
[2020-08-02] MEDS: CHOLECALCIFEROL 1,000 UNIT TAB PO SCH (08:09)
[2020-08-02] MEDS: DEXAMETHASONE SOD PHOSPHATE 10 MG/ML 1 ML VIAL IV SCH (08:10)
[2020-08-02] MEDS: ENOXAPARIN 40 MG/0.4 ML SYRINGE SQ SCH (08:10)
[2020-08-02] MEDS: POTASSIUM CHLORIDE ER 10 MEQ TAB.ER.PRT PO SCH (10:41)
--- NOTE | 2020-08-02 13:28 | P.PN ---
Subjective Progress Note Date: 08/02/20 This is an 89-year-old male who was recently admitted with possible acute urinary tract infection with sepsis and is being closely monitored. Urine cultures have been negative and patient is maintained on Zosyn and will continue at this time. Infectious disease is following. Patient continues to be con fused and weak and PT/OT following recommending 24-hour care or subacute rehab and patient does reside at [facility]. Will discuss with social work about discharge planning needs. Most recent d-dimer was elevated although multiple Covid 19 testings have been negative. Patient is currently maintaining 92% on 4 L via nasal cannula. No reports of chest pain or shortness of breath. Patient continues to be confused. Patient is afebrile. Will continue to monitor closely. Neurology has also seen and evaluated the patient recommending outpatient follow-up for further EMG testing related to the left foot drop. 07/29/2020 Patient is seen and evaluated and follow-up and is currently maintained on IV antibiotics in the form of Zosyn and will continue at this time. The urine cultures thus far remain negative although currently pending on finalization. Patient having multiple episodes of diarrhea and is currently being tested for C. diff which is pending at this time. Patient is awake although slightly confused at times. Patient continues to be weak requiring assistance with álvaro pinon. She is currently on 2 L via nasal cannula and oxygen saturation is 92%. Potassium is found to be 3.1 and will replace. Will repeat a.m. labs. Patient is maintained on dexamethasone along with Lovenox and vitamin supplements along with zinc and will continue at this time. 07/30/2020 Patient is seen in follow-up today and is lethargic although arousable. Per nursing staff patient has been spiking fevers throughout the night. Will order influenza testing along with repeat blood cultures and a 2-D echo. Patient is maintained on IV antibiotics in the form of Zosyn and will continue. Infectious disease is following. Repeat urine cultures show no growth. C. diff testing was negative and patient's loose stools continue although have slightly improved. Patient is weak and lethargic and will require ECF for strength and mobility once stabilized and discharged. Discussed with family of CODE STATUS and patient is a no code. Patient continues to be confused although is arousa ble and has conversation. 07/31/2020 Patient is seen in follow-up today and continues to be closely monitored. Patient being followed by infectious disease as patient remains on IV antibiotics in the form of Zosyn. Urine and blood cultures have been negative. Patient also had influenza and C. diff testing which as been negative. Patient's diarrhea has improved. Patient continues to have poor oral intake and needs encouragement with one-to-one supervision and maintaining aspiration precautions. Discussed with nursing staff about continuing to encourage oral intake patient states he does not have much of an appetite. Patient continues to have a cough and was placed on 1 L of oxygen via nasal cannula and a chest x- ray was obtained. Chest x-ray shows improving bilateral lung infiltrates. Sodium was found to be elevated at 148 and gentle IV fluids discontinued and will switch to D5 in water at 50 mL per hour. Potassium improved and is currently 3.9. White blood count remains at 13.3 and hemoglobin is 10.7. Pro- calcitonin is also elevated at 0.18 although this is improved from previous. CRP trending down as well. Creatinine is 1.3. Patient continues to be slightly confused although appears more alert and oriented today and sitting up in the chair. 08/01/2020 Patient is seen and evaluated in follow-up currently sitting up in bed awake alert and oriented 1 continues to be slightly confused although having more conversation each day. Patient is maintained on IV antibiotic some the form of Zosyn and will continue. Infectious disease is following. Patient sodium slightly improved today and is 144 with a potassium of 3.6 and creatinine slightly improved as well at 1.24. Will continue with D5 water at 50 mL per hour and repeat labs tomorrow. Continue to encourage oral intake and maintain current diet with supervision and aspiration precautions. Patient has remained afebrile for the last 2 days. 08/02/2020 Patient seen this morning and sodium this morning is 143, potassium is 3.5, and creatinine slowing trending down and is 1.18. Patient to continue with ground diet with assistance with meals and supervision. Patient has been afebrile. Infectious disease following and will likely finish antiobiotic therapy with oral Avelox on discharge. Patient will be going to [facility] once stabilized. Social work following and working of the discharge planning. Review of systems: Constitutional: Reports fatigue Cardiovascular: No reports of chest pain or palpitations Respiratory: No reports of shortness of breath, reports cough GI: No reports of nausea, vomiting, or diarrhea : No reports of dysuria or retention Neurovascular: Reports weakness All medications have been reviewed Active Medications Acetaminophen (Acetaminophen Tab 325 Mg Tab) 650 mg PO Q4HR PRN PRN Reason: Fever and/ or Pain Last Admin: 07/28/20 19:11 Dose: 650 mg Documented by: Hydrocodone Bitart/Acetaminophen (Hydrocodone/Apap 5-325mg 1 Each Tab) 1 each PO Q6HR PRN PRN Reason: Pain Last Admin: 07/30/20 01:48 Dose: 1 each Documented by: Albuterol/Ipratropium (Ipratropium-Albuterol 3 Ml Neb) 3 ml INHALATION RT-Q4H PRN PRN Reason: shortness of breath Last Admin: 07/28/20 08:30 Dose: 3 ml Documented by: Alprazolam (Alprazolam 0.25 Mg Tab) 0.25 mg PO TID PRN PRN Reason: Anxiety Last Admin: 07/31/20 20:30 Dose: 0.25 mg Documented by: Ascorbic Acid (Ascorbic Acid 500 Mg Tab) 500 mg PO BID [facility] Last Admin: 08/02/20 08:09 Dose: 500 mg Documented by: Aspirin (Aspirin 81 Mg) 81 mg PO DAILY [facility] Last Admin: 08/02/20 08:09 Dose: 81 mg Documented by: Atorvastatin Calcium (Atorvastatin 40 Mg Tab) 40 mg PO HS [facility] Last Admin: 08/01/20 20:30 Dose: 40 mg Documented by: Carbidopa/Levodopa (Carbidopa-Levodopa 25-100 Mg 1 Each Tab) 1 each PO BID [facility] Last Admin: 08/02/20 08:09 Dose: 1 each Documented by: Cholecalciferol (Cholecalciferol 1,000 Unit Tab) 2,000 unit PO DAILY [facility] Last Admin: 08/02/20 08:09 Dose: 2,000 unit Documented by: Citalopram Hydrobromide (Citalopram Hydrobromide 20 Mg Tab) 20 mg PO DAILY [facility] Last Admin: 08/02/20 08:09 Dose: 20 mg Documented by: Cyanocobalamin (Cyanocobalamin 500 Mcg Tab) 1,000 mcg PO DAILY [facility] Last Admin: 08/02/20 08:09 Dose: 1,000 mcg Documented by: Dexamethasone Sodium Phosphate (Dexamethasone Sod Phosphate 10 Mg/Ml 1 Ml Vial) 6 mg IV DAILY [facility] Last Admin: 08/02/20 08:10 Dose: 6 mg Documented by: Donepezil HCl (Donepezil 10 Mg Tab) 10 mg PO DAILY [facility] Last Admin: 08/02/20 08:09 Dose: 10 mg Documented by: Enoxaparin Sodium (Enoxaparin 40 Mg/0.4 Ml Syringe) 40 mg SQ DAILY [facility] Last Admin: 08/02/20 08:10 Dose: 40 mg Documented by: Folic Acid (Folic Acid 1 Mg Tab) 1 mg PO DAILY@1200 [facility] Last Admin: 08/02/20 08:09 Dose: 1 mg Documented by: Piperacillin Sod/Tazobactam (Sod 3.375 gm/ Sodium Chloride) 100 mls @ 25 mls/hr IVPB Q8HR [facility] Last Admin: 08/02/20 08:08 Dose: 25 mls/hr Documented by: Dextrose/Water (Dextrose 5%-Water Iv Soln) 1,000 mls @ 50 mls/hr IV .Q20H [facility] Last Admin: 08/02/20 03:35 Dose: Not Given Documented by: Meclizine HCl (Meclizine 12.5 Mg Tab) 12.5 mg PO TID PRN PRN Reason: Vertigo Melatonin (Melatonin 3 Mg Tablet) 3 mg PO HS [facility] Last Admin: 08/01/20 20:30 Dose: 3 mg Documented by: Miscellaneous Information (Pneumonia Protocol Utilized 1 Each Misc) 1 each PO ONCE PRN PRN Reason: Per Protocol Miscellaneous Information (Potassium Replacement Protocol 1 Each Misc) 1 each MISCELLANE DAILY PRN; Protocol PRN Reason: Per Protocol Miscellaneous Information (Potassium Replacement Protocol 1 Each Misc) 1 each MISCELLANE DAILY PRN; Protocol PRN Reason: Per Protocol Multivitamins (Multivitamins, Thera 1 Each Tab) 1 each PO DAILY@1200 [facility] Last Admin: 08/02/20 08:09 Dose: 1 each Documented by: Potassium Chloride (Potassium Chloride Er 10 Meq Tab.Er.Prt) 10 meq PO DAILY [facility] Last Admin: 08/02/20 10:41 Dose: 10 meq Documented by: Tamsulosin HCl (Tamsulosin 0.4 Mg Cap.Er.24h) 0.4 mg PO BID [facility] Last Admin: 08/02/20 08:09 Dose: 0.4 mg Documented by: Thiamine HCl (Thiamine 100 Mg Tab) 100 mg PO DAILY@1200 [facility] Last Admin: 08/02/20 08:09 Dose: 100 mg Documented by: Zinc Sulfate (Zinc Sulfate 220 Mg Cap) 220 mg PO DAILY [facility] Last Admin: 08/02/20 08:09 Dose: 220 mg Documented by: Objective - Vital Signs Vital signs: Vital Signs Temp 97.1 F L 08/02/20 02:00 Pulse 96 08/02/20 02:00 Resp 20 08/02/20 02:00 BP 136/89 08/02/20 02:00 Pulse Ox 92 L 08/02/20 02:00 Intake & Output 08/01/20 08/02/20 08/02/20 18:59 06:59 18:59 Intake Total 960 Output Total 700 300 Balance -700 660 Intake: Intake, IV Titration 600 Amount Dextrose 5% in Water 1, 400 000 ml @ 50 mls/hr IV . Q20H [facility] Rx#:[id number] Piperacillin-Tazobactam 3 200 .375 gm In Sodium Chloride 0.9% 100 ml @ 25 mls/hr IVPB Q8HR [facility] Rx# :[id number] Oral 360 Output: Urine 700 300 Other: Voiding Method Indwelling Catheter Indwelling Catheter # Bowel Movements 1 1 - Exam Gen: This is a 89-year-old male sitting up in the chair, awake, alert and oriented 1, well-developed, well-nourished. Temp is 98.3F, pulse is 76, respirations are 16, blood pressure is 161/83, oxygen saturation is 99% on 3 L via nasal cannula. HEENT: Head is atraumatic, normocephalic. Pupils equal, round. Sclerae is anicteric. NECK: Supple. No JVD. No lymphadenopathy. No thyromegaly. LUNGS: Breath sounds diminished at the bases with no wheezing or rhonchi noted. No intercostal retractions. HEART: S1, S2 are muffled ABDOMEN: Soft. Bowel sounds are present. No masses. No tenderness. EXTREMITIES: No pedal edema. No calf tenderness. NEUROLOGICAL: Patient is awake, alert and oriented x1. Confused. Diffusely weak - Labs CBC & Chem 7: 08/01/20 08:12 08/02/20 07:29 Labs: Abnormal Lab Results - Last 24 Hours (Table) 08/01/20 08/01/20 Range/Units 08:12 08:12 WBC 11.8 H (3.8-10.6) k/uL RBC 3.69 L (4.30-5.90) m/uL Hgb 10.5 L (13.0-17.5) gm/dL Hct 32.2 L (39.0-53.0) % Neutrophils # 10.4 H (1.3-7.7) k/uL Lymphocytes # 0.7 L (1.0-4.8) k/uL Chloride 117 H (98-107) mmol/L BUN 27 H (9-20) mg/dL Glucose 134 H (74-99) mg/dL Calcium 8.3 L (8.4-10.2) mg/dL Microbiology - Last 24 Hours (Table) 07/27/20 14:27 Blood Culture - Preliminary Blood No Growth after 120 hours 07/27/20 14:12 Blood Culture - Preliminary Blood No Growth after 120 hours 07/30/20 14:14 Blood Culture - Preliminary Blood No Growth after 48 hours Assessment and Plan Assessment: Acute urinary tract infection with possible sepsis, present on admission with possible indwelling Barnard catheter. 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 Patient is maintained on IV antibiotics in the form of Zosyn and will continue at this time. Patient remans afebrile. Multiple medical consultations following including infectious disease. Due to multiple complex medical issues, prognosis is guarded. Case management and social work following working on ECF placement for continued PT/OT therapy. Patient will be going to [facility] once stabilized and discharged. Sodium stable today. Continue to encourage oral fluids. Further recommendations to follow. [facility].
[2020-08-02] MEDS: ATORVASTATIN 40 MG TAB PO SCH (20:56)
[2020-08-02] MEDS: MELATONIN 3 MG TABLET PO SCH (20:57)
--- NOTE | 2020-08-02 21:46 | PN ---
PROGRESS NOTE DATE OF SERVICE: 08/02/2020 REASON FOR FOLLOWUP: Aspiration pneumonia. INTERVAL HISTORY: The patient is currently afebrile. The patient has been breathing comfortably. Denies having any chest pain or shortness of breath. Occasional cough. No abdominal pain or diarrhea. PHYSICAL EXAMINATION: Blood pressure 160/90 with a pulse of 94, temperature 97.4. He is 99% on 3 L nasal cannula. General description is an elderly male lying in bed in no distress. RESPIRATORY SYSTEM: Unlabored breathing with decreased breath sounds at the base. No wheeze. HEART: S1, S2. Regular rate and rhythm. ABDOMEN: Soft. No tenderness. LABS: BUN of 29, creatinine 1.18. DIAGNOSTIC IMPRESSION AND PLAN: Patient with a fever. Source is likely aspiration pneumonia, with overall improvement on Zosyn. Fever resolved. Plan to finish therapy with oral Avelox 400 daily for a week and close outpatient followup. MMODL / IJN: [id number] /
[2020-08-03 07:56] VITALS: BP 155/87; PULSE 69; RESP 16; TEMP 97.6
[2020-08-03] MEDS: CITALOPRAM HYDROBROMIDE 20 MG TAB PO SCH (08:46)
[2020-08-03] MEDS: DEXAMETHASONE SOD PHOSPHATE 10 MG/ML 1 ML VIAL IV SCH (08:46)
[2020-08-03] MEDS: ZINC SULFATE 220 MG CAP PO SCH (08:46)
[2020-08-03] MEDS: TAMSULOSIN 0.4 MG CAP.ER.24H PO SCH (08:46)
[2020-08-03] MEDS: POTASSIUM CHLORIDE ER 10 MEQ TAB.ER.PRT PO SCH (08:46)
[2020-08-03] MEDS: CYANOCOBALAMIN 500 MCG TAB PO SCH (08:46)
[2020-08-03] MEDS: CARBIDOPA-LEVODOPA 25-100 MG 1 EACH TAB PO SCH (08:46)
[2020-08-03] MEDS: ASPIRIN 81 MG PO SCH (08:46)
[2020-08-03] MEDS: CHOLECALCIFEROL 1,000 UNIT TAB PO SCH (08:46)
[2020-08-03] MEDS: DONEPEZIL 10 MG TAB PO SCH (08:46)
[2020-08-03] MEDS: ASCORBIC ACID 500 MG TAB PO SCH (08:46)
[2020-08-03] MEDS: ENOXAPARIN 40 MG/0.4 ML SYRINGE SQ SCH (08:47)
[2020-08-03] MEDS: PIPERACILLIN-TAZOBACTAM 3.375 GM in SODIUM CHLORIDE 0.9% 100 ML IVPB SCH ×2 (08:47→16:01)
[2020-08-03] MEDS: MULTIVITAMINS, THERA 1 EACH TAB PO SCH (11:57)
[2020-08-03] MEDS: THIAMINE 100 MG TAB PO SCH (11:57)
[2020-08-03] MEDS: FOLIC ACID 1 MG TAB PO SCH (11:57)
--- NOTE | 2020-08-03 13:34 | P.DS ---
Providers Date of admission: 07/25/20 08:38 Expected date of discharge: 08/03/20 Attending physician: Enrique Rush Consults: 07/22/20 12:23 Consult Physician Routine Consulting Provider: Jose Hussein Consult Reason/Comments: weakness, possible parkinsons dz Do you want consulting provider notified?: Yes 07/23/20 16:30 Consult Physician Routine Consulting Provider: Keyana Barnard Consult Reason/Comments: carotid stenosis Do you want consulting provider notified?: Yes 07/24/20 16:07 Consult Physician Routine Consulting Provider: Oni Gallegos Consult Reason/Comments: sepsis Do you want consulting provider notified?: Yes Primary care physician: Physician Nonstaff Hospital Course: final diagnosis Acute urinary tract infection with possible sepsis, present on admission with possible indwelling Barnard catheter. 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 Patient will follow-up with primary care provider in the outpatient setting upon discharge. Patient is to continue with oral dexamethasone for the next 4 days and then may discontinue along with vitamin C and D and zinc supplements. Patient to continue with Lovenox subcu daily injections for the next 1 week and then may discontinue. Total time taken is greater than 35 minutes. Hospital course This is a 89-year-old male who was recently admitted with possible acute urinary tract infection with sepsis and was being closely monitored. Patient had multiple Covid 19 tests that were negative along with influenza and C. diff which all have come back negative. Patient was maintained on IV antibiotics in the form of Zosyn and infectious disease was following. Patient improved clinically and will continue with Avelox 400 mg daily for the next 1 week and then may discontinue. Will also continue with vitamin supplements along with zinc to complete the course. Patient had intermittent periods of fever although has been afebrile and blood and urine cultures have been negative. Patient continues to be confused although mentation and level of alertness has improved. Patient was seen and evaluated by speech therapy recommending dysphagia to ground diet with strict aspiration precautions and head of the bed elevated 30- 45 at all times along with supervision with meals. Patient's CODE STATUS is no code and needs to discuss possible palliative care at [facility]. Currently no reports of chest pain, shortness of breath, or palpitations. Patient is afebrile. No reports of nausea or vomiting and patient is tolerating diet. Patient will be going to [facility] today. Patient needs to be considered for palliative care once at [facility]. Prognosis is guarded. On exam vital signs are stable. Temp is 97.6F, pulse is 69, respirations are 16, blood pressure is 155/87, oxygen saturation is 98% on 2 L of oxygen via nasal cannula. Cardio S1, S2 are muffled. Respiratory system shows diminished breath sounds at the bases with no wheezing or rhonchi noted. Abdomen is soft and nontender. Nervous system shows diffuse weakness. Please refer to medication reconciliation sheet for a list of medications. Patient Condition at Discharge: Fair Plan - Discharge Summary Discharge Rx Participant: No New Discharge Prescriptions: New Meclizine [Antivert] 12.5 mg PO TID PRN tab PRN Reason: Vertigo Aspirin 81 mg PO DAILY chew Moxifloxacin HCl [Avelox] 400 mg PO DAILY 7 Days #7 tablet Dexamethasone 6 mg PO DAILY 4 Days #4 tablet Ipratropium-Albuterol Nebulize [Duoneb 0.5 mg-3 mg/3 ml Soln] 3 ml INHALATION RT-Q4H PRN ml PRN Reason: shortness of breath Folic Acid 1 mg PO DAILY@1200 tab Potassium Chloride ER [K-Dur 10] 10 meq PO DAILY tab.er.prt Atorvastatin [Lipitor] 40 mg PO HS tab Enoxaparin [Lovenox] 40 mg SQ DAILY 7 Days #7 syringe Multivitamins, Thera [Multivitamin (formulary)] 1 each PO DAILY@1200 tab Carbidopa-Levodopa 25-100 mg [Sinemet 25-100 mg] 1 each PO BID tab Acetaminophen Tab [Tylenol] 650 mg PO Q4HR PRN tab PRN Reason: Fever And/ Or Pain Thiamine [Vitamin B-1] 100 mg PO DAILY@1200 tab Cyanocobalamin [Vitamin B-12] 1,000 mcg PO DAILY tab ALPRAZolam [Xanax] 0.25 mg PO TID PRN #6 tab PRN Reason: Anxiety Continue Tamsulosin HCl [Flomax] 0.4 mg PO BID Donepezil [Aricept] 10 mg PO DAILY Citalopram Hydrobromide [CeleXA] 20 mg PO DAILY Cholecalciferol [Vitamin D3 (25 Mcg = 1000 Iu)] 2,000 unit PO DAILY Melatonin 3 mg PO HS Ascorbic Acid [Vitamin C] 500 mg PO BID Zinc 50 mg PO DAILY Discontinued Naproxen Sodium [Aleve] 220 mg PO DAILY PRN PRN Reason: Pain Discharge Medication List Citalopram Hydrobromide [CeleXA] 20 mg PO DAILY 06/14/20 [History] Donepezil [Aricept] 10 mg PO DAILY 06/14/20 [History] Tamsulosin HCl [Flomax] 0.4 mg PO BID 06/14/20 [History] Ascorbic Acid [Vitamin C] 500 mg PO BID 07/22/20 [History] Cholecalciferol [Vitamin D3 (25 Mcg = 1000 Iu)] 2,000 unit PO DAILY 07/22/20 [History] Melatonin 3 mg PO HS 07/22/20 [History] Zinc 50 mg PO DAILY 07/22/20 [History] ALPRAZolam [Xanax] 0.25 mg PO TID PRN #6 tab 08/03/20 [Rx] Acetaminophen Tab [Tylenol] 650 mg PO Q4HR PRN tab 08/03/20 [Rx] Aspirin 81 mg PO DAILY chew 08/03/20 [Rx] Atorvastatin [Lipitor] 40 mg PO HS tab 08/03/20 [Rx] Carbidopa-Levodopa 25-100 mg [Sinemet 25-100 mg] 1 each PO BID tab 08/03/20 [Rx] Cyanocobalamin [Vitamin B-12] 1,000 mcg PO DAILY tab 08/03/20 [Rx] Dexamethasone 6 mg PO DAILY 4 Days #4 tablet 08/03/20 [Rx] Enoxaparin [Lovenox] 40 mg SQ DAILY 7 Days #7 syringe 08/03/20 [Rx] Folic Acid 1 mg PO DAILY@1200 tab 08/03/20 [Rx] Ipratropium-Albuterol Nebulize [Duoneb 0.5 mg-3 mg/3 ml Soln] 3 ml INHALATION RT-Q4H PRN ml 08/03/20 [Rx] Meclizine [Antivert] 12.5 mg PO TID PRN tab 08/03/20 [Rx] Moxifloxacin HCl [Avelox] 400 mg PO DAILY 7 Days #7 tablet 08/03/20 [Rx] Multivitamins, Thera [Multivitamin (formulary)] 1 each PO DAILY@1200 tab 08/03/20 [Rx] Potassium Chloride ER [K-Dur 10] 10 meq PO DAILY tab.er.prt 08/03/20 [Rx] Thiamine [Vitamin B-1] 100 mg PO DAILY@1200 tab 08/03/20 [Rx] Follow up Appointment(s)/Referral(s): Nonstaff,Physician [Primary Care Provider] - 1-2 days Activity/Diet/Wound Care/Special Instructions: Patient is going to [facility] Activity as tolerated Continue dysphagia to ground diet with one-to-one supervision and head of the bed elevated 30-45 at all times and strict aspiration precautions Continue with antibiotic for 7 days and then may discontinue Continue with dexamethasone for the next 4 days to complete the course and then may discontinue Follow-up with primary care provider upon discharge Transitions home care: #[phone] Discharge Disposition: TRANSFER TO SNF/ECF
--- NOTE | 2020-08-03 17:59 | PN ---
PROGRESS NOTE DATE OF SERVICE: 08/03/2020 REASON FOR FOLLOWUP: Aspiration pneumonia. INTERVAL HISTORY: The patient was seen on rounds this afternoon. The patient overall is afebrile. The patient is breathing comfortably. No fever has been recorded in the last 4 days. The patient denies having any chest pain. Minimal cough. No abdominal pain or diarrhea. PHYSICAL EXAMINATION: Blood pressure 155/87, pulse of 69, temperature 97.6. He is 98% on 2 L nasal cannula. General description is an elderly male up in the chair in no distress. RESPIRATORY SYSTEM: Unlabored breathing with decreased breath sounds at the base. No wheeze. HEART: S1, S2. Regular rate and rhythm. ABDOMEN: Soft. No tenderness. LABS: Creatinine is 1.18. Blood culture has been negative. DIAGNOSTIC IMPRESSION AND PLAN: Patient with fever. Concern is likely for aspiration pneumonia. Overall improvement on Zosyn. Finish therapy with oral Avelox 400 daily for a week and close outpatient followup. MMODL / IJN: [id number] /
== END 2020-08-03 16:58 | DRG 871 ==
LOC: EC 23:48 → 4SSUR 07-22 01:49 → OBSVTOIN 07-25 08:38
PROVIDERS: ADMIT Hospitalist; ATTEND Hospitalist
DX: A41.9 Sepsis, unspecified organism (principal); G93.41 Metabolic encephalopathy; J69.0 Pneumonitis due to inhalation of food and vomit; T83.518A Infection and inflammatory reaction due to other urinary catheter, initial encounter; E87.1 Hypo-osmolality and hyponatremia; N39.0 Urinary tract infection, site not specified; F02.80 Dementia in other diseases classified elsewhere, unspecified severity, without behavioral disturbance, psychotic disturbance, mood disturbance, and anxiety; Z66 Do not resuscitate; M19.90 Unspecified osteoarthritis, unspecified site; F32.9 Major depressive disorder, single episode, unspecified; S01.112A Laceration without foreign body of left eyelid and periocular area, initial encounter; S01.81XA Laceration without foreign body of other part of head, initial encounter; I51.7 Cardiomegaly; E87.70 Fluid overload, unspecified; W19.XXXA Unspecified fall, initial encounter; D63.8 Anemia in other chronic diseases classified elsewhere; Z20.822 Contact with and (suspected) exposure to COVID-19; G20 Parkinson's disease; M21.372 Foot drop, left foot; I65.22 Occlusion and stenosis of left carotid artery; I73.9 Peripheral vascular disease, unspecified; H53.462 Homonymous bilateral field defects, left side; R29.6 Repeated falls; Z79.899 Other long term (current) drug therapy; Z87.891 Personal history of nicotine dependence; Z91.81 History of falling
CPT/HCPCS: 36415; 70450; 70551; 71045; 71046; 71275; 72125; 72170; 74177; 80048; 80053; 80061; 81001; 82607; 82728; 82746; 83036; 83605; 83615; 83735; 84132; 84145; 85025; 85379; 85610; 85730; 86140; 87040; 87086; 87324; 87449; 87502; 87635; 93005; 93306; 93880; 93970; 94640; 96365; 99285